=== PATIENT | male | born 1960 | race Caucasian/White ===

== ENCOUNTER → 2016-12-25 11:39 | Outpatient (CLI) | payer MEDICARE, BC ==
[2014-01-11 14:01] VITALS: BMI 23.6
[~2016-12-25 11:39] MED LIST: COUMADIN10 MG PO; COUMADIN2.5 MG PO; COUMADIN5 MG PO; DETROL2 MG PO; FERROUS SULFAT325 MG PO; FEXMID7.5 MG PO; FLOMAX0.4 MG PO; FUROSEMIDE20 MG PO; K-TAB10 MEQ PO; LAMISIL250 MG PO; LOVENOX80 MG/0.8 SQ; NEURONTIN 400400 MG PO; NEURONTIN800 MG PO; NEXIUM40 MG PO; NORCO 10/325 TA1 TA1 PO; PAXIL30 MG PO; PRINIVIL20 MG PO; REGLAN5 MG PO; SENOKOT TO GO8.6 MG PO; SINGULAIR10 MG PO; TRAZODONE HCL50 MG PO; VESICARE10 MG PO; ZANAFLEX4 MG PO
[2017-03-07 09:24] VITALS: BMI 24.3
== END | disposition home or self-care (01) ==
LOC: D.RAD 11:39
DX: K59.00 Constipation, unspecified (principal)

== ENCOUNTER 2017-03-02 18:49 | Emergency (ER) | payer MEDICARE, BC ==
[2014-01-11 14:01] VITALS: BMI 23.6
[~2017-03-02 18:49] MED LIST changes: -FERROUS SULFAT325 MG PO; -FUROSEMIDE20 MG PO; -K-TAB10 MEQ PO; -LAMISIL250 MG PO; -TRAZODONE HCL50 MG PO
[2017-03-07 09:24] VITALS: BMI 24.3
== END 2017-03-02 19:00 | disposition left against medical advice (07) ==
LOC: D.ER 18:49
DX: Z02.9 Encounter for administrative examinations, unspecified (principal)

== ENCOUNTER 2017-03-03 12:24 | Emergency (ER) | payer MEDICARE, BC ==
[2014-01-11 14:01] VITALS: BMI 23.6
[2017-03-03 14:00] LABS: BASOPHILS 0.4 % (0-2); EOSINOPHILS 3.7 % (0-7); HEMATOCRIT 27.2 % (42.0-54.0); HEMOGLOBIN 8.6 g/dL (13.5-17.5); IMMATURE GRANULOCYTES 0.4 % (0-5); LYMPHOCYTES 8.3 % (15-50); MCH 28.7 pg (26.0-34.0); MCHC 31.6 g/dL (31.0-37.0); MCV 90.7 fL (80.0-100.0); MEAN PLATELET VOLUME 8.5 fL (7.4-10.4); MONOCYTES 10.4 % (2-11); NEUTROPHILS 76.8 % (40-80); RDW 18.6 % (11.5-14.5); WBC 7.9 10x3/uL (4.8-10.8)
[2017-03-03 14:01] LABS: PLATELET COUNT 405 10x3/uL (130-400)
[2017-03-03 14:14] LABS: ALBUMIN 2.1 g/dL (3.4-5.0); ALKALINE PHOSPHATASE 128 U/L (46-116); ALT (SGPT) 15 U/L (10-68); CALC OSMOLALITY 263 mosm/kg (275-300); CARBON DIOXIDE 27.5 mmol/L (21.0-32.0); CHLORIDE - SERUM 98 mmol/L (98-107); CREATININE - SERUM 0.7 mg/dL (0.6-1.3); GLUCOSE 95 mg/dL (74-106); POTASSIUM - SERUM 4.2 mmol/L (3.5-5.1); PROTEIN - SERUM 7.4 g/dL (6.4-8.2); SODIUM 133 mmol/L (136-145); UREA NITROGEN 8 mg/dL (7-18); eGFR NON AFRICAN AMERICAN > 90 mL/min (90-120)
[2017-03-03 14:23] LABS: BILIRUBIN - TOTAL 0.08 mg/dL (0.2-1.3)
[2017-03-07 09:24] VITALS: BMI 24.3
== END 2017-03-03 16:25 | disposition home or self-care (01) ==
LOC: D.ER 12:24
PROVIDERS: Emergency Medicine
DX: D64.9 Anemia, unspecified (principal); L89.323 Pressure ulcer of left buttock, stage 3; G82.20 Paraplegia, unspecified; I10 Essential (primary) hypertension; C61 Malignant neoplasm of prostate

== ENCOUNTER 2017-03-06 15:38 | Inpatient (IN) | payer MEDICARE, BC ==
[~2017-03-06] VITALS: Ht 177.8 cm; Wt 97.3 kg
--- NOTE | ~2017-03-06 | OP ---
PATIENT NAME: SRIKANTH JAMES MEDICAL RECORD: [id number] :58 LOCATION:D.M2 D.2107 ADMISSION DATE:03/06/17 SURGEON: NELLI AYALA MD DATE OF OPERATION: 03/10/2017 PREOPERATIVE DIAGNOSES: 1. Multiple decubitus ulcers, these will be better defined below. 2. Third-degree internal hemorrhoidal prolapse of the anus. 3. Intractably symptomatic internal and external hemorrhoids. POSTOPERATIVE DIAGNOSES: 1. Intractably symptomatic internal and external hemorrhoids, the internal hemorrhoids have been bleeding. 2. Fourth degree internal hemorrhoidal prolapse of the anus, not third degree. 3. Low rectal polyp, which was a pedunculated polyp, did not appear to be rectal mucosa, but instead it did appear to be a polypoid lesion. The polyp was a 1.5-cm polyp. 4. Multiple decubitus ulcers, which are described below. PROCEDURES: 1. Procedure for prolapse and hemorrhoids. 2. Transanal excision of low rectal polyp. 3. Excisional debridement of an infected right greater trochanteric bursa. This was a fourth degree decubitus ulcer. There was undermining circumferentially in this bursa. The longest dimension of undermining was 6 cm and was in a caudad direction. Purulence was identified. The debridement was carried out with a scalpel as well as with rongeurs. Cultures were obtained. The debridement included subcutaneous tissue, scar tissue, as well as granulation tissue and he states that the dimensions of debridement, including margins, measured 8.2 cm x 6.7 cm. 4. Excisional debridement of the lateral aspect of the right fifth toe. Debridement included skin and subcutaneous tissue as well as tendinous material. This was an infected ulcer. The debridement margins were 2.8 x 1.4 cm and included skin and subcutaneous tissue as well as eschar and tendinous material. 5. Excisional debridement of right medial decubitus ulcer #1. The dimensions of the debridement, including margins, measured 0.5 cm x 0.9 cm and included eschar as well as exudate. This did not appear to be infected. 6. Excisional debridement of a large right medial decubitus ulcer. Dimensions of debridement, including margins, measured 5.6 x 7.8 cm and included exudate as well some necrotic fascia. Debridement was carried out sharply. 7. Excisional debridement of trochanteric decubitus ulcer, left which was 7.0 x 5.0 cm ulcer included soft eschar as well as necrotic material. This was infected. Also included some necrotic subcutaneous adipose tissue. 8. Excisional debridement of left lateral fifth toe decubitus ulcer. Dimensions of debridement, including margins, measured 2.0 cm x 2.0 cm including skin and subcutaneous tissue as well as eschar. The debridements were carried out sharply with rongeurs as well as with scalpel and debrided back to healthy bleeding tissue. Meticulous hemostasis was achieved with electrocautery. I stuffed some silver rope in the tunneled right greater trochanteric infected bursa. Sterile dressings were applied. DESCRIPTION OF PROCEDURE: The patient in the full lateral decubitus to decubitus position with the left side down, a PPH dilator retractor was placed. The retractor was sewn in place to the surrounding anoderm with 2-0 silks. A OPERATIVE REPORT [id number] SRIKANTH JAMES pursestring suture of 2-0 Prolene was applied 1 cm cephalad to the clear retractor. The stapling device was advanced. The anvil was cephalad to the pursestring suture, which was then tightened and tied. The stapling device was engaged. It was held in place for 3 minutes and then fired. It was then removed. There was an entire donut of internal hemorrhoidal and rectal mucosal tissue within the stapling device. Bleeding along the anastomotic staple line was controlled with 3-0 Vicryl in [id number] fashion. Gelfoam was applied within the anus and lower rectum. A combination of Marcaine and steroid preparation were used to infiltrate the perianal tissues. I then inserted a U-shaped anal retractor. I noted the polypoid lesion that was about 3 cm from the dentate line up in the anus. I grasped this with forceps and then transected it with electrocautery. The resulting bleeding defect was closed with [id number] 3-0 Vicryl sutures. There was no further bleeding. The patient was then extubated and conveyed to post-anesthesia care unit where he was in stable condition. Due to the infected due to the right trochanteric bursa is going to be very important for us to obtain an orthopedic consultation. I have discussed this with Dr. Jain by phone. TRANSINT:[id number] Voice Confirmation ID: [id number] DOCUMENT ID: [id number] NELLI AYALA MD CC: SCOT JAIN MD [id number] DICTATION DATE: 03/10/171533 BELLING MACHINE OPERATOR: 03/11/17 0220 ADM IN [facility] [address] [id number]
--- NOTE | ~2017-03-06 | CN ---
PATIENT NAME:SRIKANTH JAMES MEDICAL RECORD: [id number] : 58 LOCATION:D. D.2107 ADMIT DATE: 03/06/17 ACCOUNT: [id number] CONSULTING PHYSICIAN: NELLI AYALA MD REFERRING PHYSICIAN: SCOT JAIN MD DATE OF CONSULTATION: 03/07/2017 Consultation Note Addendum CHIEF COMPLAINT: Decubitus ulcers. HISTORY OF PRESENT ILLNESS: The patient has several issues. He has had fever, chills as well as several decubitus ulcers, which will be better documented during the patient's operative procedure. He also has symptomatic hemorrhoids. They are high-grade III hemorrhoids. They caused bleeding. The patient has altered sensation in the perineum due to paraplegia. He had a history of multiple DVTs in the past. He has had some low-grade fever recently. He was recently evaluated by Dr. Martinez. Palpation aggravates. Nothing alleviates. Symptoms are mild. I am going to plan for prepped procedure for prolapse and hemorrhoids, possible single column or dual column hemorrhoidectomy. Also, excisional debridement of multiple decubitus ulcers. PAST MEDICAL AND SURGICAL HISTORY: He uses a wheelchair, paraplegia, wears glasses, has had an IVC filter in place, hypertension, history of prostate cancer, gastroesophageal reflux, rectal bleeding, depression and anxiety. Surgeries: Knee, back, hernia, aortic aneurysm repair, esophageal dilation. ALLERGIES: PENICILLIN V. HOME MEDICATIONS: Included warfarin. Please see the nursing list for the complete list of home medications. FAMILY HISTORY: A neurologic disorder as well as cardiovascular disease. SOCIAL HISTORY: Smokes everyday, I have advised him to quit smoking. Drinks alcohol. No recreational drug use. REVIEW OF SYSTEMS: Positive for fatigue. Negative for headache. Negative for chest pain. Positive for fever and chills. Positive for lower gastrointestinal bleeding, no shortness of breath. Positive for extremity contractures. PHYSICAL EXAMINATION: GENERAL: The patient appears acutely ill. Also appears chronically ill. VITAL SIGNS: Reviewed. HEAD: External ears appear normal. EYES: Extraocular movements are intact. NECK: Trachea is midline. CHEST: No intercostal retractions. PULMONARY: Nonlabored, no stridor. ABDOMEN: Nondistended. EXTREMITIES: Contractures are present. CONSULT REPORT [id number] SRIKANTH JAMES INTEGUMENT: Numerous areas of soft eschar with underlying purulence are present at the sites of decubitus ulcers. BACK: Stiff. I noted no definite thoracic kyphosis. LYMPHATICS: No lymphangitic streaking of the exposed extremities. IMPRESSION: 1. Multiple infected decubitus ulcers. 2. Symptomatic internal hemorrhoids with bleeding as well as anal prolapse. PLAN: As described above. TRANSINT:[id number] Voice Confirmation ID: [id number] DOCUMENT ID: [id number] NELLI AYALA MD CC: [id number] DICTATION DATE: 03/08/171719 POULTRY HUSBANDMAN: 03/08/171928 ADM IN [facility] [address] [place] [address]
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
[2017-03-06 16:51] VITALS: BP 173/96
--- NOTE | 2017-03-06 17:01 | NUR ---
IV ACCESS-22 GAUGE INSERTED IN LEFT HAND FOR ACCESS. OTONIEL ARZATE RN
[2017-03-06 17:53] VITALS: BP 173/96; BMI 24.4
[2017-03-06] MEDS ORDERED: NEURONTIN 400400 MG PO (18:33)
[2017-03-06] MEDS ORDERED: K-TAB10 MEQ PO (18:34)
[2017-03-06] MEDS ORDERED: FUROSEMIDE20 MG PO (18:35)
[2017-03-06] MEDS ORDERED: LAMISIL250 MG PO (18:36)
[2017-03-06] MEDS ORDERED: FERROUS SULFAT325 MG PO (18:37)
[2017-03-06] MEDS ORDERED: TRAZODONE HCL50 MG PO (18:38)
[2017-03-06 19:00] VITALS: BP 171/63
--- NOTE | 2017-03-06 19:56 | NUR ---
RECEIVED REPORT, COMPLAINS OF R. SHOULDER PAIN. CHRIS GARCIA
[2017-03-06 20:11] LABS: BASOPHILS 0.6 % (0-2); EOSINOPHILS 4.7 % (0-7); HEMATOCRIT 27.5 % (42.0-54.0); HEMOGLOBIN 8.6 g/dL (13.5-17.5); IMMATURE GRANULOCYTES 1.5 % (0-5); LYMPHOCYTES 12.2 % (15-50); MCH 28.4 pg (26.0-34.0); MCHC 31.3 g/dL (31.0-37.0); MCV 90.8 fL (80.0-100.0); MEAN PLATELET VOLUME 8.6 fL (7.4-10.4); RBC 3.03 10x6/uL (4.20-6.10); RDW 18.4 % (11.5-14.5); WBC 8.2 10x3/uL (4.8-10.8)
[2017-03-06 20:15] LABS: PLATELET COUNT 505 10x3/uL (130-400)
[2017-03-07 03:33] LABS: BASOPHILS 0.6 % (0-2); EOSINOPHILS 5.1 % (0-7); HEMATOCRIT 27.7 % (42.0-54.0); HEMOGLOBIN 8.6 g/dL (13.5-17.5); IMMATURE GRANULOCYTES 1.3 % (0-5); LYMPHOCYTES 9.9 % (15-50); MCH 28.3 pg (26.0-34.0); MCV 91.1 fL (80.0-100.0); MEAN PLATELET VOLUME 8.1 fL (7.4-10.4); MONOCYTES 8.8 % (2-11); NEUTROPHILS 74.3 % (40-80); PLATELET COUNT 464 10x3/uL (130-400); RBC 3.04 10x6/uL (4.20-6.10); RDW 18.4 % (11.5-14.5); WBC 6.8 10x3/uL (4.8-10.8)
[2017-03-07 03:43] LABS: INR 3.18 (0.85-1.17); PROTIME 32.9 SECONDS (11.6-15.0)
[2017-03-07 03:52] LABS: CALC OSMOLALITY 263 mosm/kg (275-300); CALCIUM 8.7 mg/dL (8.5-10.1); CARBON DIOXIDE 23.9 mmol/L (21.0-32.0); CHLORIDE - SERUM 100 mmol/L (98-107); CREATININE - SERUM 0.7 mg/dL (0.6-1.3); GLUCOSE 92 mg/dL (74-106); SODIUM 133 mmol/L (136-145); UREA NITROGEN 7 mg/dL (7-18); eGFR NON AFRICAN AMERICAN > 90 mL/min (90-120)
[2017-03-07 07:33] VITALS: BP 162/91
[2017-03-07 08:00] VITALS: BP 139/82
[2017-03-07 09:24] VITALS: Ht 177.8 cm; Wt 97.3 kg
--- NOTE | 2017-03-07 09:59 | NUR ---
Nutrition follow-up: Visited with pt re: Gavin nutritional supplement for aid with wound healing. Pt refuses to try it. RDN following.
[2017-03-07 20:00] VITALS: BP 119/85
--- NOTE | 2017-03-07 20:58 | NUR ---
PT AWAKE, ALERT, ORIENTED, SITTING UP IN BED. WHEN MEDS REVIEWED WITH PT, HE STATED THAT HE TAKES NEXIUM 40MG PO BID AT HOME AND IS WANTING PROTONIX STARTED BID WELL. PT DENIES ANY ACUTE NEEDS, IS NO ACUTE DISTRESS. CONTINUE TO MONITOR CLOSELY. BED LOW, CALL LIGHT IN REACH, SIDE RAILS X 2, HOB 30 DEGREES.
[2017-03-08] VITALS: BP 137/78
--- NOTE | 2017-03-08 02:03 | NUR ---
PT LYING ON HIS RIGHT SIDE REQUESTED, PILLOW IN BETWEEN HIS KNEES/LEGS AND BEHIND BACK. PTS EYES CLOSED, RESPIRATIONS EVEN AND UNLABORED. PT IS EASILY ROUSABLE TO VERBAL STIMULI. PT DENIES ANY ACUTE NEEDS. WILL CONTINUE TO MONITOR CLOSELY. BED LOW, CALL LIGHT IN REACH, SIDE RAILS X 2, HOB FLAT.
--- NOTE | 2017-03-08 02:05 | NUR ---
WILL HOLD OFF GETTING CONSENTS FOR UPCOMING SURGERY SIGNED R/T PT RECEIVING HIS 15:00 DOSE OF COUMADIN 03/07/17. WILL WAIT FOR A.M. LABS AND NOTIFY PHYSICIANS OF MOST RECENT PT/INR.
[2017-03-08 04:00] VITALS: BP 144/87
--- NOTE | 2017-03-08 04:30 | NUR ---
PT AWAKE, ALERT, ORIENTED, REQUESTING BEDPAN. PT IS NOW ON PRECAUTIONARY CONTACT ISO PER RECENT MICRO RESULT FROM WOUND CULTURES. PT DENIES ANY NEEDS. CONTINUE TO MONITOR CLOSELY. PT HAS BEEN AND REMAINS NPO AFTER MIDNIGHT 03/07/17.
[2017-03-08 05:00] LABS: BASOPHILS 0.4 % (0-2); EOSINOPHILS 3.9 % (0-7); HEMATOCRIT 28.8 % (42.0-54.0); IMMATURE GRANULOCYTES 1.1 % (0-5); LYMPHOCYTES 10.5 % (15-50); MCH 28.3 pg (26.0-34.0); MCHC 31.3 g/dL (31.0-37.0); MCV 90.6 fL (80.0-100.0); MEAN PLATELET VOLUME 8.3 fL (7.4-10.4); MONOCYTES 7.7 % (2-11); NEUTROPHILS 76.4 % (40-80); PLATELET COUNT 474 10x3/uL (130-400); RBC 3.18 10x6/uL (4.20-6.10); RDW 18.6 % (11.5-14.5)
[2017-03-08 05:02] LABS: WBC 9.2 10x3/uL (4.8-10.8)
--- NOTE | 2017-03-08 05:21 | NUR ---
CONSENTS SIGNED AND ON CHART PER ORDER
[2017-03-08 05:32] LABS: CALC OSMOLALITY 273 mosm/kg (275-300); CALCIUM 8.5 mg/dL (8.5-10.1); CARBON DIOXIDE 23.3 mmol/L (21.0-32.0); CHLORIDE - SERUM 103 mmol/L (98-107); CREATININE - SERUM 0.7 mg/dL (0.6-1.3); GLUCOSE 96 mg/dL (74-106); POTASSIUM - SERUM 4.5 mmol/L (3.5-5.1); SODIUM 138 mmol/L (136-145); UREA NITROGEN 8 mg/dL (7-18); eGFR NON AFRICAN AMERICAN > 90 mL/min (90-120)
[2017-03-08 05:49] LABS: INR 1.83 (0.85-1.17); PROTIME 21.1 SECONDS (11.6-15.0)
[2017-03-08 08:00] VITALS: BP 166/97
[2017-03-08 16:00] VITALS: BP 136/79
--- NOTE | 2017-03-08 19:10 | NUR ---
ALERT AND ORIENTED X4. RESTING IN BED. EKG COMPLETE PLACED ON CHART. DENIES ANY NEEDS. CONTINUE PLAN OF CARE AND SAFETY PRECAUTIONS. HAND OFF TO YOU LYON.
--- NOTE | 2017-03-08 19:58 | NUR ---
RECEIVED IN BEDROOM. LAYING WITH EYES OPEN. CONTACT ISOLATION FOR MRSA CONTINUES. ENCOURAGE TO EXPRESS NEEDS. FIRST STEP OVERLAY IN PLACE. MAGAÑA INTACT. CALL LIGHT IN REACH
[2017-03-08 22:35] VITALS: BP 113/62
--- NOTE | 2017-03-08 23:31 | NUR ---
RESTING IN BED WITH EYES CLOSED. NO SIGNS OF DISTRESS. CALL LIGHT IN REACH
[2017-03-09] VITALS: BP 137/79
--- NOTE | 2017-03-09 06:30 | NUR ---
PATIENT PULLED OUT IV. NEW IV STARTED IN LEFT FOREARM X1 ATTEMPT. PATEINT CALM AND IN GOOD SPIRITS.
--- NOTE | 2017-03-09 07:36 | NUR ---
0722-AM ROUNDING DONE WITH PATIENT IN CONTACT ISOLATION FOR MRSA IN WOUND (LEFT HIP). NPO FOR SURGERY TODAY. LEFT FA SEEN WITH NS INFUSING AT 75 CC/HR. MAGAÑA CATH SEEN WITH DATE 03/08. ON 1ST STEP OVERLAY MATTRESS. ON ROOM AIR.
[2017-03-09 08:45] VITALS: BP 169/104
[2017-03-09 12:47] VITALS: BP 168/100
--- NOTE | 2017-03-09 13:07 | NUR ---
PRE-OP MEDS GIVEN WITH SIP WATER. T 100.2, ENCOURAGED TO COUGH AND DEEP BREATH. SOLAR PANEL TECHNICIAN ROOM, HAS AIR VENTS COVERED. DOOR LEFT OPEN.
--- NOTE | 2017-03-09 14:38 | NUR ---
STILL WAITING ON SURGERY TO COME GET PATIENT.
--- NOTE | 2017-03-09 15:05 | NUR ---
PER DR AYALA'S NURSE TO EARLINE [place]RINGTON, DISHARGE FLOW CORDINATIOR, TO GIVE PATIENT CLEAR LIQUIDS AND SURGERY IS IN THE AM. NO REASON KNOWN.
[2017-03-09 17:26] VITALS: BP 129/94
--- NOTE | 2017-03-09 18:03 | NUR ---
PERMITS SIGNED FOR SURGERY PROCEDURE TOMORROW. PATIENT IS INSTRUCTED TO BE NPO AFTER MIDNIGHT, EVEN WITH THE DIP. STATES TO UNDERSTANDING.
--- NOTE | 2017-03-09 19:33 | NUR ---
RECEIVED REPORT, PT IS VISITING WITH FRIEND, DENIES ANY NEEDS AT THIS TIME, BED IS LOW, SRX2, WILL CONTINUE TO MONITOR
[2017-03-09 19:45] VITALS: BP 143/86
--- NOTE | 2017-03-09 23:08 | NUR ---
LION TRAINER AT BEDSIDE FOR VS. NEEDS ADDRESSED AT THIS TIME. CALL LIGHT IN REACH. WILL CONT TO MONITOR.
[2017-03-10 00:29] VITALS: BP 138/81
[2017-03-10 09:12] VITALS: BP 155/89
--- NOTE | 2017-03-10 11:00 | NUR ---
ALERT AND ORIENTED X4. RESTING IN BED. PRE-OP COMPLETE. TAKEN TO SURGERY VIA BED. CONTINUE PLAN OF CARE AND SAFETY PRECAUTIONS.
[2017-03-10 14:42] VITALS: BP 131/82
--- NOTE | 2017-03-10 14:50 | NUR ---
RETURN TO ROOM VIA BED FROM SURGERY. ALERT AND ORIENTED X4. REQUESTING PAIN MEDICATION. BP-132/83, P-82, R-16, T-97.9, O2-92% 2L NC. CONTINUE PLAN OF CARE AND SAFETY PRECAUTIONS.
[2017-03-10 15:18] VITALS: BP 131/82
--- NOTE | 2017-03-10 19:50 | NUR ---
PT RECEIVED LYING IN BED WATCHING TV. AAOX3. FAMILY MEMBER AT BEDSIDE. IV NOTED TO LEFT F/A INFUSING NS @ 75 CC/HR. PATENT. DRESSING CDI. HEART RRR. LUNG SOUNDS CLEAR BILATERALLY. BOWEL SOUNDS ACTIVE X4 QUADRENTS. PEDAL PULSES WEAK BILATERALLY. 1+ PITTING EDEMA NOTED TO BLE. PT DENIES NEEDS AT THIS TIME. BED LOW. PHONE AND CALL LIGHT IN REACH. SRX2.
[2017-03-10 20:18] VITALS: BP 143/83
--- NOTE | 2017-03-10 21:07 | NUR ---
PM MEDS GIVEN AT THIS TIME. PT DENIES NEEDS. BED LOW. PHONE AND CALL LIGHT IN REACH. SRX2.
--- NOTE | 2017-03-10 23:18 | NUR ---
ADMINISTERED NORCO PO PER ORDERS AT THIS TIME FOR PAIN PT RATES 4/10. PT DENIES OTHER NEEDS. BED LOW. PHONE AND CALL LIGHT IN REACH. SRX2.
[2017-03-10 23:57] VITALS: BP 129/79
--- NOTE | 2017-03-11 00:17 | NUR ---
PT RESTING QUIETLY AT THIS TIME WITH EYES CLOSED. RESPIRATIONS EVEN, NON-LABORED. NO ACUTE DISTRESS NOTED AT THIS TIME. BED LOW. PHONE AND CALL LIGHT IN REACH. SRX2.
[2017-03-11 03:52] VITALS: BP 116/69
[2017-03-11 05:27] LABS: BASOPHILS 0.2 % (0-2); EOSINOPHILS 0.7 % (0-7); HEMATOCRIT 28.5 % (42.0-54.0); HEMOGLOBIN 8.8 g/dL (13.5-17.5); IMMATURE GRANULOCYTES 0.6 % (0-5); LYMPHOCYTES 8.9 % (15-50); MCH 28.8 pg (26.0-34.0); MCHC 30.9 g/dL (31.0-37.0); MCV 93.1 fL (80.0-100.0); MEAN PLATELET VOLUME 8.1 fL (7.4-10.4); MONOCYTES 6.9 % (2-11); NEUTROPHILS 82.7 % (40-80); PLATELET COUNT 450 10x3/uL (130-400); RBC 3.06 10x6/uL (4.20-6.10); RDW 18.1 % (11.5-14.5); WBC 9.4 10x3/uL (4.8-10.8)
--- NOTE | 2017-03-11 05:35 | NUR ---
PT SITTING UP IN BED WATCHING TV AT THIS TIME. DENIES NEEDS. BED LOW. PHONE AND CALL LIGHT IN REACH. SRX2.
[2017-03-11 05:40] LABS: CALC OSMOLALITY 273 mosm/kg (275-300); CALCIUM 8.3 mg/dL (8.5-10.1); CARBON DIOXIDE 29.3 mmol/L (21.0-32.0); CHLORIDE - SERUM 105 mmol/L (98-107); CREATININE - SERUM 0.7 mg/dL (0.6-1.3); GLUCOSE 99 mg/dL (74-106); POTASSIUM - SERUM 4.4 mmol/L (3.5-5.1); SODIUM 138 mmol/L (136-145); UREA NITROGEN 6 mg/dL (7-18); eGFR NON AFRICAN AMERICAN > 90 mL/min (90-120)
[2017-03-11 05:42] LABS: INR 1.67 (0.85-1.17); PROTIME 19.6 SECONDS (11.6-15.0)
--- NOTE | 2017-03-11 06:29 | NUR ---
AM MEDS GIVEN AT THIS TIME. PT DENIES NEEDS. BED LOW. PHONE AND CALL LIGHT IN REACH. SRX2.
--- NOTE | 2017-03-11 06:31 | NUR ---
AM MEDS GIVEN AT THIS TIME. PT DENIES NEEDS. BED LOW. PHONE AND CALL LIGHT IN REACH. SRX2.
[2017-03-11 07:30] VITALS: BP 140/65
--- NOTE | 2017-03-11 07:32 | NUR ---
IN CONTACT ISOLATION FOR MRSA TO WOUNDS. PATIENT IS ON 1ST STEP OVERLAY MATTRESS, PARAPLEGIC WITH CONTRACTURES TO BILATERAL LEGS. MAGAÑA CATH PATENT WITH DATE 03/08, LEFT FA WITH NS INFUSING AT 75 CC/HR. ON ROOM AIR. BILATERAL HIP DRESSINGS AND BILATERAL FEET DRESSINGS ARE CDI. WILL MONITOR.
[2017-03-11 12:30] VITALS: BP 118/62
--- NOTE | 2017-03-11 16:05 | NUR ---
Patient Name: SRIKANTH JAMES Admission Status: Urgent Accout number: [id number] Admission Date: 03-06-2017 : 1960 Admission Diagnosis:PRESSURE ULCER OF LEFT HIP, UNSTAGEABLE Attending: TRINITY Current LOS: 5 Anticipated DC Date: 03-13-2017 Planned Disposition: Home WITH HOME HEALTH Primary Insurance: MEDICARE A & B PLANNED EXTERNAL PROVIDER: [facility] Discharge Planning Comments: * Is the patient Alert and Oriented? Yes 0 * How many steps to enter\exit or inside your home? RAMP 0 * PCP DR. JAIN 0 * Pharmacy [facility] 0 * Preadmission Environment Home Alone 0 * ADLs Independent 0 * Equipment Walker Wheelchair 0 * Other Equipment [facility] - MEDICAL EQUIPMENT PROVIDER 0 * List name and contact numbers for known caregivers / representatives who currently or will assist patient after discharge: MARYSOL MANSFIELD, FRIEND, 0 * Community resources currently utilized Home Health , PRIVATE PAY CAREGIVER 0 * Please name any agencies selected above. [facility], PRIVATE PAY CAREGIVERS, 7 DAYS PER WEEK, 3 HOURS PER DAY 0 * Additional services required to return to the preadmission environment? No 0 * Can the patient safely return to the preadmission environment? Yes 0 * Has this patient been hospitalized within the prior 30 days at any hospital? No 0 CM MET WITH PT IN ROOM TO DISCUSS DISCHARGE PLANNING AND NEEDS. PT REPORTS LIVING AT HOME INDEPENDENTLY AND ALONE. PT HAS WALKER THAT HE DOES NOT USE AND A MANUAL WHEELCHAIR, [facility] IS PT'S MEDICAL EQUIPMENT PROVIDER. PT HAS [facility] FOR WOUND CARE AND PRIVATE PAY CAREGIVERS 3 HOURS PER DAY, 7 DAYS PER WEEK. CM DISCUSSED AVAILABILITY OF HOME HEALTH, REHAB SERVICES AND MEDICAL EQUIPMENT. PT WOULD LIKE HOME HEALTH RESUMED, REPORTS HIS CAREGIVER WILL PICK HIM UP FOR DISCHARGE HOME. IMPORTANT MESSAGE FROM MEDICARE PROVIDED AND EXPLAINED. CM SPOKE TO MAIRA OF [facility], PT IS ON HOSPITAL HOLD FOR HOME HEALTH SERVICES. TO RESUME PT'S HOME HEALTH, NOTIFY [facility] AT [phone], FAX DISCHARGE INFORMATION TO [phone]. CM TO FOLLOW AND ASSIST NEEDED. Automatic Thread Winder: Guanaco Jessica
[2017-03-11 16:30] VITALS: BP 123/60
[2017-03-11 19:00] VITALS: BP 145/97
--- NOTE | 2017-03-11 19:58 | NUR ---
ASSESSMENT COMPLETE, A&O. RESPERATIONS EVEN ON ROOM AIR. IV TO LEFT FOREARM SL, SITE CLEAN AND DRY. MAGAÑA DRAINING TO GRAVITY, DENIES PAIN OR NEEDS, BED LOW, CL IN REACH.
[2017-03-12] VITALS: BP 119/69
--- NOTE | 2017-03-12 00:06 | NUR ---
MORPHINE 2 MG GIVEN AT PT REQUEST FOR C/O PAIN TO BACK AND HIPS. RATES PAIN AT A 6 ON PAIN SCALE.
--- NOTE | 2017-03-12 00:11 | NUR ---
FUEL ISLAND ATTENDANT AT BEDSIDE TO OBTAIN VITALS, CALL LIGHT IN REACH. WILL CONTINUE TO WITH PLAN OF CARE.
--- NOTE | 2017-03-12 01:17 | NUR ---
RESTING WITH EYES CLOSED, RESPERATIONS EVEN, NO S/S DISTRESS NOTED.
[2017-03-12 04:00] VITALS: BP 155/97
[2017-03-12 05:15] LABS: BASOPHILS 0.6 % (0-2); EOSINOPHILS 4.4 % (0-7); HEMATOCRIT 27.4 % (42.0-54.0); HEMOGLOBIN 8.3 g/dL (13.5-17.5); IMMATURE GRANULOCYTES 0.8 % (0-5); LYMPHOCYTES 15.3 % (15-50); MCH 28.4 pg (26.0-34.0); MCHC 30.3 g/dL (31.0-37.0); MCV 93.8 fL (80.0-100.0); MONOCYTES 10.5 % (2-11); NEUTROPHILS 68.4 % (40-80); PLATELET COUNT 404 10x3/uL (130-400); RBC 2.92 10x6/uL (4.20-6.10); RDW 18.1 % (11.5-14.5)
--- NOTE | 2017-03-12 05:23 | NUR ---
RN OBGYN AT BED SIDE, BAHT AND LINEN CHANGE COMPLETE, REPOSITINED IN BED FOR COMFORT.
[2017-03-12 05:25] LABS: WBC 6.7 10x3/uL (4.8-10.8)
[2017-03-12 05:34] LABS: CALC OSMOLALITY 275 mosm/kg (275-300); CALCIUM 8.5 mg/dL (8.5-10.1); CHLORIDE - SERUM 107 mmol/L (98-107); CREATININE - SERUM 0.7 mg/dL (0.6-1.3); GLUCOSE 84 mg/dL (74-106); SODIUM 140 mmol/L (136-145); UREA NITROGEN 7 mg/dL (7-18); eGFR NON AFRICAN AMERICAN > 90 mL/min (90-120)
--- NOTE | 2017-03-12 07:15 | NUR ---
PT CURRENTLY IN ROOM WITH SEQUENCING MACHINE OPERATOR BEING CLEANED UP FOR INC BM WILL CONT TO MONITOR
[2017-03-12 08:00] VITALS: BP 164/95
[2017-03-12 12:00] VITALS: BP 136/83
--- NOTE | 2017-03-12 12:45 | NUR ---
MARIAM, WOUND CARE NURSE AND I WENT IN TO ASSESS PT WOUNDS PER ORDER. PT LEFT HIP WITH PU UNSTAGEABLE WITH WHITE/YELLOW/RUSSELL ESCHAR STILL INTACT AND TUNNELING NOTED. MARIAM PACKED WITH IODOFORM AND TOPPED WITH 4X4S AND TAPE. SIGNED AND DATED. LEFT HIP WITH STG 3 WOUND BED IS RED/PINK, PACKED WITH IODOFORM AND TOPPED WITH 4X4S AND TAPE, SIGNED AND DATED. R KNEE WITH STG 2 PU AND REDNESS NOTED. MEPELEX DRESSING PLACED, SIGNED AND DATED. BILAT FEET DRESSINGS WERE DONE THIS AM BY ORTHO. BOTH ARE SIGNED AND DATED.
--- NOTE | 2017-03-12 13:36 | NUR ---
Nutrition follow-up: Diet: ADA consistent CHO PO intake 100% of meals labs reviewed +BM Wt: 170# PO intake good at this time RDN following.
[2017-03-12 15:23] LABS: INR 1.71 (0.85-1.17)
[2017-03-12 16:00] VITALS: BP 148/65
--- NOTE | 2017-03-12 17:18 | NUR ---
PT SITTING UP IN BED EATING DINNER DENIES NEEDS WILL CONT TO MONITOR
--- NOTE | 2017-03-12 19:45 | NUR ---
MORPHINE 2 MG GIVEN FOR C/O PAIN TO BUTTOCKS AND SHOULDER, RATES PAIN AT A 4 ON PAIN SCALE. WILL CONT TO MONITOR.
[2017-03-12 20:00] VITALS: BP 135/84
--- NOTE | 2017-03-12 21:53 | NUR ---
HS MEDS GIVEN, NORCO 1 TAB GIVEN FOR C/O PAIN. POSITIONED IN BED TO RIGHT SIDE AT PT REQUEST, PILLOWS PLACED BETWEEN KNEES AND BEHIND BACK FOR COMFORT. NO OTHER NEEDS AT THIS TIME, BED LOW, CL IN REACH.
[2017-03-13] VITALS: BP 126/76
--- NOTE | 2017-03-13 01:16 | NUR ---
RESTING WITH EYES CLOSED, RESPERATIONS EVEN, NO S/S DISTRESS NOTED.
[2017-03-13 04:00] VITALS: BP 167/99
[2017-03-13 04:43] LABS: BASOPHILS 0.6 % (0-2); EOSINOPHILS 4.3 % (0-7); HEMATOCRIT 25.9 % (42.0-54.0); IMMATURE GRANULOCYTES 0.5 % (0-5); LYMPHOCYTES 16.1 % (15-50); MCH 28.4 pg (26.0-34.0); MCHC 30.9 g/dL (31.0-37.0); MEAN PLATELET VOLUME 8.1 fL (7.4-10.4); NEUTROPHILS 70.5 % (40-80); PLATELET COUNT 378 10x3/uL (130-400); RBC 2.82 10x6/uL (4.20-6.10); RDW 18.1 % (11.5-14.5); WBC 6.2 10x3/uL (4.8-10.8)
[2017-03-13 04:46] LABS: MCV 91.8 fL (80.0-100.0)
[2017-03-13 04:49] LABS: INR 1.75 (0.85-1.17); PROTIME 20.4 SECONDS (11.6-15.0)
--- NOTE | 2017-03-13 04:57 | NUR ---
TELETYPE INSTALLER MEDS GIVEN ALONG WITH A NORCO 1 TAB FOR C/O PAIN OF PAIN TO BACK SIDE AND HIPS. RATES PAIN AT A 6 ON PAIN SCALE. PT INCONTINENT OF BOWEL, BATH AND LINEN CHANGE COMPLETE.
[2017-03-13 04:58] LABS: CALC OSMOLALITY 275 mosm/kg (275-300); CALCIUM 8.4 mg/dL (8.5-10.1); CARBON DIOXIDE 28.4 mmol/L (21.0-32.0); CHLORIDE - SERUM 106 mmol/L (98-107); CREATININE - SERUM 0.6 mg/dL (0.6-1.3); GLUCOSE 89 mg/dL (74-106); POTASSIUM - SERUM 3.7 mmol/L (3.5-5.1); SODIUM 140 mmol/L (136-145); UREA NITROGEN 6 mg/dL (7-18); eGFR NON AFRICAN AMERICAN > 90 mL/min (90-120)
--- NOTE | 2017-03-13 05:36 | NUR ---
WILL CONTINUE WITH PLAN OF CARE, CALL LIGHT IN REACH.
--- NOTE | 2017-03-13 07:47 | NUR ---
PT IS RESTIN GIN BED WITH EYES OPEN. ALERT AND ORIENTED X 3. DENIES ACUTE DISCOMFORT OR NEEDS AT THIS TIME. RESTING ON A 1ST STEP MATTRESS. MAGAÑA CATH IS PATENT AND DRAINING TO A GRAVITY BAG. CONTACT PRECAUTIONS ARE IN USE. DRESSINGS ARE ALL CDI. SR'S ARE UP X 3 IN BED. CALL LIGHT AND BEDSIDE TABLE ARE WITHIN EASY REACH.
[2017-03-13 08:00] VITALS: BP 161/93
--- NOTE | 2017-03-13 09:12 | NUR ---
RESTS ON 1ST STEP MATRESS. IV PATENT. NO NEEDS VOICED AT THIS TIME. CALL LIGHT IN REACH. WILL MONITOR.
--- NOTE | 2017-03-13 09:23 | NUR ---
PT RESTING IN BED WATCHING TV. NO NEEDS VOICED.
[2017-03-13 12:00] VITALS: BP 156/97
--- NOTE | 2017-03-13 12:01 | NUR ---
PT RESTING IN BED WITH EYES OPEN. NO ACUTE DISTRESS NOTED.
--- NOTE | 2017-03-13 14:59 | NUR ---
PT RESTING IN BED WATCHING TV. NO NEEDS VOICED.
[2017-03-13 16:01] VITALS: BP 154/88
--- NOTE | 2017-03-13 17:09 | NUR ---
PT IS RESTING IN BED VISITING WITH A FRIEND. IV ABX INFUSING. NO NEEDS VOICED.
--- NOTE | 2017-03-13 19:33 | NUR ---
ALERT/AWAKE ORIENTED X 4, WATCHING TV. RATES PAIN LEVEL AT 3 ON NUMBER SCALE. DENIES ANY NEEDS. IN CONTACT ISOLATION FOR PENDING CULTURES OF DECUB'S OF HIPS AND HEELS. MAGAÑA INTACT/PATENT. CALL LIGHT AND BEDSIDE TABLE WITH PERSONAL NEEDS IN REACH.
--- NOTE | 2017-03-13 20:58 | NUR ---
ADMIN SCHED MEDS. REC ORDER FROM DR JAIN TO RENEW MORPHINE. ADMIN 2MG MORPHINE IV PER REQUEST FOR C/O SHOULDER AND BUTTOCK PAIN LEVEL 6 ON NUMBER SCALE. REPOSITIONED TO RIGHT SIDE WITH PILLOW TO BACK.
[2017-03-13 21:42] VITALS: BP 136/90
[2017-03-14 00:56] VITALS: BP 132/80
--- NOTE | 2017-03-14 01:24 | NUR ---
RESTING WITH EYES CLOSED. RR 18 EVEN U/L. NO S/S OF PAIN OR DISCOMFORT. CALL LIGHT IN REACH.
[2017-03-14 04:00] VITALS: BP 190/106
[2017-03-14 05:51] LABS: INR 1.73 (0.85-1.17); PROTIME 20.2 SECONDS (11.6-15.0)
--- NOTE | 2017-03-14 07:32 | NUR ---
AWAKE. DENIES ANY NEEDS. STATED "NO" TO OFFERING TO PUT IN ANOTHER IV. SCD'S ARE ON. BED ALARM IS ON.
--- NOTE | 2017-03-14 08:14 | NUR ---
AM ROUNDS - PT IS AWAKE IN BED. PT IS A&O. 1ST STEP OVERLAY MATTRESS. MAGAÑA DATED FOR 03/08 IAS DRAINING CLEAR YELLOW. DRESSING TO BILATERAL HIPS, BLE. PT IS ON RA. LEFT FA, NS @ 75CC/HR. PT STATES HE HAS 4/10 PAIN AND WOULD LIKE SOME PAIN MEDICATION. PT IS A PARAPALIGIC. WILL CONTINUE TO MONITOR
[2017-03-14 09:30] VITALS: BP 147/100
[2017-03-14 16:11] VITALS: BP 175/103
[2017-03-14 17:43] VITALS: BP 172/105
--- NOTE | 2017-03-14 18:23 | NUR ---
PM NOT - DRESSING CHANGES TO BILAT HIPS AND BILAT FEET COMPLETED TODAY. PT IN BED EATING DINNER. NO NEEDS AT TH TIME
--- NOTE | 2017-03-14 19:43 | NUR ---
MORPHINE 2 MG GIVEN FOR C/O PAIN TO BOTTUM, RATES PAIN AT A 6 ON PAIN SCALE. WILL CONT TO MONITOR.
[2017-03-14 20:00] VITALS: BP 136/93
--- NOTE | 2017-03-14 21:24 | NUR ---
HS MEDS GIVEN WITH FRESH ICE WATER. NORCO 1 TAB GIVEN FOR C/O PAIN, RATES PAIN AT A 4 ON PAIN SCALE. PT INCONTINENT OF BOWEL, CABLE SPOOLER ALSO AT BED SIDE TO ASSIST IN CLEANING PT AND CHANGING PADDING. NO OTHER NEEDS AT THIS TIME, BED LOW, CL IN REACH.
[2017-03-15] VITALS: BP 140/98
--- NOTE | 2017-03-15 00:05 | NUR ---
REPORT GIVEN TO Vel ESTRADA LPN.
--- NOTE | 2017-03-15 00:18 | NUR ---
ORGANIZATION DEVELOPMENT CONSULTANT AT BED SIDE TO OBTAIN VITALS. WILL CONT PLAN OF CARE.
[2017-03-15 04:00] VITALS: BP 155/89
[2017-03-15 05:38] LABS: INR 1.63 (0.85-1.17); PROTIME 19.3 SECONDS (11.6-15.0)
[2017-03-15 08:15] VITALS: BP 151/90
--- NOTE | 2017-03-15 08:21 | NUR ---
AM ROUNDS - PT IN BED ON BACK. 1ST STEP OVERLAY METTRESS. ARCHANA DATED FOR 03/08 DRAINING CLEAR YELLOW. PT ON RA. LEFT FA WITH NS AT 75CC/HR. CONTACT ISOLATION. DRESSING TO BILATERAL HIPS AND FEET. WILL COTINUE TO MONITOR.
[2017-03-15 12:08] VITALS: BP 135/93
[2017-03-15 15:49] VITALS: BP 157/76
--- NOTE | 2017-03-15 16:48 | NUR ---
PM NOTE - PT SITTING UP IN THE BED EATING DINNER WITH NO NEEDS AT THIS TIME. WILL CONTINUE TO MONITOR.
--- NOTE | 2017-03-15 19:32 | NUR ---
RESUMED CARE OF PT, LYING IN BED RESPIRATIONS EVEN AND UNLABORED ON ROOM AIR. LEFT FOREARM INFUSING NS @ 75. MAGAÑA TO GRAVITY, AND 1ST STEP OVERLAY INFLATED. DRESSINGS TO BILATERAL HIPS AND FEET. NO NEEDS VOCIED AT THIS TIME. CALL LIGHT IN REACH. WILL CONTINUE TO MONITOR. SEE NURSE ASSESSMENT.
[2017-03-15 20:00] VITALS: BP 166/98
--- NOTE | 2017-03-15 22:53 | NUR ---
DRESSINGS CHANGED TO BILATERAL HIPS AND FEET. PACKED AND DRESSED PER ORDERS. REPOSITIONED FOR COMFORT. CALL LIGHT IN REACH. WILL CONTINUE TO MONITOR.
[2017-03-16] VITALS: BP 145/87
[2017-03-16 05:32] LABS: BASOPHILS 1.4 % (0-2); EOSINOPHILS 5.9 % (0-7); HEMATOCRIT 28.2 % (42.0-54.0); HEMOGLOBIN 8.8 g/dL (13.5-17.5); IMMATURE GRANULOCYTES 0.6 % (0-5); LYMPHOCYTES 14.9 % (15-50); MCH 28.2 pg (26.0-34.0); MCHC 31.2 g/dL (31.0-37.0); MCV 90.4 fL (80.0-100.0); MEAN PLATELET VOLUME 8.5 fL (7.4-10.4); MONOCYTES 10.3 % (2-11); NEUTROPHILS 66.9 % (40-80); PLATELET COUNT 402 10x3/uL (130-400); RBC 3.12 10x6/uL (4.20-6.10); RDW 17.9 % (11.5-14.5); WBC 6.3 10x3/uL (4.8-10.8)
[2017-03-16 05:39] LABS: INR 1.52 (0.85-1.17); PROTIME 18.3 SECONDS (11.6-15.0)
[2017-03-16 05:48] LABS: CALC OSMOLALITY 277 mosm/kg (275-300); CALCIUM 8.7 mg/dL (8.5-10.1); CARBON DIOXIDE 29.5 mmol/L (21.0-32.0); CHLORIDE - SERUM 105 mmol/L (98-107); CREATININE - SERUM 0.6 mg/dL (0.6-1.3); GLUCOSE 82 mg/dL (74-106); POTASSIUM - SERUM 3.6 mmol/L (3.5-5.1); SODIUM 141 mmol/L (136-145); UREA NITROGEN 6 mg/dL (7-18); eGFR NON AFRICAN AMERICAN > 90 mL/min (90-120)
--- NOTE | 2017-03-16 05:55 | NUR ---
AM MEDS PASSED, MORPHINE 2MG IVP GIVEN FOR PAIN TO WOUNDS. CALL LIGHT IN REACH. REPOSITIONED FOR COMFORT.
[2017-03-16] MEDS ORDERED: FLORAJEN3 CAPS460 MG PO (07:45)
[2017-03-16] MEDS ORDERED: AMOXICILLIN875 MG PO (07:46)
[2017-03-16] MEDS ORDERED: KEFLEX500 MG PO (07:47)
[2017-03-16 07:55] VITALS: BP 166/93
[2017-03-16 12:00] VITALS: BP 154/93
--- NOTE | 2017-03-16 12:14 | NUR ---
Patient Name: SRIKANTH JAMES Encounter No: [id number] : 1960 Primary Insurance: MEDICARE A & B Anticipated DC Date: 03-16-2017 Planned Disposition: Home WITH HOME HEALTH External Planned Provider: [facility] DCP follow-up note: CM RECEIVED DISCHARGE ORDER, MET WITH PT IN ROOM TO DISCUSS DISCHARGE PLANNING AND NEEDS. PT REPORTS NEEDING HOME HEALTH RESUMED, DENIES OTHER NEEDS; PT HAS SOMEONE TO PICK HIM UP TODAY FOR DISCHARGE HOME. IMPORTANT MESSAGE FROM MEDICARE PROVIDED AND EXPLAINED. CM CALLED AND NOTIFIED [facility] AT [phone] OF PT'S DISCHARGE, FAXED DISCHARGE INFORMATION TO [phone]. Application Spec: Guanaco Jessica
--- NOTE | 2017-03-16 13:39 | NUR ---
ALL DRSGS CHANGED. L.HIP HAS SCANT DRAINAGE, R.HIP NO DRAINAGE, L.FOOT ALMOST COMPLETELY HEALED, R.FOOT VERY SHALLOW WOUND BEDDING BEEFT RED NO DRAINAGE HEALING WELL ALSO. CLEANSED AND CHANGED PER WOUND CARE ORDERS. PT SITTING UP IN BED RESTING QUIETLY, DOESNT FEEL TOO WELL AND DIDNT WANT TO EAT. DENIES ANY FURTHER NEEDS AT THIS TIME. CL IN REACH, BED IN LOWEST, SIDE RAILS X2. WILL CPOC.
--- NOTE | 2017-03-16 15:24 | NUR ---
D/C PTS L.FA PIV WITH CATHETER TIP FULLY INTACT. D/C PTS MAGAÑA WITH CATH BULB INTACT. TRANSFERRED PT INTO HIS W/C AND AWAITING HIS RIDE. PT RESTING AND SIGNED D/C PAPERS DENIES ANY QUESTIONS OR CONCERNS. WILL CTM.
== END 2017-03-16 15:48 | disposition home health service (06) | DRG 571 ==
LOC: D.M2 15:38
PROVIDERS: Surgery; ADMIT Family Medicine
PROC: 0DBQ7ZZ Excision of Anus, Via Natural or Artificial Opening (ICD-10-PCS; 2017-03-10)
PROC: 0LBV0ZZ Excision of Right Foot Tendon, Open Approach (ICD-10-PCS; 2017-03-10)
PROC: 0JBN0ZZ Excision of Right Lower Leg Subcutaneous Tissue and Fascia, Open Approach (ICD-10-PCS; 2017-03-10)
PROC: 0JBR0ZZ Excision of Left Foot Subcutaneous Tissue and Fascia, Open Approach (ICD-10-PCS; 2017-03-10)
PROC: 0JBQ0ZZ Excision of Right Foot Subcutaneous Tissue and Fascia, Open Approach (ICD-10-PCS; 2017-03-10)
PROC: 06BY0ZC Excision of Hemorrhoidal Plexus, Open Approach (ICD-10-PCS; principal; 2017-03-10 12:00)
PROC: 0JBP0ZZ Excision of Left Lower Leg Subcutaneous Tissue and Fascia, Open Approach (ICD-10-PCS; 2017-03-10 12:00)
DX: L89.220 Pressure ulcer of left hip, unstageable (principal); L03.119 Cellulitis of unspecified part of limb; G82.20 Paraplegia, unspecified; L89.213 Pressure ulcer of right hip, stage 3; L89.529 Pressure ulcer of left ankle, unspecified stage; L89.519 Pressure ulcer of right ankle, unspecified stage; L89.899 Pressure ulcer of other site, unspecified stage; B95.61 Methicillin susceptible Staphylococcus aureus infection as the cause of diseases classified elsewhere; B95.2 Enterococcus as the cause of diseases classified elsewhere; D50.0 Iron deficiency anemia secondary to blood loss (chronic); Z79.01 Long term (current) use of anticoagulants; K64.3 Fourth degree hemorrhoids; Z86.718 Personal history of other venous thrombosis and embolism; I10 Essential (primary) hypertension; K21.9 Gastro-esophageal reflux disease without esophagitis; F41.9 Anxiety disorder, unspecified; F32.9 Major depressive disorder, single episode, unspecified; K62.2 Anal prolapse; K62.0 Anal polyp; Z72.0 Tobacco use

== ENCOUNTER → 2017-03-20 16:18 | Outpatient (CLI) | payer MEDICARE, BC ==
[2017-03-07 09:24] VITALS: BMI 24.3
[~2017-03-20 16:18] MED LIST changes: +AMOXICILLIN875 MG PO; +FERROUS SULFAT325 MG PO; +FLORAJEN3 CAPS460 MG PO; +FUROSEMIDE20 MG PO; +K-TAB10 MEQ PO; +KEFLEX500 MG PO; +LAMISIL250 MG PO; +TRAZODONE HCL50 MG PO
[2017-03-20 17:55] LABS: INR 5.63 (0.85-1.17); PROTIME 51.9 SECONDS (11.6-15.0)
== END | disposition home or self-care (01) ==
LOC: D.LABREF 16:18
PROVIDERS: Family Medicine
DX: Z51.81 Encounter for therapeutic drug level monitoring (principal); Z79.01 Long term (current) use of anticoagulants

== ENCOUNTER → 2017-03-23 14:05 | Outpatient (CLI) | payer MEDICARE, BC ==
[2017-03-07 09:24] VITALS: BMI 24.3
[2017-03-23 14:26] LABS: INR 3.83 (0.85-1.17); PROTIME 38.2 SECONDS (11.6-15.0)
== END | disposition home or self-care (01) ==
LOC: D.LABREF 14:05
PROVIDERS: Family Medicine
DX: Z51.81 Encounter for therapeutic drug level monitoring (principal); Z79.01 Long term (current) use of anticoagulants

== ENCOUNTER → 2017-03-26 15:13 | Outpatient (CLI) | payer MEDICARE, BC ==
[2017-03-07 09:24] VITALS: BMI 24.3
[2017-03-26 15:50] LABS: INR 1.18 (0.85-1.17); PROTIME 14.9 SECONDS (11.6-15.0)
== END | disposition home or self-care (01) ==
LOC: D.LABREF 15:13
PROVIDERS: Family Medicine
DX: Z51.81 Encounter for therapeutic drug level monitoring (principal); Z79.899 Other long term (current) drug therapy

== ENCOUNTER → 2017-03-26 15:53 | Outpatient (CLI) | payer MEDICARE, BC ==
[2017-03-07 09:24] VITALS: BMI 24.3
== END | disposition home or self-care (01) ==
LOC: D.LABREF 15:53
DX: Z51.81 Encounter for therapeutic drug level monitoring (principal); Z79.01 Long term (current) use of anticoagulants

== ENCOUNTER → 2017-04-02 14:19 | Outpatient (CLI) | payer MEDICARE, BC ==
[2017-03-07 09:24] VITALS: BMI 24.3
[2017-04-02 14:53] LABS: INR 1.48 (0.85-1.17); PROTIME 17.9 SECONDS (11.6-15.0)
== END | disposition home or self-care (01) ==
LOC: D.LABREF 14:19
PROVIDERS: Family Medicine
DX: Z51.81 Encounter for therapeutic drug level monitoring (principal); Z79.01 Long term (current) use of anticoagulants

== ENCOUNTER → 2017-04-17 15:08 | Outpatient (CLI) | payer MEDICARE, BC ==
[2017-03-07 09:24] VITALS: BMI 24.3
[2017-04-17 17:03] LABS: INR 2.21 (0.85-1.17); PROTIME 24.6 SECONDS (11.6-15.0)
== END | disposition home or self-care (01) ==
LOC: D.LABREF 15:08
PROVIDERS: Family Medicine
DX: Z51.81 Encounter for therapeutic drug level monitoring (principal); Z79.01 Long term (current) use of anticoagulants

== ENCOUNTER 2017-04-28 08:17 | Outpatient (CLI) | payer MEDICARE, BC ==
[~2017-04-28] VITALS: Ht 177.8 cm; Wt 77.3 kg
[~2017-04-28 08:17] MED LIST changes: +CYCLOBENZAPRINE10 MG PO; -FEXMID7.5 MG PO
[2017-04-28] MEDS ORDERED: COUMADIN2.5 MG PO (08:58)
[2017-04-28] MEDS ORDERED: COUMADIN5 MG PO (08:59)
[2017-04-28] MEDS ORDERED: LEVAQUIN500 MG PO (09:07)
[2017-04-28 09:16] VITALS: Ht 177.8 cm; Wt 77.3 kg
--- NOTE | 2017-04-28 16:15 | NUR ---
RIGHT WRIST PIV DC'D WITH TIP INTACT. PATIENT DENIES COMPLAINTS. DISCHARGED HOME VIA WHEELCHAIR WITH CAREGIVER
== END 2017-04-28 16:15 | disposition home or self-care (01) ==
LOC: D.OPS 08:17
DX: D64.9 Anemia, unspecified (principal)

== ENCOUNTER 2017-12-15 08:33 | Outpatient (CLI) | payer MEDICARE, BC ==
[~2017-12-15] VITALS: Ht 177.8 cm; Wt 74.8 kg
[~2017-12-15 08:33] MED LIST changes: +LEVAQUIN500 MG PO
[2017-12-15] MEDS ORDERED: PEPCID20 MG PO (09:22)
[2017-12-15 09:37] VITALS: BP 139/83; Ht 177.8 cm; Wt 74.8 kg
[2017-12-15 09:46] LABS: BASOPHILS 0.2 % (0-2); EOSINOPHILS 0.9 % (0-7); HEMATOCRIT 35.5 % (42.0-54.0); HEMOGLOBIN 11.1 g/dL (13.5-17.5); IMMATURE GRANULOCYTES 0.1 % (0-5); LYMPHOCYTES 10.4 % (15-50); MCH 29.7 pg (26.0-34.0); MCHC 31.3 g/dL (31.0-37.0); MCV 94.9 fL (80.0-100.0); MEAN PLATELET VOLUME 8.8 fL (7.4-10.4); MONOCYTES 7.4 % (2-11); PLATELET COUNT 279 10x3/uL (130-400); RBC 3.74 10x6/uL (4.20-6.10); RDW 15.1 % (11.5-14.5); WBC 9.5 10x3/uL (4.8-10.8)
[2017-12-15 10:01] LABS: APTT 23.8 SECONDS (22.8-39.4); INR 1.05 (0.85-1.17); PROTIME 13.3 SECONDS (11.6-15.0)
[2017-12-15 10:02] LABS: CALC OSMOLALITY 282 mosm/kg (275-300); CALCIUM 9.3 mg/dL (8.5-10.1); CARBON DIOXIDE 30.2 mmol/L (21.0-32.0); CHLORIDE - SERUM 105 mmol/L (98-107); CREATININE - SERUM 0.6 mg/dL (0.6-1.3); GLUCOSE 87 mg/dL (74-106); POTASSIUM - SERUM 4.4 mmol/L (3.5-5.1); SODIUM 142 mmol/L (136-145); UREA NITROGEN 16 mg/dL (7-18); eGFR NON AFRICAN AMERICAN > 90 mL/min (90-120)
== END 2017-12-15 15:09 | disposition home or self-care (01) ==
LOC: D.OPS 08:33 → EDSTATUS 14:00 → D.PAN 14:00 → D.OPS 14:00
PROVIDERS: Anesthesiology
DX: S82.144D Nondisplaced bicondylar fracture of right tibia, subsequent encounter for closed fracture with routine healing (principal); M19.019 Primary osteoarthritis, unspecified shoulder; M19.111 Post-traumatic osteoarthritis, right shoulder; Z01.810 Encounter for preprocedural cardiovascular examination; Z01.811 Encounter for preprocedural respiratory examination; Z01.812 Encounter for preprocedural laboratory examination; Z53.9 Procedure and treatment not carried out, unspecified reason

== ENCOUNTER 2017-12-29 05:11 | Day surgery (SDC) | payer MEDICARE, BC ==
[~2017-12-29] VITALS: Ht 177.8 cm; Wt 74.8 kg
--- NOTE | ~2017-12-29 | OP ---
PATIENT NAME: SRIKANTH LU MEDICAL RECORD: [id number] :[birth year] LOCATION:[facility] ADMISSION DATE: SURGEON: SRIKANTH EAGLE DO DATE OF OPERATION: 12/29/2017 PROCEDURE PERFORMED: Removal of hardware, right tibia. PREOPERATIVE DIAGNOSIS: Right tibia exposed and painful hardware. POSTOPERATIVE DIAGNOSIS: Right tibia exposed and painful hardware. INDICATIONS: Mr. Lu is a 57-year-old male who had ORIF of his right tibia approximately 5 years ago. Over the last 4-5 months, when the screws from the plate poked through the skin on the medial side of the tibia, he had been keeping it clean and wrapping it out with some type of dressing with bacterial barrier. He was scheduled to have surgery in September to have this removed; however, it got canceled due to some medical problems and then returned to have it removed today. He was informed of the risks and benefits including fracture, need for further placement of plate, and infection. He was told I would do cultures in the operating room and no way he would make sure it is not infected. He is okay with this plan and he knew the infection was a big risk with this and he consented to the procedure. DESCRIPTION OF PROCEDURE: The patient was given a block in preoperative area by anesthesia. He was taken to the operative suite, laid in supine position, antibiotics were held until cultures were taken. The right lower extremity was prepped and draped in sterile fashion with tourniquet above the knee under the drapes. Once timeout was performed, the right lower extremity was exsanguinated and then tourniquet was inflated. Tourniquet was up for 21 minutes total during the procedure. Incision then commenced on the lateral tibia in an L-shape down the side of the plate. Careful dissection was made down to the plate itself. Screws were removed and the plate was removed. Ten screws total in the plate. The screw that was sticking through the medial side. The hole for that screw was curetted out as were the other ones, but curetted out from the medial side. The skin that had been opened on that side was ellipsed and all the tissue around it was taken out, so it would not have a draining sinus. Then the wound was irrigated and the fascia was closed on the lateral side with 2-0 Vicryl in mheggp-be-xnoic fashion and the skin was closed with 2-0 inverted interrupted sutures and the medial side as well where small ellipse was and then the skin was closed with ZipLine. Adaptic, 4 x 4s, ABD, Kerlix and Estuardo wrap were then wrapped from the foot up to the knee to cover the wound. The patient is awakened and taken to recovery in stable condition. Blood loss is approximately 20 mL. The patient was given antibiotics after the cultures were taken and were taken once the hardware was exposed and removed. TRANSINT:[id number] Voice Confirmation ID: [id number] DOCUMENT ID: [id number] OPERATIVE REPORT [id number] SRIKANTH LU,SRIKANTH Daily DO at 1121 CC: [id number] DICTATION DATE: 12/29/17 0848 ENVIRONMENTAL FIELD SERVICES TECHNICIAN: 12/29/17 0950 [facility] 12/29/[address] [address]
[~2017-12-29 05:11] MED LIST changes: +PEPCID20 MG PO
[2017-12-29 06:23] VITALS: BP 108/76; Ht 177.8 cm; Wt 74.8 kg
[2017-12-29 06:56] LABS: HEMATOCRIT 33.6 % (42.0-54.0); LYMPHOCYTES 19.6 % (15-50); MCH 30.4 pg (26.0-34.0); MCHC 32.7 g/dL (31.0-37.0); MCV 92.8 fL (80.0-100.0); MEAN PLATELET VOLUME 8.6 fL (7.4-10.4); NEUTROPHILS 72.2 % (40-80); PLATELET COUNT 274 10x3/uL (130-400); RBC 3.62 10x6/uL (4.20-6.10); RDW 14.4 % (11.5-14.5)
[2017-12-29] MEDS ORDERED: PERCOCET 7.5/321 TAB PO (08:43)
[2017-12-29] MEDS ORDERED: DOXYCYCLINE HY100 M2 PO (08:43)
== END 2017-12-29 10:55 | disposition home or self-care (01) ==
LOC: D.OPS 05:11 → D.PAN 07:30 → D.OPS 07:30
PROVIDERS: Anesthesiology
DX: T85.848A Pain due to other internal prosthetic devices, implants and grafts, initial encounter (principal); I10 Essential (primary) hypertension; K21.9 Gastro-esophageal reflux disease without esophagitis; Z01.812 Encounter for preprocedural laboratory examination

== ENCOUNTER → 2018-01-04 09:48 | Outpatient (CLI) | payer MEDICARE, BC ==
[2017-12-29 06:23] VITALS: BMI 23.7
[~2018-01-04 09:48] MED LIST changes: +DOXYCYCLINE HY100 M2 PO; +PERCOCET 7.5/321 TAB PO
== END | disposition home or self-care (01) ==
LOC: D.RAD 09:48
DX: T82.868A Thrombosis due to vascular prosthetic devices, implants and grafts, initial encounter (principal)

== ENCOUNTER 2018-01-14 07:55 | Outpatient (CLI) | payer MEDICARE, BC ==
[~2018-01-14] VITALS: Ht 177.8 cm; Wt 75.0 kg
--- NOTE | ~2018-01-14 | HEMODYNAMI ---
PATIENT:MARCUS JAMES MEDICAL RECORD: [id number] : 58 LOCATION:[facility] ADMISSION DATE: 01/14/18 Generatedon:01/14/201811:25 Patient name: MARCUS JAMES Patient #: [id number] SSN: DO B: 1960 Date of study: 01/14/2018 Page: Of Hemodynamic Procedure Report Patient Data Patient Demographics Procedure consent was obtained First Name: MARCUS Gender: Male Last Name: ERIKA : 1960 Middle Initial: FRANCISCO J Age: 57 year(s) Patient #: [id number] Race: Unknown Additional ID: [id number] Contact details Address: [address] [place] [address] [facility] State: [place] City: [place] Zip code: [address] Past Medical History Allergies: No known allergies Admission Admission Data Admission Date: 01/14/2018 Admission Time: 7:55 Procedure Procedure Types Cath Procedure Peripheral Cath Diagnostic Procedure Venography IVC/SVC Procedure Description Procedure Date Procedure Date: 01/14/2018 Procedure Start Time: 10:24 Procedure Staff Name Function Marcus Tolbert MD Performing Physician Jad Burgess RT Monitor Melonie Hurd RN Nurse Sid Romero Nurse Afua Burns RT Scrub Procedure Data Cath Procedure Fluoroscopy Diagnostic fluoroscopy Total fluoroscopy Time: time: 13.1 min 13.1 min Diagnostic fluoroscopy Total fluoroscopy dose: 369 dose: 369 mGy mGy Contrast Material Contrast Material Type Amount (ml) Isovue 300 60 Entry Location Entry Primary Successful Side Size Upsize Upsize Entry Closure Succes sful Closure Location (Fr) 1 (Fr) 2 (Fr) Remarks Device Remarks Jugular Right 5 Fr vein Diagnostic catheters Device Type Used For End Catheter Placement Merit ULTRA BOLUS FLUSH 5Fr 90CM catheter ([id number]) Procedure Medications Medication Administration Route Dosage Versed I.V. 1 mg Fentanyl I.V. 50 mcg Versed I.V. 1 mg Fentanyl I.V. 50 mcg Versed I.V. 1 mg Fentanyl I.V. 50 mcg Versed I.V. 1 mg Fentanyl I.V. 50 mcg Hemodynamics Rest Heart Rate: 73 (bpm) Snapshots Pre Cath Intra NCS Post Cath Vital Signs Time Heart Resp SPO2 etCO2 NIBP (mmHg) Rhythm Pain Status Sedation Rate (ipm) (%) (mmHg) Level (bpm) 10:06:00 96 12 100 31.7 153/92(125) NSR 3 (11) , 10(A) Tolerable 10:10:43 64 30 100 29.5 152/83(131) NSR 3 (11) , 10(A) Tolerable 10:14:59 66 54 100 27.9 142/84(115) NSR 4 (11) , 10(A) Distressing 10:19:11 66 11 100 30.2 140/80(111) NSR 3 (11) , 10(A) Tolerable 10:23:21 84 13 97 26.4 133/87(112) NSR 3 (11) , 10(A) Tolerable 10:27:31 68 20 100 27.9 140/82(118) NSR 1 (11) , 8(A) Very mild 10:31:43 72 25 100 24 137/81(109) NSR 0 (11) , No 8(A) pain 10:35:54 87 9 99 23.7 133/81(105) NSR 0 (11) , No 8(A) pain 10:40:02 91 11 98 29.5 134/83(113) NSR 0 (11) , No 8(A) pain 10:44:10 94 18 98 22.6 137/88(108) NSR 0 (11) , No 8(A) pain 10:48:20 92 13 98 23.7 134/85(106) NSR 1 (11) , 8(A) Very mild 10:52:28 92 13 98 22.2 132/88(107) NSR 0 (11) , No 8(A) pain 10:56:36 90 13 98 21.1 132/83(109) NSR 0 (11) , No 8(A) pain 11:00:44 93 12 98 3.7 126/83(104) NSR 0 (11) , No 8(A) pain 11:04:49 94 12 98 6.8 128/85(106) NSR 0 (11) , No 8(A) pain 11:08:53 97 15 97 12.1 125/89(109) NSR 0 (11) , No 8(A) pain 11:12:59 92 20 97 16.6 129/85(109) NSR 0 (11) , No 10(A) pain 11:17:07 98 23 97 5.2 131/81(111) NSR 0 (11) , No 10(A) pain 11:21:17 88 20 97 24.2 128/81(114) NSR 0 (11) , No 10(A) pain Medications Time Medication Route Dose Verified Delivered Reason Notes Effectivene ss by by 10:24:54 Versed I.V. 1 mg Marcus Melonie for Tolbert Vickey RN sedation 10:25:06 Fentanyl I.V. 50 Marcus Melonie for mcg Tolbert Vickey RN sedation 10:27:31 Versed I.V. 1 mg Marcus Melonie for Tolbert Vickey RN sedation 10:27:39 Fentanyl I.V. 50 Marcus Melonie for mcg Tolbert Vickey RN sedation 10:33:31 Versed I.V. 1 mg Marcus Melonie for Tolbert Vickey RN sedation 10:33:44 Fentanyl I.V. 50 Marcus Melonie for mcg Tolbert Vickey RN sedation 10:49:43 Versed I.V. 1 mg Marcus Melonie for Tolbert Vickey RN sedation MD 10:49:53 Fentanyl I.V. 50 Marcus Melonie for mcg Tolbert Vickey RN sedation Procedure Log Time Note 9:50:22 Jad Burgess RT (R) (CV) sent for patient. Start room use. 9:50:35 Time tracking: Regular hours 9:50:45 Plan of Care:Hemodynamics will remain stable., Cardiac rhythm will remain stable., Comfort level will be maintained., Respiratory function will remain adequate., Patient/ family verbilizes understanding of procedure., Procedure tolerated without complication., Recovers from procedure without complications.. 9:50:52 Patient received from Outpatients to IR Alert and oriented. Tansferred to table in Supine position. 9:50:54 Correct patient and procedure confirmed by team. 9:50:55 Signed procedure consent form obtained from patient. 9:50:56 ECG and BP/O2 sat monitors applied to patient. 9:50:58 Full Disclosure recording started 9:50:59 - 9:51:02 H&P Date Dictated: 01/14/2018 H&P Addendum completed by physician on day of procedure. (MUST COMPLETE FOR ALL OUTPATIENTS). 9:51:03 Pre-procedure instructions explained to patient. 9:51:03 Pre-op teaching completed and patient verbalized understanding. 9:51:04 Family in waiting room. 9:51:06 Patient NPO since Midnight. 9:51:17 Patient allergic to No known allergies 9:51:22 Is the patient allergic to Iodine/contrast media? No. 9:51:23 Is patient on blood thinner?No 9:51:32 Patient diabetic? No. 9:51:34 - 9:51:35 ----Pre-sedation anethsthesia assessment.---- 9:51:39 Previous problem with sedation/anesthesia? No ? 9:51:40 Snore? Yes 9:51:42 Sleep apnea? No 9:51:43 Deviated septum? No 9:51:45 Opens mouth fully? Yes 9:52:58 Sticks out tongue? Yes 9:53:01 Airway obstruction? Yes ? 9:53:37 Dentures? No ? 9:53:46 Patient pain scale 0/10 no pain. 9:53:51 Use device set IR Diagnostic 9:53:53 Bag Decanter () opened to sterile field. 9:53:54 Sterile Angiographic Pack opened to sterile field. 10:02:13 IV patent on arrival in right forearm with 0.9% NaCl at [facility]. 10:02:15 Sharps counted by scrub and verified by RMartin 10::16 Alarms reviewed by RBobby N. 10::29 Right neck area was prepped with chlora-prep and draped in sterile fashion 10::36 Vital chart was started 10::37 Baseline sample Acquired. 10::57 Physician arrived 10::58 --------ALL STOP TIME OUT------ 10::59 Final Timeout: patient, procedure, and site verified with staff and physician. All members of the team are in agreement. 10:: Right neck site verified by team. 10::06 Sedation plan: IV Moderate Sedation Medication:Versed, Fentanyl 10:24:45 Procedure started. 10::54 Versed 1 mg I.V. was administered by Melonie Hurd RN; for sedation; 10::56 Local anesthetic to right IJ vein with Lidocaine 1% by Marcus Tolbert MD.INITIAL ACCESS ONLY 10:25:00 A MET Tech ULTRA BOLUS FLUSH 5Fr 90CM catheter ([id number]) was advanced over the wire and used for . 10:25:01 DOC .035 wire (J84986) opened to sterile field. 10:25:02 SHEATH 5FR [place] (FDU144) opened to sterile field. 10:25:06 Fentanyl 50 mcg I.V. was administered by Melonie Hurd RN; for sedation ; 10:27:31 Versed 1 mg I.V. was administered by Melonie Hurd RN; for sedation; 10:27:39 Fentanyl 50 mcg I.V. was administered by Melonie Hurd RN; for sedation ; 10:28:22 A 5 Fr sheath was inserted into the Right Jugular vein 10:33:31 Versed 1 mg I.V. was administered by Melonie Hurd RN; for sedation; 10:33:44 Fentanyl 50 mcg I.V. was administered by Melonie Hurd RN; for sedation ; 10:40:43 GLIDE CATHETER 4FR Straight 65cm (CG412) opened to sterile field. 10:41:59 ROADRUNNER .035 145 glide wire (A80241) opened to sterile field. 10:49:43 Versed 1 mg I.V. was administered by Melonie Hurd RN; for sedation; 10:49:53 Fentanyl 50 mcg I.V. was administered by Melonie Hurd RN; for sedation ; 11:01:05 ACIST Syringe (69397) opened to sterile field. 11:01:05 ACIST Hand Control (85757) opened to sterile field. 11:01:06 ACIST Manifold (46935) opened to sterile field. 11:01:06 TUBING Contrast Injection High Pressure (DLV282D) opened to sterile field. 11:01:07 TUBING Contrast Injection High Pressure (BUG943T) opened to sterile field. 11:09:37 Procedure ended.(Physican Out) 11:10:22 Fluoroscopy time 13.10 minutes. 11:10:28 Fluoroscopy dose: 369 mGy 11:10:28 Flurop Dose total: 369 11:11:42 Contrast amount:Isovue 300 60ml. 11:11:43 Sharps counted by scrub and verified by R.N. 11:11:46 Insertion/operative site no bleeding no hematoma. 11:11:51 Post right IJ vein:stable 11:12:04 Post-op/insertion site Right Jugular vein dressed using a 4 x 4 and Tegaderm. 11:12:06 Procedure and supply charges have been captured, reviewed, submitted an d are correct. 11:12:08 Post procedure instruction explained to patient.Patient verbalizes understanding. 11:24:39 Report given to Outpatients. 11:24:44 Patient transfered to Outpatients with Bed. 11:25:10 Vital chart was stopped Device Usage Item Name Manufacture Quantity Catalog Number Hospital Part [facility] Lot# / Charge Number Stock Stock Serial# Code Bag Decanter Microtek 1 [id number] 17431 335169 5 () Medical Inc. Sterile Cardinal 1 [id number] 784843 941166 5 Angiographic Health Pack Merit ULTRA Merit 1 [id number] 349498 763203 5 BOLUS FLUSH Medical 5Fr 90CM catheter ([id number]) DOC .035 wire Cook Medical 1 [id number] 483757 586995 5 7864873 (V03418) SHEATH 5FR Terumo 1 GKA370 061254 355183 380841 40 [place] (YCP042) GLIDE CATHETER Terumo 1 CG412 071042 449959 5 4FR Straight 65cm (CG412) ROADRUNNER Cook Medical 1 M12447 269805 736150 228454 5 8447519 .035 145 glide wire (P20053) ACIST Syringe Acist 1 37846 221765 829287 898772 20 (59205) Medical Systems Inc ACIST Hand Acist 1 75005 613522 651070 684919 5 Control Medical (58237) Systems Inc ACIST Manifold Acist 1 54105 292529 792123 002244 5 (73446) Medical Systems Inc TUBING Merit 2 JUR083N 477689 515046 693985 5 Contrast Medical Injection High Pressure (SKG383J) Signature Audit [place] Stage Time Signature Unsigned Intra-Procedure 01/14/2018 Jad 11:25:05 AM Jenifer RT (R) (CV) Signatures Monitor : Jad Signature : Jenifer RT Date : Time : [address] [address]
[2018-01-14 08:43] LABS: BASOPHILS 0.7 % (0-2); EOSINOPHILS 1.7 % (0-7); HEMATOCRIT 32.2 % (42.0-54.0); IMMATURE GRANULOCYTES 0.2 % (0-5); LYMPHOCYTES 17.1 % (15-50); MCH 29.4 pg (26.0-34.0); MCHC 31.1 g/dL (31.0-37.0); MCV 94.7 fL (80.0-100.0); MEAN PLATELET VOLUME 8.2 fL (7.4-10.4); MONOCYTES 6.4 % (2-11); NEUTROPHILS 73.9 % (40-80); PLATELET COUNT 267 10x3/uL (130-400); RDW 14.6 % (11.5-14.5)
[2018-01-14 08:51] LABS: CALC OSMOLALITY 281 mosm/kg (275-300); CALCIUM 9.3 mg/dL (8.5-10.1); CARBON DIOXIDE 28.5 mmol/L (21.0-32.0); CHLORIDE - SERUM 105 mmol/L (98-107); CREATININE - SERUM 0.5 mg/dL (0.6-1.3); GLUCOSE 82 mg/dL (74-106); SODIUM 142 mmol/L (136-145); UREA NITROGEN 12 mg/dL (7-18); eGFR NON AFRICAN AMERICAN > 90 mL/min (90-120)
[2018-01-14 08:58] LABS: APTT 25.2 SECONDS (22.8-39.4); INR 1.07 (0.85-1.17); PROTIME 13.5 SECONDS (11.6-15.0)
[2018-01-14 08:59] VITALS: Ht 177.8 cm; Wt 75.0 kg
== END 2018-01-14 18:00 | disposition home or self-care (01) ==
LOC: D.OPS 07:55 → D.SP 10:00 → D.OPS 18:00
PROVIDERS: Specialist
DX: I82.220 Acute embolism and thrombosis of inferior vena cava (principal); I10 Essential (primary) hypertension; Z01.812 Encounter for preprocedural laboratory examination

== ENCOUNTER 2018-11-10 09:44 | Inpatient (IN) | payer MEDICARE, BC ==
[~2018-11-10] VITALS: Ht 177.8 cm; Wt 70.3 kg
[2018-11-10] MEDS ORDERED: NORCO 10-325 TA1 TAB PO (09:58)
[2018-11-10] MEDS ORDERED: ELIQUIS5 MG PO (10:45)
[2018-11-10 11:00] LABS: BASOPHILS 0.4 % (0-2); EOSINOPHILS 1.1 % (0-7); HEMATOCRIT 28.8 % (42.0-54.0); HEMOGLOBIN 9.5 g/dL (13.5-17.5); IMMATURE GRANULOCYTES 0.1 % (0-5); LYMPHOCYTES 11.3 % (15-50); MCH 33.5 pg (26.0-34.0); MCV 101.4 fL (80.0-100.0); MEAN PLATELET VOLUME 8.5 fL (7.4-10.4); MONOCYTES 8.7 % (2-11); NEUTROPHILS 78.4 % (40-80); RBC 2.84 10x6/uL (4.20-6.10); RDW 12.8 % (11.5-14.5); WBC 8.6 10x3/uL (4.8-10.8)
[2018-11-10 11:07] LABS: PLATELET COUNT 322 10x3/uL (130-400)
[2018-11-10 11:10] LABS: INR 1.48 (0.85-1.17); PROTIME 17.4 SECONDS (11.6-15.0)
[2018-11-10 11:16] LABS: ALKALINE PHOSPHATASE 122 U/L (46-116); ALT (SGPT) 15 U/L (10-68); BILIRUBIN - TOTAL 0.51 mg/dL (0.2-1.3); CALC OSMOLALITY 266 mosm/kg (275-300); CALCIUM 8.5 mg/dL (8.5-10.1); CARBON DIOXIDE 22.5 mmol/L (21.0-32.0); CHLORIDE - SERUM 99 mmol/L (98-107); CREATININE - SERUM 0.7 mg/dL (0.6-1.3); GLUCOSE 95 mg/dL (74-106); POTASSIUM - SERUM 3.9 mmol/L (3.5-5.1); PROTEIN - SERUM 6.9 g/dL (6.4-8.2); SODIUM 133 mmol/L (136-145); UREA NITROGEN 14 mg/dL (7-18); eGFR NON AFRICAN AMERICAN > 90 mL/min (90-120)
[2018-11-10 11:42] LABS: C-REACTIVE PROTEIN 6.6 mg/dL (0.0-0.9); CKMB 1.3 U/L (0.0-3.6); CREATINE KINASE 97 UL (21-232); PRO BNP 302 pg/mL (0-125)
[2018-11-10 18:18] LABS: HEMATOCRIT 30.7 % (42.0-54.0); HEMOGLOBIN 10.1 g/dL (13.5-17.5)
[2018-11-10 18:55] VITALS: BP 99/63
[2018-11-10 21:55] VITALS: BP 81/61
[2018-11-11] VITALS (7 sets, daily range): BP systolic 103–120; BP diastolic 60–74; Ht 177.8 cm; Wt 70.3 kg
[2018-11-11 07:09] LABS: CALC OSMOLALITY 265 mosm/kg (275-300); CALCIUM 7.4 mg/dL (8.5-10.1); CHLORIDE - SERUM 104 mmol/L (98-107); CREATININE - SERUM 0.6 mg/dL (0.6-1.3); GLUCOSE 113 mg/dL (74-106); SODIUM 132 mmol/L (136-145); UREA NITROGEN 12 mg/dL (7-18); eGFR NON AFRICAN AMERICAN > 90 mL/min (90-120)
[2018-11-11 08:01] LABS: BASOPHILS 0.2 % (0-2); EOSINOPHILS 0.9 % (0-7); HEMATOCRIT 25.2 % (42.0-54.0); HEMOGLOBIN 8.4 g/dL (13.5-17.5); IMMATURE GRANULOCYTES 0.6 % (0-5); LYMPHOCYTES 11.7 % (15-50); MCH 32.3 pg (26.0-34.0); MCHC 33.3 g/dL (31.0-37.0); MEAN PLATELET VOLUME 8.6 fL (7.4-10.4); MONOCYTES 12.2 % (2-11); NEUTROPHILS 74.4 % (40-80); RDW 17.6 % (11.5-14.5); WBC 8.5 10x3/uL (4.8-10.8)
[2018-11-11 08:22] LABS: MCV 96.9 fL (80.0-100.0); PLATELET COUNT 226 10x3/uL (130-400)
--- NOTE | 2018-11-11 15:45 | MORECARE ---
CASE MANAGEMENT DISCHARGE SUMMARY PATIENT: SRIKANTH JAMES UNIT: [id number] ADM DATE: 11/10/18 AGE: 58 : 58 SEX: M ROOM/BED: D.2236 AUTHOR: NHAN,DOC PHYSICIAN: REFERRING PHYSICIAN: SCOT JAIN MD DATE OF SERVICE: 11/11/18 Discharge Plan Patient Name: SRIKANTH JAMES Facility: [facility]:[place] : 1960 Planned Disposition: Longterm Facility Anticipated Discharge Date: Discharge Date: Expected LOS: Initial Reviewer: [email or web address] Initial Review Date: 11/11/2018 Generated: 11/11/18 4:45 pm Comments DCP- Discharge Planning Updated by [email or web address]: Joelle Gabriel on 11/11/18 2:[address] Patient Name: SRIKANTH JAMES Admission Status: ER Accout number: [id number] Admission Date: 11-10-2018 : 1960 Admission Diagnosis: Attending: SCOT JAIN Current LOS: 1 Anticipated DC Date: Planned Disposition: Longterm Facility Primary Insurance: MEDICARE A & B Discharge Planning Comments: CM met with patient to discuss discharge planning, he is alone in the room. States he lives alone in a one story home. States he has [facility] come 3 times a week for nursing care. States [place] [place] home care comes in and takes him to his appointments. States he is able to transfer himself using a slide board. I discussed SNF with him until he is healed from fracture and he agrees. States he is unsure which SNF to go to but thinks it is [facility] and will check with his friend when he comes tonight. He asks me to check back with him in the morning before signing a MICHAELA form. CM will continue to follow and assist with discharge planning/needs. Security Escort: Joelle Gabriel DCPIA - Discharge Planning Initial Assessment Updated by [email or web address]: Joelle Gabriel on 11/11/18 3:39 pm * Is the patient Alert and Oriented? Yes * How many steps to enter\exit or inside your home? Ramp/0 * PCP Dr. Jain * Pharmacy [facility] on [address] * Preadmission Environment Home Alone * ADLs Partial Dependent * Partial ADLs (Assistance needed) Ambulation Bathing * Equipment Other Wheelchair * Other Equipment Slide Board Motorized wheelchair * List name and contact numbers for known caregivers / representatives who currently or will assist patient after discharge: Steven Espinoza [phone] * Verbal permission to speak to the caregivers and representatives has been obtained from the patient. Yes * Community resources currently utilized Home Health Private Duty Care * Please name any agencies selected above. [facility] for personal care * Additional services required to return to the preadmission environment? Yes * Can the patient safely return to the preadmission environment? No * Has this patient been hospitalized within the prior 30 days at any hospital? No Patient Name: SRIKANTH JAMES Page [id number] at 1545 All edits/amendments must be made on the electronic document DICTATION DATE: 11/11/18 1544 [place] AUDITOR: JARRED 11/11/18 1544 RPT#: [id number] ND DATE: STATUS: ADM IN [facility] [address] [place] [address] END OF REPORT
[2018-11-12] VITALS (10 sets, daily range): BP systolic 101–138; BP diastolic 58–79
[2018-11-12 07:54] LABS: CALC OSMOLALITY 278 mosm/kg (275-300); CALCIUM 7.8 mg/dL (8.5-10.1); CARBON DIOXIDE 25.3 mmol/L (21.0-32.0); CHLORIDE - SERUM 107 mmol/L (98-107); CREATININE - SERUM 0.6 mg/dL (0.6-1.3); GLUCOSE 94 mg/dL (74-106); SODIUM 141 mmol/L (136-145); eGFR NON AFRICAN AMERICAN > 90 mL/min (90-120)
[2018-11-12 07:56] LABS: UREA NITROGEN 8 mg/dL (7-18)
[2018-11-12 08:48] LABS: BASOPHILS 0.3 % (0-2); EOSINOPHILS 2.7 % (0-7); HEMATOCRIT 21.9 % (42.0-54.0); IMMATURE GRANULOCYTES 0.4 % (0-5); LYMPHOCYTES 9.8 % (15-50); MCH 32.1 pg (26.0-34.0); MCHC 32.4 g/dL (31.0-37.0); MEAN PLATELET VOLUME 8.7 fL (7.4-10.4); MONOCYTES 13.4 % (2-11); NEUTROPHILS 73.4 % (40-80); PLATELET COUNT 208 10x3/uL (130-400); RBC 2.21 10x6/uL (4.20-6.10); RDW 16.5 % (11.5-14.5); WBC 6.9 10x3/uL (4.8-10.8)
[2018-11-12 08:49] LABS: MCV 99.1 fL (80.0-100.0)
[2018-11-12 08:51] LABS: HEMOGLOBIN 7.1 g/dL (13.5-17.5)
--- NOTE | 2018-11-12 10:17 | MORECARE ---
CASE MANAGEMENT DISCHARGE SUMMARY PATIENT: SRIKANTH JAMES UNIT: [id number] ADM DATE: 11/10/18 AGE: 58 : 58 SEX: M ROOM/BED: D.2236 AUTHOR: NHAN,DOC PHYSICIAN: REFERRING PHYSICIAN: SCOT JAIN MD DATE OF SERVICE: 11/12/18 Discharge Plan Patient Name: SRIKANTH JAMES Facility: [facility]:[place] : 1960 Planned Disposition: Nursing Home Facility Anticipated Discharge Date: Discharge Date: Expected LOS: Initial Reviewer: [email or web address] Initial Review Date: 11/11/2018 Generated: 11/12/18 11:17 am Comments DCP- Discharge Planning Updated by [email or web address]: Joelle Gabriel on 11/12/18 9:[address] Met with patient, he is unsure if he wants to go home with home health or to a skilled facility. He states he will discuss with friend coming here in an hour and let me know. CM will continue to follow and assist with discharge planning/needs. DCP- Discharge Planning Updated by [email or web address]: Joelle Gabriel on 11/11/18 2:[address] Patient Name: SRIKANTH JAMES Admission Status: ER Accout number: [id number] Admission Date: 11-10-2018 : 1960 Admission Diagnosis: Attending: SCOT JAIN Current LOS: 1 Anticipated DC Date: Planned Disposition: Nursing Home Facility Primary Insurance: MEDICARE A & B Discharge Planning Comments: CM met with patient to discuss discharge planning, he is alone in the room. States he lives alone in a one story home. States he has [facility] come 3 times a week for nursing care. States [place] home care comes in and takes him to his appointments. States he is able to transfer himself using a slide board. I discussed SNF with him until he is healed from fracture and he agrees. States he is unsure which SNF to go to but thinks it is [facility] and will check with his friend when he comes tonight. He asks me to check back with him in the morning before signing a MICHAELA form. CM will continue to follow and assist with discharge planning/needs. Etymology Teacher: Joelle Gabriel DCPIA - Discharge Planning Initial Assessment Updated by [email or web address]: Joelle Calledanie on 11/11/18 3:39 pm * Is the patient Alert and Oriented? Yes * How many steps to enter\exit or inside your home? Ramp/0 * PCP Dr. Jain * Pharmacy [facility] on [address] * Preadmission Environment Home Alone * ADLs Partial Dependent * Partial ADLs (Assistance needed) Ambulation Bathing * Equipment Other Wheelchair * Other Equipment Slide Board Motorized wheelchair * List name and contact numbers for known caregivers / representatives who currently or will assist patient after discharge: Steven Espinoza [phone] * Verbal permission to speak to the caregivers and representatives has been obtained from the patient. Yes * Community resources currently utilized Home Health Private Duty Care * Please name any agencies selected above. [facility] care for personal care * Additional services required to return to the preadmission environment? Yes * Can the patient safely return to the preadmission environment? No * Has this patient been hospitalized within the prior 30 days at any hospital? No Last DP export: 11/11/18 2:45 pm Patient Name: SRIKANTH JAMES Page [id number] at 1017 All edits/amendments must be made on the electronic document DICTATION DATE: 11/12/18 1017 ROBOTICS SYSTEMS ENGINEER: JARRED 11/12/18 1017 RPT#: [id number] DC DATE: STATUS: ADM IN [facility] [address] [place] [address] END OF REPORT
--- NOTE | 2018-11-12 11:29 | MORECARE ---
CASE MANAGEMENT DISCHARGE SUMMARY PATIENT: SRIKANTH JAMES UNIT: [id number] ADM DATE: 11/10/18 AGE: 58 : 58 SEX: M ROOM/BED: D.2236 AUTHOR: NHAN,DOC PHYSICIAN: REFERRING PHYSICIAN: SCOT JAIN MD DATE OF SERVICE: 11/12/18 Discharge Plan Patient Name: SRIKANTH JAMES Facility: [facility]:[place] : 1960 Planned Disposition: Jail Facility Anticipated Discharge Date: Discharge Date: Expected LOS: Initial Reviewer: [email or web address] Initial Review Date: 11/11/2018 Generated: 11/12/18 12:29 pm Comments DCP- Discharge Planning Updated by [email or web address]: Joelle Gabriel on 11/12/18 9:[address] Met with patient, he is unsure if he wants to go home with home health or to a skilled facility. He states he will discuss with friend coming here in an hour and let me know. CM will continue to follow and assist with discharge planning/needs. DCP- Discharge Planning Updated by [email or web address]: Joelle Gabriel on 11/11/18 2:[address] Patient Name: SRIKANTH JAMES Admission Status: ER Accout number: [id number] Admission Date: 11-10-2018 : 1960 Admission Diagnosis: Attending: SCOT JAIN Current LOS: 1 Anticipated DC Date: Planned Disposition: Jail Facility Primary Insurance: MEDICARE A & B Discharge Planning Comments: CM met with patient to discuss discharge planning, he is alone in the room. States he lives alone in a one story home. States he has [facility] come 3 times a week for nursing care. States [facility] comes in and takes him to his appointments. States he is able to transfer himself using a slide board. I discussed SNF with him until he is healed from fracture and he agrees. States he is unsure which SNF to go to but thinks it is [facility] and will check with his friend when he comes tonight. He asks me to check back with him in the morning before signing a MICHAELA form. CM will continue to follow and assist with discharge planning/needs. Behavioral Health Therapist: Joelle Gabriel DCPIA - Discharge Planning Initial Assessment Updated by [email or web address]: Joelle Nery on 11/11/18 3:39 pm * Is the patient Alert and Oriented? Yes * How many steps to enter\exit or inside your home? Ramp/0 * PCP Dr. Jain * Pharmacy [facility] on [address] * Preadmission Environment Home Alone * ADLs Partial Dependent * Partial ADLs (Assistance needed) Ambulation Bathing * Equipment Other Wheelchair * Other Equipment Slide Board Motorized wheelchair * List name and contact numbers for known caregivers / representatives who currently or will assist patient after discharge: Steven Espinoza [phone] * Verbal permission to speak to the caregivers and representatives has been obtained from the patient. Yes * Community resources currently utilized Home Health Private Duty Care * Please name any agencies selected above. [facility] care for personal care * Additional services required to return to the preadmission environment? Yes * Can the patient safely return to the preadmission environment? No * Has this patient been hospitalized within the prior 30 days at any hospital? No Last DP export: 11/12/18 9:17 am Patient Name: SRIKANTH JAMES Page 28153 at 1129 All edits/amendments must be made on the electronic document DICTATION DATE: 11/12/181128 ASSISTANT HEALTH EDUCATOR: JARRED 11/12/181128 RPT#: [id number] DC DATE: STATUS: ADM IN [facility] [address] [place] [address] END OF REPORT
--- NOTE | 2018-11-12 11:37 | MORECARE ---
CASE MANAGEMENT DISCHARGE SUMMARY PATIENT: SRIKANTH JAMES UNIT: [id number] ADM DATE: 11/10/18 AGE: 58 : 58 SEX: M ROOM/BED: D.2236 AUTHOR: BRENDEN JUSTIN PHYSICIAN: REFERRING PHYSICIAN: SCOT JAIN MD DATE OF SERVICE: 11/12/18 Discharge Plan Patient Name: SRIKANTH JAMES Facility: [facility]:[place] : 1960 Planned Disposition: Longterm Facility Anticipated Discharge Date: Discharge Date: Expected LOS: Initial Reviewer: [email or web address] Initial Review Date: 11/11/2018 Generated: 11/12/18 12:36 pm Comments DCP- Discharge Planning Updated by [id number]: Joelle Gabriel on 11/12/18 10:[address] Spoke with patient and his medical POA (Steven Gutierrez) about discharge plan. He wants to go home and continue HHS with [facility]. He states that usually [facility] will take him home. I called [facility] ([phone]) and spoke to Jessica states to call their number tomorrow and they will have answering service take care of it. She states she will call patient and explain and also will start working on his transportation needs today. I called [facility] and spoke with Jessica to resume HHS on discharge tomorrow, clinical faxed. Will need to fax discharge orders. CM will continue to follow and assist with discharge planning/needs. DCP- Discharge Planning Updated by [email or web address]: Joelle Gabriel on 11/12/18 9:[address] Met with patient, he is unsure if he wants to go home with home health or to a skilled facility. He states he will discuss with friend coming here in an hour and let me know. CM will continue to follow and assist with discharge planning/needs. DCP- Discharge Planning Updated by [email or web address]: Joelle Gabriel on 11/11/18 2:[address] Patient Name: SRIKANTH JAMES Admission Status: ER Accout number: [id number] Admission Date: 11-10-2018 : 1960 Admission Diagnosis: Attending: SCOT JAIN Current LOS: 1 Anticipated DC Date: Planned Disposition: Longterm Facility Primary Insurance: MEDICARE A & B Discharge Planning Comments: CM met with patient to discuss discharge planning, he is alone in the room. States he lives alone in a one story home. [facility] he has [facility] come 3 times a week for nursing care. [facility] home care comes in and takes him to his appointments. States he is able to transfer himself using a slide board. I discussed SNF with him until he is healed from fracture and he agrees. States he is unsure which SNF to go to but thinks it is [facility] and will check with his friend when he comes tonight. He asks me to check back with him in the morning before signing a MICHAELA form. CM will continue to follow and assist with discharge planning/needs. Retirement Assistant: Joelle Gabriel DCPIA - Discharge Planning Initial Assessment Updated by [email or web address]: Joelle Gabriel on 11/11/18 3:39 pm * Is the patient Alert and Oriented? Yes * How many steps to enter\exit or inside your home? Ramp/0 * PCP Dr. Jain * Pharmacy [facility] on [facility] * Preadmission Environment Home Alone * ADLs Partial Dependent * Partial ADLs (Assistance needed) Ambulation Bathing * Equipment Other Wheelchair * Other Equipment Slide Board Motorized wheelchair * List name and contact numbers for known caregivers / representatives who currently or will assist patient after discharge: Steven Espinoza - [phone] * Verbal permission to speak to the caregivers and representatives has been obtained from the patient. Yes * Community resources currently utilized Home Health Private Duty Care * Please name any agencies selected above. [facility] for personal care * Additional services required to return to the preadmission environment? Yes * Can the patient safely return to the preadmission environment? No * Has this patient been hospitalized within the prior 30 days at any hospital? No Last DP export: 11/12/18 10:29 am Patient Name: SRIKANTH JAMES Page [id number] at 1137 All edits/amendments must be made on the electronic document DICTATION DATE: 11/12/18 1136 MOLD FILLING OPERATOR: JARRED 11/12/18 1136 RPT#: [id number] DC DATE: STATUS: ADM IN [facility] [address] [place] [address] END OF REPORT
--- NOTE | 2018-11-12 11:44 | MORECARE ---
CASE MANAGEMENT DISCHARGE SUMMARY PATIENT: SRIKANTH JAMES UNIT: [id number] ADM DATE: 11/10/18 AGE: 58 : 58 SEX: M ROOM/BED: D.2236 AUTHOR: BRENDEN JUSTIN PHYSICIAN: REFERRING PHYSICIAN: SCOT JAIN MD DATE OF SERVICE: 11/12/18 Discharge Plan Patient Name: SRIKANTH JAMES Facility: [facility]:[place] : 1960 Planned Disposition: Group Home Facility Anticipated Discharge Date: Discharge Date: Expected LOS: Initial Reviewer: [id number] Initial Review Date: 11/11/2018 Generated: 11/12/18 12:44 pm Comments DCP- Discharge Planning Updated by [id number]: Joelle Gabriel on 11/12/18 10:[address] Spoke with patient and his medical POA (Steven Gutierrez) about discharge plan. He wants to go home and continue HHS with [facility]. He states that usually [facility] will take him home. I called [facility] ([phone]) and spoke to Jessica states to call their number tomorrow and they will have answering service take care of it. She states she will call patient and explain and also will start working on his transportation needs today. I called [facility] and spoke with Jessica to resume HHS on discharge tomorrow, clinical faxed. Will need to fax discharge orders. CM will continue to follow and assist with discharge planning/needs. DCP- Discharge Planning Updated by [email or web address]: Joelle Gabriel on 11/12/18 9:[address] Met with patient, he is unsure if he wants to go home with home health or to a skilled facility. He states he will discuss with friend coming here in an hour and let me know. CM will continue to follow and assist with discharge planning/needs. DCP- Discharge Planning Updated by [email or web address]: Joelle Gabriel on 11/11/18 2:[address] Patient Name: SRIKANTH JAMES Admission Status: ER Accout number: [id number] Admission Date: 11-10-2018 : 1960 Admission Diagnosis: Attending: SCOT JAIN Current LOS: 1 Anticipated DC Date: Planned Disposition: Group Home Facility Primary Insurance: MEDICARE A & B Discharge Planning Comments: CM met with patient to discuss discharge planning, he is alone in the room. States he lives alone in a one story home. [facility] he has [facility] come 3 times a week for nursing care. [facility] care comes in and takes him to his appointments. States he is able to transfer himself using a slide board. I discussed SNF with him until he is healed from fracture and he agrees. States he is unsure which SNF to go to but thinks it is [facility] and will check with his friend when he comes tonight. He asks me to check back with him in the morning before signing a MICHAELA form. CM will continue to follow and assist with discharge planning/needs. Breaking Machine Operator: Joelle Gabriel DCPIA - Discharge Planning Initial Assessment Updated by [email or web address]: Joelle Gabriel on 11/11/18 3:39 pm * Is the patient Alert and Oriented? Yes * How many steps to enter\exit or inside your home? Ramp/0 * PCP Dr. Jain * Pharmacy [facility] on [facility] * Preadmission Environment Home Alone * ADLs Partial Dependent * Partial ADLs (Assistance needed) Ambulation Bathing * Equipment Other Wheelchair * Other Equipment Slide Board Motorized wheelchair * List name and contact numbers for known caregivers / representatives who currently or will assist patient after discharge: Steven Espinoza - [phone] * Verbal permission to speak to the caregivers and representatives has been obtained from the patient. Yes * Community resources currently utilized Home Health Private Duty Care * Please name any agencies selected above. [facility] for personal care * Additional services required to return to the preadmission environment? Yes * Can the patient safely return to the preadmission environment? No * Has this patient been hospitalized within the prior 30 days at any hospital? No External Providers External Provider: [facility] Next Contact Date: Service Request Date: Service Type: Resolution: Reviewer: Comments: Last DP export: 11/12/18 10:36 am Patient Name: SRIKANTH JAMES Page [id number] at 1144 All edits/amendments must be made on the electronic document DICTATION DATE: 11/12/18 1144 ADVERTISING ANALYST: JARRED 11/12/18 1144 RPT#: [id number] DC DATE: STATUS: ADM IN [facility] [address] [place] [address] END OF REPORT
[2018-11-13 00:30] VITALS: BP 119/67
[2018-11-13 04:58] VITALS: BP 124/61
[2018-11-13 07:31] LABS: BASOPHILS 0.3 % (0-2); EOSINOPHILS 4.8 % (0-7); IMMATURE GRANULOCYTES 1.1 % (0-5); LYMPHOCYTES 9.2 % (15-50); MCH 31.4 pg (26.0-34.0); MCHC 33.3 g/dL (31.0-37.0); MEAN PLATELET VOLUME 8.6 fL (7.4-10.4); MONOCYTES 13.5 % (2-11); NEUTROPHILS 71.1 % (40-80); PLATELET COUNT 226 10x3/uL (130-400); RDW 17.6 % (11.5-14.5); WBC 7.3 10x3/uL (4.8-10.8)
[2018-11-13 07:33] LABS: HEMATOCRIT 28.8 % (42.0-54.0); HEMOGLOBIN 9.6 g/dL (13.5-17.5); MCV 94.1 fL (80.0-100.0); RBC 3.06 10x6/uL (4.20-6.10)
[2018-11-13 07:44] LABS: CALC OSMOLALITY 273 mosm/kg (275-300); CARBON DIOXIDE 25.1 mmol/L (21.0-32.0); CHLORIDE - SERUM 104 mmol/L (98-107); CREATININE - SERUM 0.6 mg/dL (0.6-1.3); GLUCOSE 93 mg/dL (74-106); SODIUM 138 mmol/L (136-145); UREA NITROGEN 6 mg/dL (7-18); eGFR NON AFRICAN AMERICAN > 90 mL/min (90-120)
[2018-11-13 08:34] VITALS: BP 131/83
[2018-11-13 15:28] VITALS: BP 126/82
[2018-11-13 21:45] VITALS: BP 128/76
[2018-11-14 06:41] LABS: BASOPHILS 0.5 % (0-2); EOSINOPHILS 6.3 % (0-7); HEMATOCRIT 27.5 % (42.0-54.0); HEMOGLOBIN 9.1 g/dL (13.5-17.5); IMMATURE GRANULOCYTES 0.5 % (0-5); LYMPHOCYTES 14.2 % (15-50); MCH 31.6 pg (26.0-34.0); MCHC 33.1 g/dL (31.0-37.0); MCV 95.5 fL (80.0-100.0); MEAN PLATELET VOLUME 8.4 fL (7.4-10.4); MONOCYTES 15.5 % (2-11); PLATELET COUNT 243 10x3/uL (130-400); RBC 2.88 10x6/uL (4.20-6.10); RDW 16.3 % (11.5-14.5); WBC 6.1 10x3/uL (4.8-10.8)
[2018-11-14 07:02] LABS: CALC OSMOLALITY 273 mosm/kg (275-300); CALCIUM 7.8 mg/dL (8.5-10.1); CARBON DIOXIDE 25.1 mmol/L (21.0-32.0); CHLORIDE - SERUM 105 mmol/L (98-107); CREATININE - SERUM 0.5 mg/dL (0.6-1.3); GLUCOSE 99 mg/dL (74-106); POTASSIUM - SERUM 3.7 mmol/L (3.5-5.1); SODIUM 138 mmol/L (136-145); UREA NITROGEN 6 mg/dL (7-18); eGFR NON AFRICAN AMERICAN > 90 mL/min (90-120)
[2018-11-14 09:08] VITALS: BP 122/85
[2018-11-14 16:00] VITALS: BP 118/85
--- NOTE | 2018-11-14 17:43 | MORECARE ---
CASE MANAGEMENT DISCHARGE SUMMARY PATIENT: SRIKANTH JAMES UNIT: [id number] ADM DATE: 11/10/18 AGE: 58 : 58 SEX: M ROOM/BED: D.2236 AUTHOR: NHAN,DOC PHYSICIAN: REFERRING PHYSICIAN: SCOT JAIN MD DATE OF SERVICE: 11/14/18 Discharge Plan Patient Name: SRIKANTH JAMES Facility: [facility]:[place] : 1960 Planned Disposition: Snf Facility Anticipated Discharge Date: Discharge Date: Expected LOS: Initial Reviewer: [email or web address] Initial Review Date: 11/11/2018 Generated: 11/14/18 6:42 pm Comments DCP- Discharge Planning Updated by [email or web address]: Nancy Montemayor on 11/14/18 4:[address] LATE ENTRY CM SPOKE WITH THE PATIENT AT HIS REQUEST THIS EARLY PM. HE ASK THAT I CALL MR STEVEN MAYBERRY, HIS POA. THE PATIENT W[facility] [address] [facility]. CM CALLED MR MAYBERRY. HE STATED HE UNDERSTOOD THE DOCTOR FELT THAT WAS A BETTER PLAN. WILL FORWARD REFERRAL TO [place] FOR REVIEW IN THE AM. [facility] WOULD BE HIS NEXT CHOICE IF [facility] CANNOT ACCEPT. PATIENT LIVES CLOSE TO [facility]. DCP- Discharge Planning Updated by [id number]: Joelle Gabriel on 11/12/18 10:[address] Spoke with patient and his medical POA (Steven Mayberry) about discharge plan. He wants to go home and continue HHS with [facility]. He states that usually [facility] will take him home. I called [facility] ([phone]) and spoke to Jessica states to call their number tomorrow and they will have answering service take care of it. She states she will call patient and explain and also will start working on his transportation needs today. I called [facility] and spoke with Jessica to resume HHS on discharge tomorrow, clinical faxed. Will need to fax discharge orders. CM will continue to follow and assist with discharge planning/needs. DCP- Discharge Planning Updated by [email or web address]: Joelle Gabriel on 11/12/18 9:[address] Met with patient, he is unsure if he wants to go home with home health or to a skilled facility. He states he will discuss with friend coming here in an hour and let me know. CM will continue to follow and assist with discharge planning/needs. DCP- Discharge Planning Updated by [email or web address]: Joelle Calledanie on 11/11/18 2:[address] Patient Name: SRIKANTH JAMES Admission Status: ER Accout number: [id number] Admission Date: 11-10-2018 : 1960 Admission Diagnosis: Attending: SCOT JAIN Current LOS: 1 Anticipated DC Date: Planned Disposition: Snf Facility Primary Insurance: MEDICARE A & B Discharge Planning Comments: CM met with patient to discuss discharge planning, he is alone in the room. States he lives alone in a one story home. States he has [facility] come 3 times a week for nursing care. [facility] home care comes in and takes him to his appointments. States he is able to transfer himself using a slide board. I discussed SNF with him until he is healed from fracture and he agrees. States he is unsure which SNF to go to but thinks it is [facility] and will check with his friend when he comes tonight. He asks me to check back with him in the morning before signing a MICHAELA form. CM will continue to follow and assist with discharge planning/needs. Iuss Analyst: Joelle Calledanie DCPIA - Discharge Planning Initial Assessment Updated by [email or web address]: Joelle Gabriel on 11/11/18 3:39 pm * Is the patient Alert and Oriented? Yes * How many steps to enter\exit or inside your home? Ramp/0 * PCP Dr. Jain * Pharmacy [facility] on [facility] * Preadmission Environment Home Alone * ADLs Partial Dependent * Partial ADLs (Assistance needed) Ambulation Bathing * Equipment Other Wheelchair * Other Equipment Slide Board Motorized wheelchair * List name and contact numbers for known caregivers / representatives who currently or will assist patient after discharge: Steven Espinoza - [phone] * Verbal permission to speak to the caregivers and representatives has been obtained from the patient. Yes * Community resources currently utilized Home Health Private Duty Care * Please name any agencies selected above. [facility] care for personal care * Additional services required to return to the preadmission environment? Yes * Can the patient safely return to the preadmission environment? No * Has this patient been hospitalized within the prior 30 days at any hospital? No Last DP export: 11/12/18 10:44 am Patient Name: SRIKANTH JAMES Page [id number] at 1743 All edits/amendments must be made on the electronic document DICTATION DATE: 11/14/181741 RUBBER TESTER: JARRED 11/14/181741 RPT#: [id number] DC DATE: STATUS: ADM IN [facility] [address] [place] [address] END OF REPORT
--- NOTE | 2018-11-14 18:21 | MORECARE ---
CASE MANAGEMENT DISCHARGE SUMMARY PATIENT: SRIKANTH JAMES UNIT: [id number] ADM DATE: 11/10/18 AGE: 58 : 58 SEX: M ROOM/BED: D.2236 AUTHOR: NHAN,DOC PHYSICIAN: REFERRING PHYSICIAN: SCOT JAIN MD DATE OF SERVICE: 11/14/18 Discharge Plan Patient Name: SRIKANTH JAMES Facility: [facility]:[place] : 1960 Planned Disposition: Correction Facility Anticipated Discharge Date: Discharge Date: Expected LOS: Initial Reviewer: [email or web address] Initial Review Date: 11/11/2018 Generated: 11/14/18 7:21 pm Comments DCP- Discharge Planning Updated by [email or web address]: Nancy Montemayor on 11/14/18 5:[address] Patient choice form signed for referral to [facility]. Telephone call to facility x3. No answer. Faxed referral. Will call in am. DCP- Discharge Planning Updated by [email or web address]: Nancy Montemayor on 11/14/18 4:[address] LATE ENTRY CM SPOKE WITH THE PATIENT AT HIS REQUEST THIS EARLY PM. HE ASK THAT I CALL MR STEVEN MAYBERRY, HIS POA. THE PATIENT WOULD LIKE TO GO TO [facility] AN REHAB ON [facility]. CM CALLED MR MAYBERRY. HE STATED HE UNDERSTOOD THE DOCTOR FELT THAT WAS A BETTER PLAN. WILL FORWARD REFERRAL TO [place] FOR REVIEW IN THE AM. [facility] WOULD BE HIS NEXT CHOICE IF [facility] CANNOT ACCEPT. PATIENT LIVES CLOSE TO [facility]. DCP- Discharge Planning Updated by [id number]: Joelle Gabriel on 11/12/18 10:[address] Spoke with patient and his medical POA (Steven Mayberry) about discharge plan. He wants to go home and continue HHS with [facility]. He states that usually [facility] will take him home. I called [facility] ([phone]) and spoke to Gefer. Swainelder states to call their number tomorrow and they will have answering service take care of it. She states she will call patient and explain and also will start working on his transportation needs today. I called [facility] and spoke with Jessica to resume HHS on discharge tomorrow, clinical faxed. Will need to fax discharge orders. CM will continue to follow and assist with discharge planning/needs. DCP- Discharge Planning Updated by [email or web address]: Joelle Gabriel on 11/12/18 9:[address] Met with patient, he is unsure if he wants to go home with home health or to a skilled facility. He states he will discuss with friend coming here in an hour and let me know. CM will continue to follow and assist with discharge planning/needs. DCP- Discharge Planning Updated by [email or web address]: Joelle Gabriel on 11/11/18 2:[address] Patient Name: SRIKANTH JMAES Admission Status: ER Accout number: [id number] Admission Date: 11-10-2018 : 1960 Admission Diagnosis: Attending: SCOT JAIN Current LOS: 1 Anticipated DC Date: Planned Disposition: Correction Facility Primary Insurance: MEDICARE A & B Discharge Planning Comments: CM met with patient to discuss discharge planning, he is alone in the room. States he lives alone in a one story home. States he has [facility] come 3 times a week for nursing care. [facility] home care comes in and takes him to his appointments. States he is able to transfer himself using a slide board. I discussed SNF with him until he is healed from fracture and he agrees. States he is unsure which SNF to go to but thinks it is [facility] and will check with his friend when he comes tonight. He asks me to check back with him in the morning before signing a MICHAELA form. CM will continue to follow and assist with discharge planning/needs. Towel Hemmer: Joelle Gabriel DCPIA - Discharge Planning Initial Assessment Updated by [email or web address]: Joelle Gabriel on 11/11/18 3:39 pm * Is the patient Alert and Oriented? Yes * How many steps to enter\exit or inside your home? Ramp/0 * PCP Dr. Jain * Pharmacy [facility] on [address] * Preadmission Environment Home Alone * ADLs Partial Dependent * Partial ADLs (Assistance needed) Ambulation Bathing * Equipment Other Wheelchair * Other Equipment Slide Board Motorized wheelchair * List name and contact numbers for known caregivers / representatives who currently or will assist patient after discharge: Steven Williamson-[phone] * Verbal permission to speak to the caregivers and representatives has been obtained from the patient. Yes * Community resources currently utilized Home Health Private Duty Care * Please name any agencies selected above. [facility] for personal care * Additional services required to return to the preadmission environment? Yes * Can the patient safely return to the preadmission environment? No * Has this patient been hospitalized within the prior 30 days at any hospital? No Last DP export: 11/14/18 4:43 pm Patient Name: SRIKANTH JAMES Page 95231 at 1821 All edits/amendments must be made on the electronic document DICTATION DATE: 11/14/181819 PRIVATE BRANCH EXCHANGE REPAIRER: JARRED 11/14/181819 RPT#: [id number] DC DATE: STATUS: ADM IN [facility] [address] [place] [address] END OF REPORT
[2018-11-14 20:00] VITALS: BP 131/77
[2018-11-15] VITALS: BP 140/70
[2018-11-15 04:00] VITALS: BP 133/78
[2018-11-15 06:55] LABS: BASOPHILS 0.3 % (0-2); EOSINOPHILS 3.2 % (0-7); HEMATOCRIT 27.9 % (42.0-54.0); HEMOGLOBIN 9.1 g/dL (13.5-17.5); IMMATURE GRANULOCYTES 0.6 % (0-5); LYMPHOCYTES 10.5 % (15-50); MCHC 32.6 g/dL (31.0-37.0); MCV 94.9 fL (80.0-100.0); MEAN PLATELET VOLUME 8.4 fL (7.4-10.4); MONOCYTES 16.5 % (2-11); NEUTROPHILS 68.9 % (40-80); PLATELET COUNT 274 10x3/uL (130-400); RBC 2.94 10x6/uL (4.20-6.10); RDW 15.4 % (11.5-14.5)
[2018-11-15 07:02] LABS: CALC OSMOLALITY 269 mosm/kg (275-300); CALCIUM 8.2 mg/dL (8.5-10.1); CARBON DIOXIDE 24.8 mmol/L (21.0-32.0); CHLORIDE - SERUM 103 mmol/L (98-107); CREATININE - SERUM 0.5 mg/dL (0.6-1.3); GLUCOSE 101 mg/dL (74-106); POTASSIUM - SERUM 3.5 mmol/L (3.5-5.1); SODIUM 136 mmol/L (136-145); UREA NITROGEN 6 mg/dL (7-18); eGFR NON AFRICAN AMERICAN > 90 mL/min (90-120)
[2018-11-15 07:04] LABS: WBC 7.7 10x3/uL (4.8-10.8)
[2018-11-15] MEDS ORDERED: XARELTO20 MG PO (07:29)
[2018-11-15] MEDS ORDERED: NORCO 10-325 TA1 TAB PO (07:30)
[2018-11-15] MEDS ORDERED: PROTONIX40 MG PO (07:30)
[2018-11-15 08:24] VITALS: BP 125/91
--- NOTE | 2018-11-15 09:26 | MORECARE ---
CASE MANAGEMENT DISCHARGE SUMMARY PATIENT: SRIKANTH JAMES UNIT: [id number] ADM DATE: 11/10/18 AGE: 58 : 58 SEX: M ROOM/BED: D.2236 AUTHOR: NHAN,DOC PHYSICIAN: REFERRING PHYSICIAN: SCOT JAIN MD DATE OF SERVICE: 11/15/18 Discharge Plan Patient Name: SRIKANTH JAMES Facility: [facility]:[place] : 1960 Planned Disposition: Prison Facility Anticipated Discharge Date: Discharge Date: Expected LOS: Initial Reviewer: [email or web address] Initial Review Date: 11/11/2018 Generated: 11/15/18 10:26 am Comments DCP- Discharge Planning Updated by [email or web address]: Nancy Montemayor on 11/14/18 5:[address] Patient choice form signed for referral to [facility]. Telephone call to facility x3. No answer. Faxed referral. Will call in am. DCP- Discharge Planning Updated by [email or web address]: Nancy Montmeayor on 11/14/18 4:[address] LATE ENTRY CM SPOKE WITH THE PATIENT AT HIS REQUEST THIS EARLY PM. HE ASK THAT I CALL MR STEVEN MAYBERRY, HIS POA. THE PATIENT WOULD LIKE TO GO TO [facility] AN REHAB ON [facility] [facility]. CM CALLED MR MAYBERRY. HE STATED HE UNDERSTOOD THE DOCTOR FELT THAT WAS A BETTER PLAN. WILL FORWARD REFERRAL TO [place] FOR REVIEW IN THE AM. [facility] WOULD BE HIS NEXT CHOICE IF [facility] CANNOT ACCEPT. PATIENT LIVES CLOSE TO [facility]. DCP- Discharge Planning Updated by [email or web address]: Joelle Gabriel on 11/12/18 10:[address] Spoke with patient and his medical POA (Steven Mayberry) about discharge plan. He wants to go home and continue HHS with [facility]. He states that usually [facility] will take him home. I called [facility] ([phone]) and spoke to Jessica states to call their number tomorrow and they will have answering service take care of it. She states she will call patient and explain and also will start working on his transportation needs today. I called [facility] and spoke with Jessica to resume HHS on discharge tomorrow, clinical faxed. Will need to fax discharge orders. CM will continue to follow and assist with discharge planning/needs. DCP- Discharge Planning Updated by [email or web address]: Joelle Gabriel on 11/12/18 9:[address] Met with patient, he is unsure if he wants to go home with home health or to a skilled facility. He states he will discuss with friend coming here in an hour and let me know. CM will continue to follow and assist with discharge planning/needs. DCP- Discharge Planning Updated by [email or web address]: Joelle Gabriel on 11/11/18 2:[address] Patient Name: SRIKANTH JAMES Admission Status: ER Accout number: [id number] Admission Date: 11-10-2018 : 1960 Admission Diagnosis: Attending: SCOT JAIN Current LOS: 1 Anticipated DC Date: Planned Disposition: Prison Facility Primary Insurance: MEDICARE A & B Discharge Planning Comments: CM met with patient to discuss discharge planning, he is alone in the room. States he lives alone in a one story home. States he has [facility] come 3 times a week for nursing care. [facility] home care comes in and takes him to his appointments. States he is able to transfer himself using a slide board. I discussed SNF with him until he is healed from fracture and he agrees. States he is unsure which SNF to go to but thinks it is [facility] and will check with his friend when he comes tonight. He asks me to check back with him in the morning before signing a MICHAELA form. CM will continue to follow and assist with discharge planning/needs. Trimmer Climber: Joelle Gabriel DCPIA - Discharge Planning Initial Assessment Updated by [email or web address]: Joelle Gabriel on 11/11/18 3:39 pm * Is the patient Alert and Oriented? Yes * How many steps to enter\exit or inside your home? Ramp/0 * PCP Dr. Jain * Pharmacy [facility] on [address] * Preadmission Environment Home Alone * ADLs Partial Dependent * Partial ADLs (Assistance needed) Ambulation Bathing * Equipment Other Wheelchair * Other Equipment Slide Board Motorized wheelchair * List name and contact numbers for known caregivers / representatives who currently or will assist patient after discharge: Steven Williamson-[phone] * Verbal permission to speak to the caregivers and representatives has been obtained from the patient. Yes * Community resources currently utilized Home Health Private Duty Care * Please name any agencies selected above. [facility] for personal care * Additional services required to return to the preadmission environment? Yes * Can the patient safely return to the preadmission environment? No * Has this patient been hospitalized within the prior 30 days at any hospital? No External Providers External Provider: [facility] Next Contact Date: Service Request Date: Service Type: Resolution: Reviewer: Comments: Last DP export: 11/14/18 5:21 pm Patient Name: SRIKANTH JMAES Page [id number] at 0926 All edits/amendments must be made on the electronic document DICTATION DATE: 11/15/18925 STRUCTURAL STEEL IRONWORKER: JARRED 11/15/18925 RPT#: [id number] DC DATE: STATUS: ADM IN [facility] [address] [place] [address] END OF REPORT
--- NOTE | 2018-11-15 09:36 | MORECARE ---
CASE MANAGEMENT DISCHARGE SUMMARY PATIENT: SRIKANTH JAMES UNIT: [id number] ADM DATE: 11/10/18 AGE: 58 : 58 SEX: M ROOM/BED: D.2236 AUTHOR: NHAN,DOC PHYSICIAN: REFERRING PHYSICIAN: SCOT JAIN MD DATE OF SERVICE: 11/15/18 Discharge Plan Patient Name: SRIKANTH JAMES Facility: [facility]:[place] : 1960 Planned Disposition: Intermediate Facility Anticipated Discharge Date: Discharge Date: Expected LOS: Initial Reviewer: [email or web address] Initial Review Date: 11/11/2018 Generated: 11/15/18 10:36 am Comments DCP- Discharge Planning Updated by [email or web address]: Joelle Gabriel on 11/15/18 8:[address] Spoke with Monica with [facility]. She states she has not reviewed his clinical yet and will call me back when accepted. Discharge clinical faxed. CM will continue to follow and assist with discharge planning/needs. DCP- Discharge Planning Updated by [email or web address]: Nancy Montemayor on 11/14/18 5:[address] Patient choice form signed for referral to [facility]. Telephone call to facility x3. No answer. Faxed referral. Will call in am. DCP- Discharge Planning Updated by [email or web address]: Nancy Montemayor on 11/14/18 4:[address] LATE ENTRY CM SPOKE WITH THE PATIENT AT HIS REQUEST THIS EARLY PM. HE ASK THAT I CALL MR STEVEN MAYBERRY, HIS POA. THE PATIENT WOULD LIKE TO GO TO [facility] AN REHAB ON [facility] [address] [facility]. CM CALLED MR MAYBERRY. HE STATED HE UNDERSTOOD THE DOCTOR FELT THAT WAS A BETTER PLAN. WILL FORWARD REFERRAL TO [place] FOR REVIEW IN THE AM. [facility] WOULD BE HIS NEXT CHOICE IF [facility] CANNOT ACCEPT. PATIENT LIVES CLOSE TO [facility]. DCP- Discharge Planning Updated by [email or web address]: Joelle Gabriel on 11/12/18 10:[address] Spoke with patient and his medical POA (Steven Mayberry) about discharge plan. He wants to go home and continue HHS with [facility]. He states that usually [facility] will take him home. I called [facility] ([phone]) and spoke to Gefer. Lopez states to call their number tomorrow and they will have answering service take care of it. She states she will call patient and explain and also will start working on his transportation needs today. I called [facility] and spoke with Jessica to resume [facility] on discharge tomorrow, clinical faxed. Will need to fax discharge orders. CM will continue to follow and assist with discharge planning/needs. DCP- Discharge Planning Updated by [email or web address]: Joelle Gabriel on 11/12/18 9:[address] Met with patient, he is unsure if he wants to go home with home health or to a skilled facility. He states he will discuss with friend coming here in an hour and let me know. CM will continue to follow and assist with discharge planning/needs. DCP- Discharge Planning Updated by [email or web address]: Joelle Gabriel on 11/11/18 2:[address] Patient Name: SRIKANTH JAMES Admission Status: ER Accout number: [id number] Admission Date: 11-10-2018 : 1960 Admission Diagnosis: Attending: SCOT JAIN Current LOS: 1 Anticipated DC Date: Planned Disposition: Intermediate Facility Primary Insurance: MEDICARE A & B Discharge Planning Comments: CM met with patient to discuss discharge planning, he is alone in the room. States he lives alone in a one story home. States he has [facility] come 3 times a week for nursing care. States [facility] care comes in and takes him to his appointments. States he is able to transfer himself using a slide board. I discussed SNF with him until he is healed from fracture and he agrees. States he is unsure which SNF to go to but thinks it is [facility] and will check with his friend when he comes tonight. He asks me to check back with him in the morning before signing a MICHAELA form. CM will continue to follow and assist with discharge planning/needs. Salesperson [employer]: Joelle Gabriel DCPIA - Discharge Planning Initial Assessment Updated by [email or web address]: Joelle Gabriel on 11/11/18 3:39 pm * Is the patient Alert and Oriented? Yes * How many steps to enter\exit or inside your home? Ramp/0 * PCP Dr. Jain * Pharmacy [facility] on [address] * Preadmission Environment Home Alone * ADLs Partial Dependent * Partial ADLs (Assistance needed) Ambulation Bathing * Equipment Other Wheelchair * Other Equipment Slide Board Motorized wheelchair * List name and contact numbers for known caregivers / representatives who currently or will assist patient after discharge: Steven Espinoza - [phone] * Verbal permission to speak to the caregivers and representatives has been obtained from the patient. Yes * Community resources currently utilized Home Health Private Duty Care * Please name any agencies selected above. [facility] for personal care * Additional services required to return to the preadmission environment? Yes * Can the patient safely return to the preadmission environment? No * Has this patient been hospitalized within the prior 30 days at any hospital? No Last DP export: 11/15/18 8:26 am Patient Name: SRIKANTH JAMES Page [id number] at 0936 All edits/amendments must be made on the electronic document DICTATION DATE: 11/15/18934 JAIL GUARD: JARRED 11/15/18934 RPT#: [id number] DC DATE: STATUS: ADM IN [facility] [address] [place] [address] END OF REPORT
[2018-11-15 12:00] VITALS: BP 137/88
--- NOTE | 2018-11-15 13:35 | MORECARE ---
CASE MANAGEMENT DISCHARGE SUMMARY PATIENT: SRIKANTH JAMES UNIT: [id number] ADM DATE: 11/10/18 AGE: 58 : 58 SEX: M ROOM/BED: D.2236 AUTHOR: NHAN,DOC PHYSICIAN: REFERRING PHYSICIAN: SCOT JAIN MD DATE OF SERVICE: 11/15/18 Discharge Plan Patient Name: SRIKANTH JAMES [facility] [facility] 1960 Planned Disposition: Usp Facility Anticipated Discharge Date: Discharge Date: Expected LOS: Initial Reviewer: [email or web address] Initial Review Date: 11/11/2018 Generated: 11/15/18 2:35 pm Comments DCP- Discharge Planning Updated by [email or web address]: Joelle Gabriel on 11/15/18 12:[address] Received a call from Monica that they have not accepted patient for SNF because of open workman's comp case and also too high acuity. I spoke with him regarding open case with workman's comp. He states "I go through this all the time." He gave me his major case detective "Robbie at [employer]" number to try and work it out. Robbie's number is [phone]. I spoke with him and he sent me a letter. I called his second choice, [facility], spoke with Joycelyn and all clinical faxed including Robbie's letter. CM will continue to follow and assist with discharge planning/needs. DCP- Discharge Planning Updated by [email or web address]: Joelle Gabriel on 11/15/18 8:[address] Spoke with Monica with [facility]. She states she has not reviewed his clinical yet and will call me back when accepted. Discharge clinical faxed. CM will continue to follow and assist with discharge planning/needs. DCP- Discharge Planning Updated by [id number]: Nancy Montemayor on 11/14/18 5:[address] Patient choice form signed for referral to [facility]. Telephone call to facility x3. No answer. Faxed referral. Will call in am. DCP- Discharge Planning Updated by [email or web address]: Nancy Montemayor on 11/14/18 4:[address] LATE ENTRY CM SPOKE WITH THE PATIENT AT HIS REQUEST THIS EARLY PM. HE ASK THAT I CALL MR LAMBERT MAYBERRY, HIS POA. THE PATIENT [facility]. CM CALLED MR MAYBERRY. HE STATED HE UNDERSTOOD THE DOCTOR FELT THAT WAS A BETTER PLAN. WILL FORWARD REFERRAL TO [place] FOR REVIEW IN THE AM. [facility] WOULD BE HIS NEXT CHOICE IF [facility] CANNOT ACCEPT. PATIENT LIVES CLOSE TO [facility]. DCP- Discharge Planning Updated by [email or web address]: Joelle Nery on 11/12/18 10:[address] Spoke with patient and his medical POA (Lambert Mayberry) about discharge plan. He wants to go home and continue HHS with [facility]. He states that usually [facility] will take him home. I called [facility] ([phone]) and spoke to Jessica states to call their number tomorrow and they will have answering service take care of it. She states she will call patient and explain and also will start working on his transportation needs today. I called [facility] and spoke with Jessica to resume HHS on discharge tomorrow, clinical faxed. Will need to fax discharge orders. CM will continue to follow and assist with discharge planning/needs. DCP- Discharge Planning Updated by [email or web address]: Joelle Gabriel on 11/12/18 9:[address] Met with patient, he is unsure if he wants to go home with home health or to a skilled facility. He states he will discuss with friend coming here in an hour and let me know. CM will continue to follow and assist with discharge planning/needs. DCP- Discharge Planning Updated by [email or web address]: Joelle Gabriel on 11/11/18 2:[address] Patient Name: SRIKANTH JAMES Admission Status: ER Accout number: [id number] Admission Date: 11-10-2018 : 1960 Admission Diagnosis: Attending: SCOT JAIN Current LOS: 1 Anticipated DC Date: Planned Disposition: Usp Facility Primary Insurance: MEDICARE A & B Discharge Planning Comments: CM met with patient to discuss discharge planning, he is alone in the room. States he lives alone in a one story home. States he has [facility] come 3 times a week for nursing care. States [facility] comes in and takes him to his appointments. States he is able to transfer himself using a slide board. I discussed SNF with him until he is healed from fracture and he agrees. States he is unsure which SNF to go to but thinks it is [facility] and will check with his friend when he comes tonight. He asks me to check back with him in the morning before signing a MICHAELA form. CM will continue to follow and assist with discharge planning/needs. Closet Builder: Joelle Gabriel DCPIA - Discharge Planning Initial Assessment Updated by [email or web address]: Joelle Gabriel on 11/11/18 3:39 pm * Is the patient Alert and Oriented? Yes * How many steps to enter\\exit or inside your home? Ramp/0 * PCP Dr. Jain * Pharmacy [facility] on [address] * Preadmission Environment Home Alone * ADLs Partial Dependent * Partial ADLs (Assistance needed) Ambulation Bathing * Equipment Other Wheelchair * Other Equipment Slide Board Motorized wheelchair * List name and contact numbers for known caregivers / representatives who currently or will assist patient after discharge: Lambert Espinoza - [phone] * Verbal permission to speak to the caregivers and representatives has been obtained from the patient. Yes * Community resources currently utilized Home Health Private Duty Care * Please name any agencies selected above. [facility] for personal care * Additional services required to return to the preadmission environment? Yes * Can the patient safely return to the preadmission environment? No * Has this patient been hospitalized within the prior 30 days at any hospital? No External Providers External Provider: [facility] Next Contact Date: Service Request Date: Service Type: Resolution: Reviewer: Comments: Coverage Notice Reviewer: [email or web address] - Joelle Gabriel Notice Issued Date-Time: 11/15/2018 9:38 Notice Type: IM Discharge Notice Notice Delivered To: Patient Relationship to Patient: Self Check Processor Name: Delivery Method: HAND - Hand Delivered Mine Days: Prior Verbal Notification: Recipient Understood Notice: Yes Recipient Signature: Yes Med Rec Note Co-signed by Attending: Coverage Notice Comment: IMM explained, signed, copy given, original placed in MR Last DP export: 11/15/18 8:36 am Patient Name: SRIKANTH JAMES Page 23821 at 1335 All edits/amendments must be made on the electronic document DICTATION DATE: 11/15/181334 NUCLEAR SUPERVISING OPERATOR: JARRED 11/15/18 133 RPT#: [id number] DC DATE: STATUS: ADM IN [facility] [address] [place] [address] END OF REPORT
--- NOTE | 2018-11-15 15:46 | MORECARE ---
CASE MANAGEMENT DISCHARGE SUMMARY PATIENT: SRIKANTH JAMES UNIT: [id number] ADM DATE: 11/10/18 AGE: 58 : 58 SEX: M ROOM/BED: D.2236 AUTHOR: NHAN,DOC PHYSICIAN: REFERRING PHYSICIAN: SCOT JAIN MD DATE OF SERVICE: 11/15/18 Discharge Plan Patient Name: SRIKANTH JAMES Facility: [facility]:[place] : 1960 Planned Disposition: Assisted Facility Anticipated Discharge Date: Discharge Date: Expected LOS: Initial Reviewer: [id number] Initial Review Date: 11/11/2018 Generated: 11/15/18 4:46 pm Comments DCP- Discharge Planning Updated by [email or web address]: Joelle Gabriel on 11/15/18 2:[address] Spoke with Joycelyn to follow up on admission to [place]. Joycelyn states she will have to present this to her storage administrator, but he will not be accepted today. I called and informed Dr. Jain. CM will continue to follow and assist with discharge planning/needs. DCP- Discharge Planning Updated by [id number]: Joelle Gbariel on 11/15/18 12:[address] Received a call from Monica that they have not accepted patient for SNF because of open workman's comp case and also too high acuity. I spoke with him regarding open case with workman's comp. He states "I go through this all the time." He gave me his supportive employment case manager "Robbie at [facility]" number to try and work it out. Robbie's number is [phone]. I spoke with him and he sent me a letter. I called his second choice, [facility], spoke with Joycelyn and all clinical faxed including Robbie's letter. CM will continue to follow and assist with discharge planning/needs. DCP- Discharge Planning Updated by [id number]: Joelle Gabriel on 11/15/18 8:[address] Spoke with Monica with [facility]. She states she has not reviewed his clinical yet and will call me back when accepted. Discharge clinical faxed. CM will continue to follow and assist with discharge planning/needs. DCP- Discharge Planning Updated by [id number]: Nancy Montemayor on 11/14/18 5:[address] Patient choice form signed for referral to [facility]. Telephone call to facility x3. No answer. Faxed referral. Will call in am. DCP- Discharge Planning Updated by [email or web address]: Nancymarisel Montemayor on 11/14/18 4:[address] LATE ENTRY CM SPOKE WITH THE PATIENT AT HIS REQUEST THIS EARLY PM. HE ASK THAT I CALL MR LAMBERT MAYBERRY, HIS POA. THE PATIENT WOULD LIKE TO GO TO [facility] AN REHAB ON [facility]. CM CALLED MR MAYBERRY. HE STATED HE UNDERSTOOD THE DOCTOR FELT THAT WAS A BETTER PLAN. WILL FORWARD REFERRAL TO [place] FOR REVIEW IN THE AM. [facility] WOULD BE HIS NEXT CHOICE IF [facility] CANNOT ACCEPT. PATIENT LIVES CLOSE TO [facility]. DCP- Discharge Planning Updated by [id number]: Joelle Gabriel on 11/12/18 10:[address] Spoke with patient and his medical POA (Lambert Mayberry) about discharge plan. He wants to go home and continue HHS with [facility]. He states that usually [facility] will take him home. I called [facility] ([phone]) and spoke to Jessica states to call their number tomorrow and they will have answering service take care of it. She states she will call patient and explain and also will start working on his transportation needs today. I called [facility] and spoke with Jessica to resume HHS on discharge tomorrow, clinical faxed. Will need to fax discharge orders. CM will continue to follow and assist with discharge planning/needs. DCP- Discharge Planning Updated by [id number]: Joelle Gabriel on 11/12/18 9:[address] Met with patient, he is unsure if he wants to go home with home health or to a skilled facility. He states he will discuss with friend coming here in an hour and let me know. CM will continue to follow and assist with discharge planning/needs. DCP- Discharge Planning Updated by [email or web address]: Joelle Gabriel on 11/11/18 2:[address] Patient Name: SRIKANTH JAMES Admission Status: ER Accout number: [id number] Admission Date: 11-10-2018 : 1960 Admission Diagnosis: Attending: SCOT JAIN Current LOS: 1 Anticipated DC Date: Planned Disposition: Assisted Facility Primary Insurance: MEDICARE A & B Discharge Planning Comments: CM met with patient to discuss discharge planning, he is alone in the room. States he lives alone in a one story home. States he has [facility] come 3 times a week for nursing care. [facility] home care comes in and takes him to his appointments. States he is able to transfer himself using a slide board. I discussed SNF with him until he is healed from fracture and he agrees. States he is unsure which SNF to go to but thinks it is [facility] and will check with his friend when he comes tonight. He asks me to check back with him in the morning before signing a MICHAELA form. CM will continue to follow and assist with discharge planning/needs. Dump Attendant: Joelle Gabriel DCPIA - Discharge Planning Initial Assessment Updated by [email or web address]: Joelle Gabriel on 11/11/18 3:39 pm * Is the patient Alert and Oriented? Yes * How many steps to enter\\exit or inside your home? Ramp/0 * PCP Dr. Jain * Pharmacy [facility] on [facility] * Preadmission Environment Home Alone * ADLs Partial Dependent * Partial ADLs (Assistance needed) Ambulation Bathing * Equipment Other Wheelchair * Other Equipment Slide Board Motorized wheelchair * List name and contact numbers for known caregivers / representatives who currently or will assist patient after discharge: Lambert Espinoza - [phone] * Verbal permission to speak to the caregivers and representatives has been obtained from the patient. Yes * Community resources currently utilized Home Health Private Duty Care * Please name any agencies selected above. [facility] home care for personal care * Additional services required to return to the preadmission environment? Yes * Can the patient safely return to the preadmission environment? No * Has this patient been hospitalized within the prior 30 days at any hospital? No Coverage Notice Reviewer: [id number] - Joelle Gabriel Notice Issued Date-Time: 11/15/2018 9:38 Notice Type: IM Discharge Notice Notice Delivered To: Patient Relationship to Patient: Self Payroll Bookkeeper Name: Delivery Method: HAND - Hand Delivered Mine Days: Prior Verbal Notification: Recipient Understood Notice: Yes Recipient Signature: Yes Med Rec Note Co-signed by Attending: Coverage Notice Comment: IMM explained, signed, copy given, original placed in MR Last DP export: 11/15/18 12:35 pm Patient Name: SRIKANTH JAMES Page [id number] at 1546 All edits/amendments must be made on the electronic document DICTATION DATE: 11/15/181545 POWDER AND PRIMER CANNING LEADER: JARRED 11/15/181545 RPT#: [id number] DC DATE: STATUS: ADM IN [facility] [address] [place] [address] END OF REPORT
[2018-11-15 16:13] VITALS: BP 147/94
[2018-11-16] VITALS: BP 147/90
[2018-11-16 08:15] VITALS: BP 158/97
--- NOTE | 2018-11-16 11:16 | MORECARE ---
CASE MANAGEMENT DISCHARGE SUMMARY PATIENT: SRIKANTH JAMES UNIT: [id number] ADM DATE: 11/10/18 AGE: 58 : 58 SEX: M ROOM/BED: D.2236 AUTHOR: NHAN,DOC PHYSICIAN: REFERRING PHYSICIAN: SCOT JAIN MD DATE OF SERVICE: 11/16/18 Discharge Plan Patient Name: SRIKANTH JAMES Facility: [facility]:[place] : 1960 Planned Disposition: Penitentiary Facility Anticipated Discharge Date: Discharge Date: Expected LOS: Initial Reviewer: [id number] Initial Review Date: 11/11/2018 Generated: 11/16/18 12:15 pm Comments DCP- Discharge Planning Updated by [id number]: Joelle Gabriel on 11/16/18 10:[address] Joycelyn from [facility] called and states they are unable to accept patient due to open workmans comp case. I informed patient and he wants to go home. I called Dr. Jain's office and spoke to Dr. Childress. Dr. Childress states he will be by the hospital at lunch and check on him to see if he is ready for discharge to home. DCP- Discharge Planning Updated by [email or web address]: Joelle Gabriel on 11/15/18 2:[address] Spoke with Joycelyn to follow up on admission to [facility]. Joycelyn states she will have to present this to her home administrator, but he will not be accepted today. I called and informed Dr. Jain. CM will continue to follow and assist with discharge planning/needs. DCP- Discharge Planning Updated by [id number]: Joelle Gabriel on 11/15/18 12:[address] Received a call from Monica that they have not accepted patient for SNF because of open workman's comp case and also too high acuity. I spoke with him regarding open case with workman's comp. He states "I go through this all the time." He gave me his caser in "Robbie at [employer]" number to try and work it out. Robbie's number is [phone]. I spoke with him and he sent me a letter. I called his second choice, [facility], spoke with Joycelyn and all clinical faxed including Robbie's letter. CM will continue to follow and assist with discharge planning/needs. DCP- Discharge Planning Updated by [id number]: Joelle Gabriel on 11/15/18 8:[address] Spoke with Monica with [facility]. She states she has not reviewed his clinical yet and will call me back when accepted. Discharge clinical faxed. CM will continue to follow and assist with discharge planning/needs. DCP- Discharge Planning Updated by [id number]: Nancy Montemayor on 11/14/18 5:[address] Patient choice form signed for referral to [facility]. Telephone call to facility x3. No answer. Faxed referral. Will call in am. DCP- Discharge Planning Updated by [id number]: Nancy Montemayor on 11/14/18 4:[address] LATE ENTRY CM SPOKE WITH THE PATIENT AT HIS REQUEST THIS EARLY PM. HE ASK THAT I CALL MR LAMBERT MAYBERRY, HIS POA. THE PATIENT WOULD LIKE TO GO TO [facility] AN REHAB ON [facility]. CM CALLED MR MAYBERRY. HE STATED HE UNDERSTOOD THE DOCTOR FELT THAT WAS A BETTER PLAN. WILL FORWARD REFERRAL TO [place] FOR REVIEW IN THE AM. [facility] WOULD BE HIS NEXT CHOICE IF [facility] CANNOT ACCEPT. PATIENT LIVES CLOSE TO [facility]. DCP- Discharge Planning Updated by [id number]: Joelle Nery on 11/12/18 10:[address] Spoke with patient and his medical POA (Lambert Mayberry) about discharge plan. He wants to go home and continue HHS with [facility]. He states that usually [facility] will take him home. I called [facility] ([phone]) and spoke to Jessica states to call their number tomorrow and they will have answering service take care of it. She states she will call patient and explain and also will start working on his transportation needs today. I called [facility] and spoke with Jessica to resume HHS on discharge tomorrow, clinical faxed. Will need to fax discharge orders. CM will continue to follow and assist with discharge planning/needs. DCP- Discharge Planning Updated by [id number]: Joelle Gabriel on 11/12/18 9:[address] Met with patient, he is unsure if he wants to go home with home health or to a skilled facility. He states he will discuss with friend coming here in an hour and let me know. CM will continue to follow and assist with discharge planning/needs. DCP- Discharge Planning Updated by [id number]: Joelle Calledanie on 11/11/18 2:[address] Patient Name: SRIKANTH JAMES Admission Status: ER Accout number: [id number] Admission Date: 11-10-2018 : 1960 Admission Diagnosis: Attending: SCOT JAIN Current LOS: 1 Anticipated DC Date: Planned Disposition: Penitentiary Facility Primary Insurance: MEDICARE A & B Discharge Planning Comments: CM met with patient to discuss discharge planning, he is alone in the room. States he lives alone in a one story home. States he has [facility] come 3 times a week for nursing care. [facility] home care comes in and takes him to his appointments. States he is able to transfer himself using a slide board. I discussed SNF with him until he is healed from fracture and he agrees. States he is unsure which SNF to go to but thinks it is [facility] and will check with his friend when he comes tonight. He asks me to check back with him in the morning before signing a MICHAELA form. CM will continue to follow and assist with discharge planning/needs. Head Operator Sulfide: Joelle Calledanie DCPIA - Discharge Planning Initial Assessment Updated by [id number]: Joelle Calledanie on 11/11/18 3:39 pm * Is the patient Alert and Oriented? Yes * How many steps to enter\\exit or inside your home? Ramp/0 * PCP Dr. Jain * Pharmacy [facility] on [facility] * Preadmission Environment Home Alone * ADLs Partial Dependent * Partial ADLs (Assistance needed) Ambulation Bathing * Equipment Other Wheelchair * Other Equipment Slide Board Motorized wheelchair * List name and contact numbers for known caregivers / representatives who currently or will assist patient after discharge: Lambert Delgadoalbertoedel - [phone] * Verbal permission to speak to the caregivers and representatives has been obtained from the patient. Yes * Community resources currently utilized Home Health Private Duty Care * Please name any agencies selected above. [facility] care for personal care * Additional services required to return to the preadmission environment? Yes * Can the patient safely return to the preadmission environment? No * Has this patient been hospitalized within the prior 30 days at any hospital? No Coverage Notice Reviewer: [id number] Miley Gabriel Notice Issued Date-Time: 11/15/2018 9:38 Notice Type: IM Discharge Notice Notice Delivered To: Patient Relationship to Patient: Self Operator Bearer Systems Name: Delivery Method: HAND - Hand Delivered Mine Days: Prior Verbal Notification: Recipient Understood Notice: Yes Recipient Signature: Yes Med Rec Note Co-signed by Attending: Coverage Notice Comment: IMM explained, signed, copy given, original placed in MR Last DP export: 11/15/18 2:46 pm Patient Name: SRIKANTH JAMES Page [id number] at 1116 All edits/amendments must be made on the electronic document DICTATION DATE: 11/16/18 111 MEDICAL SECRETARY: JARRED 11/16/18 1115 RPT#: [id number] DC DATE: STATUS: ADM IN [facility] [address] [place] [address] END OF REPORT
--- NOTE | 2018-11-16 11:39 | MORECARE ---
CASE MANAGEMENT DISCHARGE SUMMARY PATIENT: SRIKANTH JAMES UNIT: [id number] ADM DATE: 11/10/18 AGE: 58 : 58 SEX: M ROOM/BED: D.2236 AUTHOR: NHAN,DOC PHYSICIAN: REFERRING PHYSICIAN: SCOT JAIN MD DATE OF SERVICE: 11/16/18 Discharge Plan Patient Name: SRIKANTH JAMES Facility: [facility]:[place] : 1960 Planned Disposition: Half-Way Facility Anticipated Discharge Date: Discharge Date: Expected LOS: Initial Reviewer: [id number] Initial Review Date: 11/11/2018 Generated: 11/16/18 12:39 pm Comments DCP- Discharge Planning Updated by [id number]: Joelle Gabriel on 11/16/18 10:[address] Jain called the unit. He states patient may go home with home health. I called Leanne with [facility] and informed of discharge and clinical and orders faxed. I called [facility] and informed patient is going home. Patient states Rex (his friend) will pick him up and take him home. He denies further needs. CM will continue to follow and assist with discharge planning/needs. DCP- Discharge Planning Updated by [id number]: Joelle Gabriel on 11/16/18 10:[address] Joycelyn from [facility] called and states they are unable to accept patient due to open workmans comp case. I informed patient and he wants to go home. I called Dr. Jain's office and spoke to Dr. Childress. Dr. Childress states he will be by the hospital at lunch and check on him to see if he is ready for discharge to home. DCP- Discharge Planning Updated by [id number]: Joelle Gabriel on 11/15/18 2:[address] Spoke with Joycelyn to follow up on admission to [facility]. Joycelyn states she will have to present this to her junior systems administrator, but he will not be accepted today. I called and informed Dr. Jain. CM will continue to follow and assist with discharge planning/needs. DCP- Discharge Planning Updated by [id number]: Joelle Gabriel on 11/15/18 12:[address] Received a call from Monica that they have not accepted patient for SNF because of open workman's comp case and also too high acuity. I spoke with him regarding open case with workman's comp. He states "I go through this all the time." He gave me his case coordinator "Robbie at [facility]" number to try and work it out. Robbie's number is [phone]. I spoke with him and he sent me a letter. I called his second choice, [facility], spoke with Joycelyn and all clinical faxed including Robbie's letter. CM will continue to follow and assist with discharge planning/needs. DCP- Discharge Planning Updated by [id number]: Joelle Gabriel on 11/15/18 8:[address] Spoke with Monica with [facility]. She states she has not reviewed his clinical yet and will call me back when accepted. Discharge clinical faxed. CM will continue to follow and assist with discharge planning/needs. DCP- Discharge Planning Updated by [id number]: Nancy Montemayor on 11/14/18 5:[address] Patient choice form signed for referral to [facility]. Telephone call to facility x3. No answer. Faxed referral. Will call in am. DCP- Discharge Planning Updated by [id number]: Nancy Montemayor on 11/14/18 4:[address] LATE ENTRY CM SPOKE WITH THE PATIENT AT HIS REQUEST THIS EARLY PM. HE ASK THAT I CALL MR LAMBERT MAYBERRY, HIS POA. THE PATIENT WOULD LIKE TO GO TO [facility] AN REHAB ON [facility]. CM CALLED MR MAYBERRY. HE STATED HE UNDERSTOOD THE DOCTOR FELT THAT WAS A BETTER PLAN. WILL FORWARD REFERRAL TO [place] FOR REVIEW IN THE AM. [facility] WOULD BE HIS NEXT CHOICE IF [facility] CANNOT ACCEPT. PATIENT LIVES CLOSE TO [facility]. DCP- Discharge Planning Updated by [id number]: Joelle Nery on 11/12/18 10:[address] Spoke with patient and his medical POA (Lambert Mayberry) about discharge plan. He wants to go home and continue HHS with [facility]. He states that usually [facility] will take him home. I called [facility] care ([phone]) and spoke to Gefer. Lopez states to call their number tomorrow and they will have answering service take care of it. She states she will call patient and explain and also will start working on his transportation needs today. I called [facility] and spoke with Jessica to resume [facility] on discharge tomorrow, clinical faxed. Will need to fax discharge orders. CM will continue to follow and assist with discharge planning/needs. DCP- Discharge Planning Updated by [id number]: Joelle Gabriel on 11/12/18 9:[address] Met with patient, he is unsure if he wants to go home with home health or to a skilled facility. He states he will discuss with friend coming here in an hour and let me know. CM will continue to follow and assist with discharge planning/needs. DCP- Discharge Planning Updated by [id number]: Joelle Gabriel on 11/11/18 2:[address] Patient Name: SRIKANTH JAMES Admission Status: ER Accout number: [id number] Admission Date: 11-10-2018 : 1960 Admission Diagnosis: Attending: SCOT JAIN Current LOS: 1 Anticipated DC Date: Planned Disposition: Half-Way Facility Primary Insurance: MEDICARE A & B Discharge Planning Comments: CM met with patient to discuss discharge planning, he is alone in the room. States he lives alone in a one story home. States he has [facility] come 3 times a week for nursing care. States [facility] comes in and takes him to his appointments. States he is able to transfer himself using a slide board. I discussed SNF with him until he is healed from fracture and he agrees. States he is unsure which SNF to go to but thinks it is [facility] and will check with his friend when he comes tonight. He asks me to check back with him in the morning before signing a MICHAELA form. CM will continue to follow and assist with discharge planning/needs. Tank Hoop Bender: Joelle Gabriel DCPIA - Discharge Planning Initial Assessment Updated by [id number]: Joelle Gabriel on 11/11/18 3:39 pm * Is the patient Alert and Oriented? Yes * How many steps to enter\\exit or inside your home? Ramp/0 * PCP Dr. Jain * Pharmacy [facility] on [address] * Preadmission Environment Home Alone * ADLs Partial Dependent * Partial ADLs (Assistance needed) Ambulation Bathing * Equipment Other Wheelchair * Other Equipment Slide Board Motorized wheelchair * List name and contact numbers for known caregivers / representatives who currently or will assist patient after discharge: Lambert Espinoza [phone] * Verbal permission to speak to the caregivers and representatives has been obtained from the patient. Yes * Community resources currently utilized Home Health Private Duty Care * Please name any agencies selected above. [facility] for personal care * Additional services required to return to the preadmission environment? Yes * Can the patient safely return to the preadmission environment? No * Has this patient been hospitalized within the prior 30 days at any hospital? No Coverage Notice Reviewer: [id number] Miley Gabriel Notice Issued Date-Time: 11/15/2018 9:38 Notice Type: IM Discharge Notice Notice Delivered To: Patient Relationship to Patient: Self Retail Planning Manager Name: Delivery Method: HAND - Hand Delivered Mine Days: Prior Verbal Notification: Recipient Understood Notice: Yes Recipient Signature: Yes Med Rec Note Co-signed by Attending: Coverage Notice Comment: IMM explained, signed, copy given, original placed in MR Last DP export: 11/16/18 10:16 am Patient Name: SRIKANTH JAMES Page 48867 at 1139 All edits/amendments must be made on the electronic document DICTATION DATE: 11/16/18 1139 PHYSICAL THERAPIST ASSISTANT: JARRED 11/16/18 1139 RPT#: [id number] DC DATE: STATUS: ADM IN [facility] [address] [place] [address] END OF REPORT
[2018-11-16 12:07] VITALS: BP 157/97
--- NOTE | 2018-11-17 16:35 | MORECARE ---
CASE MANAGEMENT DISCHARGE SUMMARY PATIENT: SRIKANTH JAMES UNIT: [id number] ADM DATE: 11/10/18 AGE: 58 : 58 SEX: M ROOM/BED: D.2236 AUTHOR: NHAN,DOC PHYSICIAN: REFERRING PHYSICIAN: SCOT JAIN MD DATE OF SERVICE: 11/17/18 Discharge Plan Patient Name: SRIKANTH JAMES Facility: [facility]:[place] : 1960 Planned Disposition: [facility] Facility Anticipated Discharge Date: Discharge Date: 11/16/2018 Expected LOS: 0 Initial Reviewer: [email or web address] Initial Review Date: 11/11/2018 Generated: 11/17/18 5:35 pm Comments DCP- Discharge Planning Updated by [id number]: Joelle Gabriel on 11/16/18 10:[address] Jain called the unit. He states patient may go home with home health. I called Leanne with [facility] and informed of discharge and clinical and orders faxed. I called Jocelin and informed patient is going home. Patient states Rex (his friend) will pick him up and take him home. He denies further needs. CM will continue to follow and assist with discharge planning/needs. DCP- Discharge Planning Updated by [email or web address]: Joelle Gabriel on 11/16/18 10:[address] Joycelyn from [facility] called and states they are unable to accept patient due to open workmans comp case. I informed patient and he wants to go home. I called Dr. Jain's office and spoke to Dr. Childress. Dr. Childress states he will be by the hospital at lunch and check on him to see if he is ready for discharge to home. DCP- Discharge Planning Updated by [id number]: Joelle Gabriel on 11/15/18 2:[address] Spoke with Joycelyn to follow up on admission to [facility]. Joycelyn states she will have to present this to her traffic safety administrator, but he will not be accepted today. I called and informed Dr. Jain. CM will continue to follow and assist with discharge planning/needs. DCP- Discharge Planning Updated by [id number]: Joelle Gabriel on 11/15/18 12:[address] Received a call from Monica that they have not accepted patient for SNF because of open workman's comp case and also too high acuity. I spoke with him regarding open case with workman's comp. He states "I go through this all the time." He gave me his case hardener "Robbie at [email or web address]" number to try and work it out. Robbie's number is [phone]. I spoke with him and he sent me a letter. I called his second choice, [facility], spoke with Joycelyn and all clinical faxed including Robbie's letter. CM will continue to follow and assist with discharge planning/needs. DCP- Discharge Planning Updated by [id number]: Joelle Gabriel on 11/15/18 8:[address] Spoke with Monica with [facility]. She states she has not reviewed his clinical yet and will call me back when accepted. Discharge clinical faxed. CM will continue to follow and assist with discharge planning/needs. DCP- Discharge Planning Updated by [email or web address]: Nancy Montemayor on 11/14/18 5:[address] Patient choice form signed for referral to [facility]. Telephone call to facility x3. No answer. Faxed referral. Will call in am. DCP- Discharge Planning Updated by [email or web address]: Nancy Montemayor on 11/14/18 4:[address] LATE ENTRY CM SPOKE WITH THE PATIENT AT HIS REQUEST THIS EARLY PM. HE ASK THAT I CALL MR LAMBERT MAYBERRY, HIS POA. THE PATIENT WOULD LIKE TO GO TO [facility]. CM CALLED MR MAYBERRY. HE STATED HE UNDERSTOOD THE DOCTOR FELT THAT WAS A BETTER PLAN. WILL FORWARD REFERRAL TO [facility] FOR REVIEW IN THE AM. [facility] WOULD BE HIS NEXT CHOICE IF [facility] CANNOT ACCEPT. PATIENT LIVES CLOSE TO [facility]. DCP- Discharge Planning Updated by [id number]: Joelle Gabriel on 11/12/18 10:[address] Spoke with patient and his medical POA (Lambert Mayberry) about discharge plan. He wants to go home and continue HHS with [facility]. He states that usually [facility] will take him home. I called [facility] ([phone]) and spoke to Gefer. Lopez states to call their number tomorrow and they will have answering service take care of it. She states she will call patient and explain and also will start working on his transportation needs today. I called [facility] and spoke with Jessica to resume [facility] on discharge tomorrow, clinical faxed. Will need to fax discharge orders. CM will continue to follow and assist with discharge planning/needs. DCP- Discharge Planning Updated by [id number]: Joelle Gabriel on 11/12/18 9:[address] Met with patient, he is unsure if he wants to go home with home health or to a skilled facility. He states he will discuss with friend coming here in an hour and let me know. CM will continue to follow and assist with discharge planning/needs. DCP- Discharge Planning Updated by [email or web address]: Joelle Gabriel on 11/11/18 2:[address] Patient Name: SRIKANTH JAMES Admission Status: ER Accout number: [id number] Admission Date: 11-10-2018 : 1960 Admission Diagnosis: Attending: SCOT JAIN Current LOS: 1 Anticipated DC Date: Planned Disposition: [facility] Facility Primary Insurance: MEDICARE A & B Discharge Planning Comments: CM met with patient to discuss discharge planning, he is alone in the room. States he lives alone in a one story home. States he has [facility] come 3 times a week for nursing care. States [facility] in and takes him to his appointments. States he is able to transfer himself using a slide board. I discussed SNF with him until he is healed from fracture and he agrees. States he is unsure which SNF to go to but thinks it is [facility] and will check with his friend when he comes tonight. He asks me to check back with him in the morning before signing a MICHAELA form. CM will continue to follow and assist with discharge planning/needs. Webmaster: Joelle Gabriel DCPIA - Discharge Planning Initial Assessment Updated by [email or web address]: Joelle Gabriel on 11/11/18 3:39 pm * Is the patient Alert and Oriented? Yes * How many steps to enter\\exit or inside your home? Ramp/0 * PCP Dr. Jain * Pharmacy [facility] * Preadmission Environment Home Alone * ADLs Partial Dependent * Partial ADLs (Assistance needed) Ambulation Bathing * Equipment Other Wheelchair * Other Equipment Slide Board Motorized wheelchair * List name and contact numbers for known caregivers / representatives who currently or will assist patient after discharge: Lambert Espinoza [phone] * Verbal permission to speak to the caregivers and representatives has been obtained from the patient. Yes * Community resources currently utilized Home Health Private Duty Care * Please name any agencies selected above. [facility] for personal care * Additional services required to return to the preadmission environment? Yes * Can the patient safely return to the preadmission environment? No * Has this patient been hospitalized within the prior 30 days at any hospital? No Coverage Notice Reviewer: [id number] Miley Gabriel Notice Issued Date-Time: 11/15/2018 9:38 Notice Type: IM Discharge Notice Notice Delivered To: Patient Relationship to Patient: Self Land Reclamation Specialist Name: Delivery Method: HAND - Hand Delivered Mine Days: Prior Verbal Notification: Recipient Understood Notice: Yes Recipient Signature: Yes Med Rec Note Co-signed by Attending: Coverage Notice Comment: IMM explained, signed, copy given, original placed in MR Last DP export: 11/16/18 10:39 am Patient Name: SRIKANTH JAMES Page [id number] at 1635 All edits/amendments must be made on the electronic document DICTATION DATE: 11/17/18 1634 FOOT SETTER: JARRED 11/17/18 1634 RPT#: [id number] DC DATE:11/16/18 STATUS: DIS IN [facility] [address] [place] [address] END OF REPORT
== END 2018-11-16 14:54 | disposition home health service (06) | DRG 481 ==
LOC: D.ER 09:44 → D.MS 12:24
PROVIDERS: Family Medicine; Internal Medicine Nephrology; Orthopaedic Surgery; ADMIT Family Medicine
PROC: 0KN Muscles, Release (ICD-10-PCS; 2018-11-10)
PROC: 0QSC04Z Reposition Left Lower Femur with Internal Fixation Device, Open Approach (ICD-10-PCS; principal; 2018-11-10 13:30)
DX: S72.452A Displaced supracondylar fracture without intracondylar extension of lower end of left femur, initial encounter for closed fracture (principal); L03.90 Cellulitis, unspecified; G82.20 Paraplegia, unspecified; X58.XXXA Exposure to other specified factors, initial encounter; L89.90 Pressure ulcer of unspecified site, unspecified stage; I10 Essential (primary) hypertension; D50.0 Iron deficiency anemia secondary to blood loss (chronic); F41.8 Other specified anxiety disorders; Z72.0 Tobacco use

== ENCOUNTER 2019-01-03 09:31 | Emergency (ER) | payer MEDICARE, BC ==
[~2019-01-03] VITALS: Ht 177.8 cm; Wt 77.3 kg
[~2019-01-03 09:31] MED LIST changes: +ELIQUIS5 MG PO; +NORCO 10-325 TA1 TAB PO; +PROTONIX40 MG PO; +XARELTO20 MG PO
[2019-01-03 09:40] VITALS: Ht 177.8 cm; Wt 77.3 kg
[2019-01-03 10:27] LABS: BASOPHILS 0.6 % (0-2); EOSINOPHILS 1.8 % (0-7); HEMATOCRIT 26.5 % (42.0-54.0); HEMOGLOBIN 8.3 g/dL (13.5-17.5); IMMATURE GRANULOCYTES 0.2 % (0-5); LYMPHOCYTES 10.5 % (15-50); MCH 31.2 pg (26.0-34.0); MCHC 31.3 g/dL (31.0-37.0); MCV 99.6 fL (80.0-100.0); MEAN PLATELET VOLUME 8.6 fL (7.4-10.4); MONOCYTES 8.2 % (2-11); NEUTROPHILS 78.7 % (40-80); RBC 2.66 10x6/uL (4.20-6.10); RDW 17.1 % (11.5-14.5); WBC 8.4 10x3/uL (4.8-10.8)
[2019-01-03 10:34] LABS: PLATELET COUNT 359 10x3/uL (130-400)
[2019-01-03 10:38] LABS: ALBUMIN 2.7 g/dL (3.4-5.0); ALKALINE PHOSPHATASE 131 U/L (46-116); ALT (SGPT) 13 U/L (10-68); BILIRUBIN - TOTAL 0.21 mg/dL (0.2-1.3); CALC OSMOLALITY 271 mosm/kg (275-300); CALCIUM 8.5 mg/dL (8.5-10.1); CARBON DIOXIDE 25.7 mmol/L (21.0-32.0); CHLORIDE - SERUM 98 mmol/L (98-107); GLUCOSE 118 mg/dL (74-106); POTASSIUM - SERUM 4.7 mmol/L (3.5-5.1); PROTEIN - SERUM 6.9 g/dL (6.4-8.2); SODIUM 134 mmol/L (136-145); UREA NITROGEN 21 mg/dL (7-18); eGFR NON AFRICAN AMERICAN 81 mL/min (90-120)
[2019-01-03 10:38] LABS: APPEARANCE CLOUDY (CLEAR); BACTERIA FEW /hpf (NONE SEEN); BILIRUBIN NEGATIVE (NEGATIVE); COLOR RED (YELLOW); EPITHELIAL CELLS RARE /hpf (0-5); GLUCOSE 50 mg/dL (NEGATIVE); KETONE NEGATIVE (NEGATIVE); NITRITE NEGATIVE (NEGATIVE); PROTEIN 3+ mg/dL (NEGATIVE); RED CELLS - URINE >50 /hpf (0-5); SPECIFIC GRAVITY 1.005 (1.005-1.020); UROBILINOGEN NORMAL (NORMAL)
[2019-01-03 10:54] LABS: INR 1.5 (0.85-1.17); PROTIME 17.5 SECONDS (11.6-15.0)
[2019-01-03 15:05] VITALS: BP 132/84
== END 2019-01-03 15:40 | disposition home or self-care (01) ==
LOC: D.ER 09:31
PROVIDERS: Emergency Medicine
DX: T83.098A Other mechanical complication of other urinary catheter, initial encounter (principal); R31.9 Hematuria, unspecified

== ENCOUNTER → 2019-07-28 11:01 | Outpatient (CLI) | payer MEDICARE, BC ==
[2019-01-03 09:40] VITALS: BMI 24.4
== END | disposition home or self-care (01) ==
LOC: D.MRI 07-26 11:30
PROVIDERS: ATTEND Family Medicine
DX: M54.12 Radiculopathy, cervical region (principal)

== ENCOUNTER 2019-09-16 13:07 | Emergency (ER) | payer MEDICARE, BC ==
[~2019-09-16] VITALS: Ht 177.8 cm; Wt 72.7 kg
[2019-09-16 13:09] VITALS: Ht 177.8 cm; Wt 72.7 kg
[2019-09-16 13:42] LABS: CALC OSMOLALITY 255 mosm/kg (275-300); CALCIUM 8.4 mg/dL (8.5-10.1); CARBON DIOXIDE 24.6 mmol/L (21.0-32.0); CHLORIDE - SERUM 92 mmol/L (98-107); CREATININE - SERUM 0.7 mg/dL (0.6-1.3); GLUCOSE 81 mg/dL (74-106); POTASSIUM - SERUM 3.6 mmol/L (3.5-5.1); SODIUM 129 mmol/L (136-145); UREA NITROGEN 7 mg/dL (7-18); eGFR NON AFRICAN AMERICAN > 90 mL/min (90-120)
[2019-09-16 13:48] LABS: ALBUMIN 2.3 g/dL (3.4-5.0); ALKALINE PHOSPHATASE 175 U/L (46-116); ALT (SGPT) 20 U/L (10-68); BILIRUBIN - TOTAL 0.47 mg/dL (0.2-1.3); PROTEIN - SERUM 6.4 g/dL (6.4-8.2)
[2019-09-16 14:31] LABS: BASOPHILS 0.6 % (0-2); EOSINOPHILS 0.6 % (0-7); HEMATOCRIT 28.6 % (42.0-54.0); HEMOGLOBIN 9.6 g/dL (13.5-17.5); IMMATURE GRANULOCYTES 0.2 % (0-5); LYMPHOCYTES 6.3 % (15-50); MCH 34.4 pg (26.0-34.0); MCHC 33.6 g/dL (31.0-37.0); MCV 102.5 fL (80.0-100.0); MEAN PLATELET VOLUME 8.4 fL (7.4-10.4); NEUTROPHILS 82.3 % (40-80); PLATELET COUNT 369 10x3/uL (130-400); RBC 2.79 10x6/uL (4.20-6.10); RDW 13.2 % (11.5-14.5); WBC 6.4 10x3/uL (4.8-10.8)
[2019-09-16 15:29] VITALS: BP 149/97
== END 2019-09-16 15:29 | disposition home or self-care (01) ==
LOC: D.ER 13:07
PROVIDERS: Family Medicine
DX: M50.30 Other cervical disc degeneration, unspecified cervical region (principal); D64.9 Anemia, unspecified; E87.1 Hypo-osmolality and hyponatremia; G82.20 Paraplegia, unspecified; I10 Essential (primary) hypertension

== ENCOUNTER 2020-01-05 09:58 | Inpatient (IN) | payer MEDICARE, BC ==
[~2020-01-05] VITALS: Ht 177.8 cm; Wt 86.2 kg
[2020-01-13 11:56] LABS: HEMATOCRIT 28.8 % (42.0-54.0); HEMOGLOBIN 9.8 g/dL (13.5-17.5); MCH 33.4 pg (26.0-34.0); MCV 98.3 fL (80.0-100.0); RBC 2.93 10x6/uL (4.20-6.10); RDW 14.1 % (11.5-14.5); WBC 16.1 10x3/uL (4.8-10.8)
[2020-01-13 12:07] LABS: CALC OSMOLALITY 256 mosm/kg (275-300); CALCIUM 8.2 mg/dL (8.5-10.1); CARBON DIOXIDE 25.2 mmol/L (21.0-32.0); CHLORIDE - SERUM 93 mmol/L (98-107); CREATININE - SERUM 0.6 mg/dL (0.6-1.3); POTASSIUM - SERUM 4.3 mmol/L (3.5-5.1); SODIUM 130 mmol/L (136-145); UREA NITROGEN 7 mg/dL (7-18); eGFR NON AFRICAN AMERICAN > 90 mL/min (90-120)
[2020-01-13 12:08] LABS: GLUCOSE 58 mg/dL (74-106)
[2020-01-13 12:11] LABS: INR 1.62 (0.85-1.17)
[2020-01-13 12:12] LABS: APTT 41.7 SECONDS (22.8-39.4)
[2020-01-13 14:33] VITALS: BP 121/80; Ht 177.8 cm; Wt 86.2 kg
--- NOTE | 2020-01-13 15:00 | NUR ---
1440 DR EAGLE AT BEDSIDE. COMMUNICATED TO HIM ABOUT THE SKIN BREAKDOWN ON PT'S BUTTOCKS AND A DEEP PRESSURE ULCER APPROXIMATELY THE SIZE OF A QUARTER THAT IS DRAINING AND BLEEDING WHICH IS LOCATED ON [employer]. RECEIVED ORDERS TO CONSULT WOUND NURSE. PT WANTS AN AIR MATTRESS. DR EAGLE STATED HE WILL ORDER ONE FOR PT TO HAVE ON HIS BED. 1500 RECEIVED COMPUTER MESSAGE THAT PT IS POSITIVE FOR MRSA IN URINE. PT HAS BEEN PLACED ON CONTACT ISOLATION. SURGERY HAS BEEN NOTIFIED OF MRSA STATUS. BEHAVIORAL HEALTH CONSULT WAS SUBMITTED TO [facility] [employer]OL ADMISSIONS REPRESENTATIVE AT 1430.
--- NOTE | 2020-01-13 15:43 | NUR ---
1545 RECAP OF EVENTS. PT PRESENTED WITH LOW BLOOD SUGAR. IV OF LR STARTED AND 300CC OF FLUIDS INFUSED. RECHECKED BS IS 59. DR CLEMENTE NOTIFIED AND ORDERS RECEIVED FOR D50W. UPON ENTERING ROOM TO CHECK BS PT REMOVED A CUP FROM HIS MOUTH AND UPON QUESTIONING STATED HE WAS DIPPING TOBACCO. PT REMOVED TOBACCO AND RINSED MOUTH. DR CLEMENTE NOTIFIED. DR EAGLE CAME TO PT ROOM AT 1535 AND TOLD PT THAT SURGERY WOULD HAVE TO BE CANCELLED DUE TO HIS TOBACCO USE TO AVOID COMPLICATIONS OF POTENTIAL ASPIRATION. IV DC'D. AT 1540. CATHETER TIP INTACT. NO BLEEDING OR SWELLING AT SITE. BANDAID APPLIED. PT GIVEN APPLE JUICE TO DRINK SINCE SURGERY HAS BEEN CANCELLED.
--- NOTE | 2020-01-13 17:38 | NUR ---
9340 PT SURGERY CANCELLED DUE TO DIPPING TOBACCO. PT'S RIDE IS HERE AND HE DOES NOT WANT TO WAIT FOR BH. LEFT WITH FRIEND IN PERSONAL WHEELCHAIR.
== END 2020-01-13 16:39 | disposition home or self-care (01) | DRG 565 ==
LOC: D.SDCHOLD 01-13 11:25
PROVIDERS: Anesthesiology; ADMIT Orthopaedic Surgery; ATTEND Orthopaedic Surgery
DX: T87.81 Dehiscence of amputation stump (principal); I96 Gangrene, not elsewhere classified; Z53.8 Procedure and treatment not carried out for other reasons

== ENCOUNTER 2020-01-15 13:13 | Inpatient (IN) | payer MEDICARE, BC ==
[2020-01-15] VITALS (8 sets, daily range): BP systolic 89–119; BP diastolic 53–79; BMI 24.4
[~2020-01-15] VITALS: Ht 180.3 cm; Wt 90.2 kg
--- NOTE | 2020-01-15 13:16 | NUR ---
MAGAÑA CATH INDWELLING UPON ARRIVAL TO ER.
[2020-01-15 13:51] LABS: BASOPHILS 0.2 % (0-2); EOSINOPHILS 1.2 % (0-7); HEMATOCRIT 22.9 % (42.0-54.0); HEMOGLOBIN 7.7 g/dL (13.5-17.5); LYMPHOCYTES 7.9 % (15-50); MCH 32.9 pg (26.0-34.0); MCHC 33.6 g/dL (31.0-37.0); MCV 97.9 fL (80.0-100.0); MEAN PLATELET VOLUME 7.8 fL (7.4-10.4); MONOCYTES 8.3 % (2-11); NEUTROPHILS 81.4 % (40-80); PLATELET COUNT 363 10x3/uL (130-400); RBC 2.34 10x6/uL (4.20-6.10); RDW 14.2 % (11.5-14.5); WBC 9.9 10x3/uL (4.8-10.8)
[2020-01-15 14:01] LABS: CALC OSMOLALITY 240 mosm/kg (275-300); CALCIUM 7.6 mg/dL (8.5-10.1); CARBON DIOXIDE 24.4 mmol/L (21.0-32.0); CHLORIDE - SERUM 87 mmol/L (98-107); CREATININE - SERUM 0.7 mg/dL (0.6-1.3); GLUCOSE 93 mg/dL (74-106); POTASSIUM - SERUM 3.6 mmol/L (3.5-5.1); UREA NITROGEN 9 mg/dL (7-18); eGFR NON AFRICAN AMERICAN > 90 mL/min (90-120)
[2020-01-15 14:04] LABS: APTT 44.9 SECONDS (22.8-39.4); INR 2.32 (0.85-1.17); PROTIME 25.1 SECONDS (11.6-15.0)
[2020-01-15 14:06] LABS: SODIUM 120 mmol/L (136-145)
--- NOTE | 2020-01-15 14:06 | NUR ---
ERP INFORMED OF SODIUM LEVEL OF 120.
[2020-01-15 14:18] LABS: ALBUMIN 1.4 g/dL (3.4-5.0); ALKALINE PHOSPHATASE 227 U/L (30-120); ALT (SGPT) 11 U/L (10-68); BILIRUBIN - TOTAL 0.32 mg/dL (0.2-1.3); CKMB 0.8 U/L (0.0-3.6); CREATINE KINASE 43 UL (21-232); MAGNESIUM - SERUM 1.5 mg/dL (1.8-2.4); PROTEIN - SERUM 5.5 g/dL (6.4-8.2)
[2020-01-15 14:26] LABS: TROPONIN-I < 0.017 ng/mL (0.000-0.060)
--- NOTE | 2020-01-15 15:25 | NUR ---
2ND BOTTLE OF ALBUMIN: LOT #:[id number], EXP DATE:09/05/21.
--- NOTE | 2020-01-15 19:27 | NUR ---
BLOOD CONSENTS SIGNED
--- NOTE | 2020-01-15 19:40 | NUR ---
YOU ROWE CHARGE IN ROOM WITH THIS NURSE. TWO NURSE CHECK PERFORMED ON A NEGATIVE BLOOD PER TRANSFUSION ORDER. VITALS ASSESSED. RECORDED ON TRANSFUSION SHEET. YOU ROWE INITIATED BLOOD TRANSFUSION. 15 MINUTE MONITORING AT THIS TIME.
--- NOTE | 2020-01-15 22:28 | NUR ---
FIRST TRANSFUSION COMPLETED. VITAL SIGNS STABLE. SEE BLOD FLOW SHEET. PATIENT TOLERATED WITH NO SIGNS OR SYMPTOMS OF DISTRESS.
--- NOTE | 2020-01-15 22:39 | NUR ---
CALLED HS TO PULL HEPARIN.
--- NOTE | 2020-01-15 23:39 | NUR ---
INITITATED SECOND UNIT OF BLOOD. SECOND NURSEVIVIAN LPN AT BEDSIDE FOR SECOND NURSE CHECK OFF.
[2020-01-16] VITALS: BP 109/66
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
--- NOTE | 2020-01-16 01:50 | NUR ---
I have reviewed this patient and I concur with the Shift Assessment completed by the Licensed Practical Nurse today this shift.
--- NOTE | 2020-01-16 01:57 | NUR ---
BLOOD TRANSFUSION REMAINS AT THIS TIME. PATIENT RESTING WITH EYES CLOSED. UNLABORED RESPIRATIONS. CONTINUOUS MONITORING REMAINS IN PLACE, VITAL SIGNS STABLE. CPOC.
--- NOTE | 2020-01-16 02:25 | NUR ---
SECOND UNIT COMPLETED.
--- NOTE | 2020-01-16 02:45 | NUR ---
VERIFIED ORDERS OF 4 UNITS WITH CHARGE NURSE. ORDER STATES TO TRANSFUSE 4 UNITS. VERIFIED AND SET ROOM UP FOR THIRD TRANSFUSION.
--- NOTE | 2020-01-16 03:10 | NUR ---
YOU ALVAREZ INITIATED THIRD BLOOD TRANSFUSION. TWO NURSE CHECK OFF COMPLETED WITH THIS NURSE AND YOU ALVAREZ. PATIENT VITAL SIGNS STABLE. 15 MINUTE MONITORING AND CONTINUOUS VITAL SIGNS REMAIN IN PLACE. CPOC.
[2020-01-16 05:47] LABS: BASOPHILS 0.2 % (0-2); EOSINOPHILS 1.5 % (0-7); IMMATURE GRANULOCYTES 0.7 % (0-5); LYMPHOCYTES 5.9 % (15-50); MCH 31.3 pg (26.0-34.0); MCHC 33.8 g/dL (31.0-37.0); MEAN PLATELET VOLUME 8.3 fL (7.4-10.4); MONOCYTES 9.4 % (2-11); NEUTROPHILS 82.3 % (40-80); PLATELET COUNT 373 10x3/uL (130-400); RDW 15.5 % (11.5-14.5); WBC 10.2 10x3/uL (4.8-10.8)
[2020-01-16 06:39] LABS: HEMATOCRIT 33.7 % (42.0-54.0); HEMOGLOBIN 11.4 g/dL (13.5-17.5); MCV 92.6 fL (80.0-100.0); RBC 3.64 10x6/uL (4.20-6.10)
--- NOTE | 2020-01-16 07:00 | NUR ---
STARTED THE 4TH UNIT OF BLOOD. VS STABLE, HE IS ALERT, BEEN AWAKE MOST OF THE NIGHT.
[2020-01-16 07:10] LABS: CALC OSMOLALITY 257 mosm/kg (275-300); CALCIUM 7.9 mg/dL (8.5-10.1); CARBON DIOXIDE 23.2 mmol/L (21.0-32.0); CHLORIDE - SERUM 97 mmol/L (98-107); CREATININE - SERUM 0.6 mg/dL (0.6-1.3); GLUCOSE 84 mg/dL (74-106); MAGNESIUM - SERUM 1.6 mg/dL (1.8-2.4); SODIUM 130 mmol/L (136-145); UREA NITROGEN 8 mg/dL (7-18); eGFR NON AFRICAN AMERICAN > 90 mL/min (90-120)
[2020-01-16 08:56] VITALS: BP 128/71
--- NOTE | 2020-01-16 09:39 | NUR ---
ALERT, TALKING. THE 4TH UNIT OF BLOOD HAS INFUSED. HIS COCCXY IS RED, BUT BLANCHABLE. HAD A BM THIS MORNING.
[2020-01-16 12:55] VITALS: BMI 24.4
[2020-01-16 13:24] VITALS: BP 134/87
[2020-01-16 13:44] LABS: HEMATOCRIT 38.2 % (42.0-54.0); HEMOGLOBIN 13.3 g/dL (13.5-17.5)
[2020-01-16 17:28] VITALS: BP 145/92
--- NOTE | 2020-01-16 19:35 | NUR ---
SUPINE IN BED, 1ST STEP OVERLAY IN USE. A&O X 4. DENIES PAIN/DISCOMFORT. CONTINUE PLAN OF CARE.
[2020-01-16 20:00] VITALS: BP 140/93
[2020-01-16 22:02] LABS: HEMATOCRIT 36.1 % (42.0-54.0); HEMOGLOBIN 12.5 g/dL (13.5-17.5)
[2020-01-17] VITALS (7 sets, daily range): BP systolic 139–157; BP diastolic 90–102
--- NOTE | 2020-01-17 04:07 | NUR ---
MANUAL BP 157/96
--- NOTE | 2020-01-17 05:43 | NUR ---
I have reviewed this patient and I concur with the Shift Assessment completed by the Licensed Practical Nurse today this shift.
[2020-01-17 05:54] LABS: BASOPHILS 0.2 % (0-2); EOSINOPHILS 0.9 % (0-7); HEMATOCRIT 36.7 % (42.0-54.0); HEMOGLOBIN 12.5 g/dL (13.5-17.5); IMMATURE GRANULOCYTES 0.8 % (0-5); LYMPHOCYTES 5.9 % (15-50); MCH 31.1 pg (26.0-34.0); MCHC 34.1 g/dL (31.0-37.0); MCV 91.3 fL (80.0-100.0); MEAN PLATELET VOLUME 8.3 fL (7.4-10.4); MONOCYTES 9.7 % (2-11); NEUTROPHILS 82.5 % (40-80); PLATELET COUNT 349 10x3/uL (130-400); RBC 4.02 10x6/uL (4.20-6.10); RDW 16.2 % (11.5-14.5); WBC 9.6 10x3/uL (4.8-10.8)
[2020-01-17 07:04] LABS: CALC OSMOLALITY 262 mosm/kg (275-300); CARBON DIOXIDE 22.6 mmol/L (21.0-32.0); CHLORIDE - SERUM 100 mmol/L (98-107); CREATININE - SERUM 0.5 mg/dL (0.6-1.3); GLUCOSE 87 mg/dL (74-106); POTASSIUM - SERUM 3.7 mmol/L (3.5-5.1); SODIUM 133 mmol/L (136-145); UREA NITROGEN 7 mg/dL (7-18); eGFR NON AFRICAN AMERICAN > 90 mL/min (90-120)
--- NOTE | 2020-01-17 08:12 | NUR ---
PATIENT RESTING IN BED, AROUSES EASILY, ORIENTED. DRESSINGS INTACT TO BBKA. MAGAÑA PATENT TO BEDSIDE DRAINGAGE. CL IN REACH
--- NOTE | 2020-01-17 13:31 | MORECARE ---
CASE MANAGEMENT DISCHARGE SUMMARY PATIENT: SRIKANTH JAMSE UNIT: [id number] ADM DATE: 01/15/20 AGE: 59 : 58 SEX: M ROOM/BED: D.2209 AUTHOR: BRENDEN JUSTIN PHYSICIAN: REFERRING PHYSICIAN: SCOT JAIN MD DATE OF SERVICE: 01/17/20 Discharge Plan Patient Name: SRIKANTH JAMES [facility] [facility] 1960 Planned Disposition: Home with Home Health Anticipated Discharge Date: Discharge Date: Expected LOS: Initial Reviewer: [email or web address] Initial Review Date: 01/15/2020 Generated: 01/17/20 2:31 pm DCPIA - Discharge Planning Initial Assessment Updated by [email or web address]: Florencia Kohler on 01/17/20 1:29 pm * Is the patient Alert and Oriented? Yes * How many steps to enter\exit or inside your home? * PCP CRISTOBAL * Pharmacy [facility] * Preadmission Environment Home Alone * ADLs Partial Dependent * Partial ADLs (Assistance needed) Ambulation * Equipment Hospital Bed Other Power Chair or Electric Scooter Trapeze Wheelchair * Other Equipment PT MAT SLIDE BOARD * List name and contact numbers for known caregivers / representatives who currently or will assist patient after discharge: PAT LUO [phone] * Verbal permission to speak to the caregivers and representatives has been obtained from the patient. N/A * Community resources currently utilized Home Health * Please name any agencies selected above. [facility] * Additional services required to return to the preadmission environment? No * Can the patient safely return to the preadmission environment? Yes * Has this patient been hospitalized within the prior 30 days at any hospital? Yes Patient Name: SRIKANTH JAMES Page [phone] at 1331 All edits/amendments must be made on the electronic document DICTATION DATE: 01/17/20 1331 ENVELOPE PATTERNMAKER: JARRED 01/17/20 1331 RPT#: [id number] DC DATE: STATUS: ADM IN [facility] [address] [place] [address] END OF REPORT
--- NOTE | 2020-01-17 13:39 | MORECARE ---
CASE MANAGEMENT DISCHARGE SUMMARY PATIENT: SRIKANTH JAMES UNIT: [id number] ADM DATE: 01/15/20 AGE: 59 : 58 SEX: M ROOM/BED: D.2200 AUTHOR: BRENDEN JUSTIN PHYSICIAN: REFERRING PHYSICIAN: SCOT JAIN MD DATE OF SERVICE: 01/17/20 Discharge Plan Patient Name: SRIKANTH JAMES Facility: [facility]:[place] : 1960 Planned Disposition: Home with Home Health Anticipated Discharge Date: Discharge Date: Expected LOS: Initial Reviewer: [email or web address] Initial Review Date: 01/15/2020 Generated: 01/17/20 2:38 pm Comments DCP- Discharge Planning Updated by [email or web address]: Florencia Kohler on 01/17/20 12:[address] Patient Name: SRIKANTH JAMES Admission Status: ER Accout number: [id number] Admission Date: 01-15-2020 : 1960 Admission Diagnosis:ANEMIA, UNSPECIFIED Attending: SCOT JAIN Current LOS: 2 Anticipated DC Date: Planned Disposition: Home with Home Health Primary Insurance: MEDICARE A & B Discharge Planning Comments: CM met with patient to complete initial dc planning assessment. CM educated patient on the CM role and verbal consent given by patient to complete assessment. Patient lives at home by himself where he states he was independent at home. He stated that that he has support from family/friends at home. At discharge patient plans to return home and feels this is a safe discharge. CM discussed availability of home health, rehab services, and medical equipment. He does NOT was inpatient rehab. He is current with [facility] and will have them back when he is discharged. He has a PT mat, wheelchair, electric wheelchair, slide board, hospital bed, trapeze bar. Patient denied known discharge needs at this time. CM will continue to follow and will assist as needed with dc plans/needs. Garden Consultant: Florencia Kohler DCPIA - Discharge Planning Initial Assessment Updated by [email or web address]: Florencia Kohler on 01/17/20 1:29 pm * Is the patient Alert and Oriented? Yes * How many steps to enter\exit or inside your home? * PCP CRISTOBAL * Pharmacy [facility] * Preadmission Environment Home Alone * ADLs Partial Dependent * Partial ADLs (Assistance needed) Ambulation * Equipment Hospital Bed Other Power Chair or Electric Scooter Trapeze Wheelchair * Other Equipment PT MAT SLIDE BOARD * List name and contact numbers for known caregivers / representatives who currently or will assist patient after discharge: PAT LUO [phone] * Verbal permission to speak to the caregivers and representatives has been obtained from the patient. N/A * Community resources currently utilized Home Health * Please name any agencies selected above. [facility] * Additional services required to return to the preadmission environment? No * Can the patient safely return to the preadmission environment? Yes * Has this patient been hospitalized within the prior 30 days at any hospital? Yes Coverage Notice Reviewer: [id number] Miley Kohler Notice Issued Date-Time: 01/17/2020 12:30 Notice Type: Patient Choice Letter Notice Delivered To: Patient Relationship to Patient: Associate Embalmer/Funeral Director Name: Delivery Method: HAND - Hand Delivered Mine Days: Prior Verbal Notification: Recipient Understood Notice: Yes Recipient Signature: Yes Med Rec Note Co-signed by Attending: Coverage Notice Comment: ward to continue home health with [facility] Last DP export: 01/17/20 12:31 p Patient Name: SRIKANTH JAMES Page [phone] at 1339 All edits/amendments must be made on the electronic document DICTATION DATE: 01/17/201337 SWISS TYPE SCREW MACHINE OPERATOR: JARRED 01/17/201337 RPT#: [id number] DC DATE: STATUS: ADM IN [facility] [address] [place] [address] END OF REPORT
--- NOTE | 2020-01-17 18:54 | NUR ---
PATIENT RESTING WITH NO NEEDS VOICED, CL IN REACH
--- NOTE | 2020-01-17 19:35 | NUR ---
A&O X 4, DENIES PAIN. SUPIN IN BED, LOWER EXTREMETIES ELEVATED. 1ST STEP OVERLAY MATTRESS IN USE. NO S/SX OF DISTRESS, WILL CONTINUE TO MONITOR
[2020-01-17 21:43] LABS: HEMATOCRIT 38.7 % (42.0-54.0); HEMOGLOBIN 13.4 g/dL (13.5-17.5)
[2020-01-18] VITALS (17 sets, daily range): BP systolic 91–135; BP diastolic 8–104; Ht 180.3 cm; Wt 90.2 kg
[2020-01-18 04:38] LABS: BASOPHILS 0.1 % (0-2); EOSINOPHILS 1.6 % (0-7); HEMATOCRIT 39.1 % (42.0-54.0); HEMOGLOBIN 13.5 g/dL (13.5-17.5); IMMATURE GRANULOCYTES 0.6 % (0-5); MCH 31.6 pg (26.0-34.0); MCHC 34.5 g/dL (31.0-37.0); MCV 91.6 fL (80.0-100.0); MEAN PLATELET VOLUME 8.2 fL (7.4-10.4); MONOCYTES 10.1 % (2-11); NEUTROPHILS 80.6 % (40-80); PLATELET COUNT 343 10x3/uL (130-400); RBC 4.27 10x6/uL (4.20-6.10); RDW 15.8 % (11.5-14.5); WBC 10.2 10x3/uL (4.8-10.8)
[2020-01-18 04:47] LABS: CALC OSMOLALITY 264 mosm/kg (275-300); CALCIUM 8.2 mg/dL (8.5-10.1); CARBON DIOXIDE 21.7 mmol/L (21.0-32.0); CHLORIDE - SERUM 103 mmol/L (98-107); CREATININE - SERUM 0.4 mg/dL (0.6-1.3); GLUCOSE 87 mg/dL (74-106); MAGNESIUM - SERUM 1.6 mg/dL (1.8-2.4); POTASSIUM - SERUM 3.3 mmol/L (3.5-5.1); SODIUM 134 mmol/L (136-145); UREA NITROGEN 6 mg/dL (7-18); eGFR NON AFRICAN AMERICAN > 90 mL/min (90-120)
--- NOTE | 2020-01-18 05:10 | NUR ---
I have reviewed this patient and I concur with the Shift Assessment completed by the Licensed Practical Nurse today this shift.
--- NOTE | 2020-01-18 09:45 | NUR ---
INCREASED SHORTNESS OF BREATH.SATS 95 AFTER PLACING PATIENT ON 3 LITERS PER CANULA. PATIENTS COLORS IS DUSKY. RAPID RESPONCE CALLED SEE RAPID SHEET.
--- NOTE | 2020-01-18 09:45 | NUR ---
ONCE PATIENT ARRIVED, PT GCS WAS 14.
--- NOTE | 2020-01-18 10:17 | NUR ---
ALL TO FAMILY PUJA STEWART TO INFORM HIM OF PATIENT BEING MOVED TO ICU, ROOM 6565
--- NOTE | 2020-01-18 10:20 | NUR ---
REPORT TO ICU, SPOKE WITH HAILEY
[2020-01-18 10:34] LABS: CALC OSMOLALITY 266 mosm/kg (275-300); CALCIUM 8.8 mg/dL (8.5-10.1); CHLORIDE - SERUM 103 mmol/L (98-107); CREATININE - SERUM 0.5 mg/dL (0.6-1.3); GLUCOSE 120 mg/dL (74-106); POTASSIUM - SERUM 4.4 mmol/L (3.5-5.1); SODIUM 134 mmol/L (136-145); UREA NITROGEN 7 mg/dL (7-18); eGFR NON AFRICAN AMERICAN > 90 mL/min (90-120)
[2020-01-18 10:37] LABS: CARBON DIOXIDE 15.8 mmol/L (21.0-32.0)
[2020-01-18 10:39] LABS: CKMB 2.8 U/L (0.0-3.6); CREATINE KINASE 52 UL (21-232)
[2020-01-18 10:47] LABS: TROPONIN-I 0.226 ng/mL (0.000-0.060)
--- NOTE | 2020-01-18 10:52 | NUR ---
PT ARRIVED IN THE UNIT. PT SOB. HOB ELEVATED. SVT ON THE MONITOR 160 BPM. CARDIZEM GIVEN PER ORDERS. PT NOTED TO HAVE BILATERAL BKA. DR JAIN PAGED FOR FURTHER ORDERS.
--- NOTE | 2020-01-18 11:07 | NUR ---
DR ELKIN BOUDREAUX R/T CONSULT.
--- NOTE | 2020-01-18 11:07 | NUR ---
DR EAGLE AT THE PTS BEDSIDE.
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
--- NOTE | 2020-01-18 11:46 | NUR ---
DR EAGLE PAGED. OK TO EAT AND DRINK. DR GRANGER AT THE PTS BEDSIDE. SEE ORDERS. DC CARDIZEM GTT ONCE PO MEDS GIVEN.
--- NOTE | 2020-01-18 14:06 | NUR ---
Nutrition follow-up: Pt has been NPO for surgery today; however, rapid response called and now pt in ICU. Surgery canceled and regular diet resumed PO intake 25-50% of meals Labs reviewed Wt: 175# RDN following.
[2020-01-18 16:44] LABS: HEMATOCRIT 44.8 % (42.0-54.0); HEMOGLOBIN 15.3 g/dL (13.5-17.5)
--- NOTE | 2020-01-18 16:57 | NUR ---
PT HEART RATE BELOW 100 NSR. VSS. PT BREATHING BETTER. WILL CONT POC.
--- NOTE | 2020-01-18 19:14 | NUR ---
REPORT RECEIVED, SHIFT ASSESSMENT COMPLETED PER FLOW SHEET, SEE FOR DETAILS. INFORMED BY DAY SHIFT RN Soumya MONTOYA THAT CARDIZEM DRIP IS OFF PER DR. GRANGER'S ORDERS, AND TO KEEP PATIENT NPO AFTER MIDNIGHT. 2133 SCHEDULED MEDS GIVEN, SEE EMAR FOR DETAILS. 2313 REASSESSMENT COMPLETED PER FLOW SHEET, SEE FOR DETAILS. 0100 RESTING, DENIES NEEDS, WILL CONTINUE TO MONITOR. 0317 REASSESSMENT COMPLETED PER FLOW SHEET, SEE FOR DETAILS. 0440 LOW UOP NOTED, BLADDER SCAN OBATINED, 318 ML NOTED. PATIENT HAS NO COMPLAINTS AT THIS TIME. 0500 COMPLETE CHG BATH GIVEN, COMPLETE BED LINEN CHANGE PROVIDED [address] MEADE WHO IS FRETTED INSTRUMENT INSPECTOR FOR DR. JAIN TO INFORM HIM OF LOW UOP AND UPDATE HIM ON PATIENT'S STATUS. 05 DR. MEADE RETURNED CALL, INFORMED HIM OF PATIENT'S STATUS AND LOW UOP, REVIEWED HOME MEDS, INFORMED HIM OF BLADDER SCAN RESULTS, NEW ORDERS RECEIVED, SEE ORDERS FOR DETAILS.
[2020-01-18 22:17] LABS: HEMATOCRIT 39.4 % (42.0-54.0)
[2020-01-19] VITALS (20 sets, daily range): BP systolic 91–105; BP diastolic 60–84
[2020-01-19 04:23] LABS: HEMATOCRIT 43.2 % (42.0-54.0); HEMOGLOBIN 14.2 g/dL (13.5-17.5); MCH 31.6 pg (26.0-34.0); MCHC 32.9 g/dL (31.0-37.0); MEAN PLATELET VOLUME 8.9 fL (7.4-10.4); PLATELET COUNT 371 10x3/uL (130-400); RDW 16.3 % (11.5-14.5); WBC 20.5 10x3/uL (4.8-10.8)
--- NOTE | 2020-01-19 04:33 | NUR ---
PAGED EUGENIA GUIDRY TO INFORM HIM OF RECENT LAB VALUES AND UPDATE HIM ON PATIENT'S STATUS.
--- NOTE | 2020-01-19 04:35 | NUR ---
EUGENIA GUIDRY RETURNED CALL, UPDATED HIM ON PATIENT'S STATUS, REVIEWED VS, I&0, LAB RESULTS, IV DRIPS AND INFORMED HIM THAT PATIENT HAS NO MOTOR OR EYE OPENING RESPONSE DESPITE SEDATION BEING DECREASED, INFORMED HIM THAT RR DID COME UP TO 18-20 WHEN FENTANYL WAS DECREASED BUT BECAUSE PATIENT'S BREATHING BECAME IRREGULAR FENTANYL RATE WAS INCREASED BACK TO 200 MCG. NEW ORDERS RECEIVED TO INFORM RT TO INCREASE RATE ON VENTILATOR.
[2020-01-19 04:43] LABS: CALCIUM 8.3 mg/dL (8.5-10.1); CARBON DIOXIDE 17.4 mmol/L (21.0-32.0); CHLORIDE - SERUM 102 mmol/L (98-107); GLUCOSE 96 mg/dL (74-106); SODIUM 135 mmol/L (136-145)
[2020-01-19 04:46] LABS: CALC OSMOLALITY 269 mosm/kg (275-300); CREATININE - SERUM 0.9 mg/dL (0.6-1.3); UREA NITROGEN 13 mg/dL (7-18)
[2020-01-19 04:47] LABS: LYMPHOCYTES 7 % (15-50); MONOCYTES 1 % (2-11); NEUTROPHILS 92 % (40-80); eGFR NON AFRICAN AMERICAN > 90 mL/min (90-120)
[2020-01-19 04:48] LABS: PLATELET ESTIMATE NORMAL
--- NOTE | 2020-01-19 07:00 | NUR ---
RECEIVED BEDSIDE REPORT ON PATIENT AND ASSUMED CARE. PATIENT AWAKE AND ALERT ORIENTED X 4, WATCHING TV, NO NEEDS AT THIS TIME. VSS. HR - SR RATE OF 88, WITH NO ECTOPY NOTED. RR - 18, NON LABORED, RRR, BBS CLEAR DIMINISHED IN THE BASES. BILATERAL AMPUTATIONS OF LEGS BKA, DRESSINGS C/D/I, MAGAÑA CATH IN PLACE WITH STRAW COLORED UOP CLOUDY NOTED. UC AND UA COLLECTED AND SENT TO LAB. IV 20 GA TO RIGHT FA INFUSING NS AT 75 ML/HR WITH NO S/S OF INFILTRATION NOTED. HEAD TO TOE ASSESSMENT COMPLETED.
[2020-01-19 08:36] LABS: BILIRUBIN NEGATIVE (NEGATIVE); GLUCOSE NEGATIVE (NEGATIVE); KETONE MODERATE mg/dL (NEGATIVE); NITRITE NEGATIVE (NEGATIVE); UROBILINOGEN NORMAL (NORMAL)
[2020-01-19 08:42] LABS: BACTERIA FEW /hpf (NEGATIVE); EPITHELIAL CELLS 0-5 /hpf (0-5); WHITE CELLS - URINE 0-5 /hpf (NEGATIVE)
[2020-01-19 08:44] LABS: RED CELLS - URINE 0-5 /hpf (0-5)
--- NOTE | 2020-01-19 08:56 | NUR ---
MORNING MEDS GIVEN PER MAR, NO NEEDS AT THIS TIME. VSS.
--- NOTE | 2020-01-19 10:20 | NUR ---
Bedside report taken and patient care assumed at this time.
--- NOTE | 2020-01-19 12:38 | NUR ---
Patient sitting up in bed watching TV. Denies any needs at this time. Bed locked and in low position. Call light within reach.
--- NOTE | 2020-01-19 13:00 | NUR ---
Consents for Bilateral Above Knee Amputation with Dr Multani have been signed and placed in the front of the chart.
--- NOTE | 2020-01-19 16:45 | NUR ---
Bowel movement; partial linen change. Repositioned for comfort. Bed locked and in low position. Call light and personal items within reach.
--- NOTE | 2020-01-19 16:56 | NUR ---
SPOKE WITH DR MICHAUD. OK TO TRANSFER TO THE FLOOR.
--- NOTE | 2020-01-19 20:34 | NUR ---
RECEIVED PATIENT TO ROOM 2111 VIA BED FROM ICU. PATIENT IS AAOX4, BEDFAST. BILAT BKA, CHRONIC MAGAÑA TO RT SIDE OF BED, EMPTIED JUST BEFORE TRANSFER. PIV TO RT FA INFUSING NS @ 125 ON ARRIVAL. QUICK START, PHARM AND MED REC COMPLETE. HS MEDS ADMINISTERED PER ORDERS. PATIENT DENIES FURTHER NEEDS AT THIS TIME. CL IN REACH, BED LOCKED AND LOWERED. WILL CTM.
--- NOTE | 2020-01-19 21:43 | NUR ---
CORE SHAPER TOP REPORTED BP 91/60 AND RR 36. RECHECK BY MANUAL BP 88/62 AND RR 40. PATIENT STATES HE'S RR ARE ALWAYS LIKE THIS, ACCORDING TO PREVIOUS VS HIS RR WERE IN THE LOW TO MID 20S. PATIENT IS ASYMPTOMATIC. TELEMETRY APPLIED AND READING 82 SR. PATIENT DENIES DISCOMFORT OR NEEDS AT THIS TIME. WILL CTM.
[2020-01-20] VITALS: BP 88/54
--- NOTE | 2020-01-20 03:04 | NUR ---
I have reviewed this patient and I concur with the Shift Assessment completed by the Licensed Practical Nurse today this shift.
[2020-01-20 04:00] VITALS: BP 90/66
[2020-01-20 05:59] LABS: BASOPHILS 0.1 % (0-2); EOSINOPHILS 0.1 % (0-7); HEMATOCRIT 41.7 % (42.0-54.0); HEMOGLOBIN 13.9 g/dL (13.5-17.5); IMMATURE GRANULOCYTES 3.1 % (0-5); LYMPHOCYTES 6.3 % (15-50); MCHC 33.3 g/dL (31.0-37.0); MCV 96.1 fL (80.0-100.0); MEAN PLATELET VOLUME 9.1 fL (7.4-10.4); MONOCYTES 10.3 % (2-11); NEUTROPHILS 80.1 % (40-80); PLATELET COUNT 312 10x3/uL (130-400); RBC 4.34 10x6/uL (4.20-6.10); RDW 16.5 % (11.5-14.5); WBC 17.2 10x3/uL (4.8-10.8)
[2020-01-20 06:24] LABS: ANION GAP 18.9 mmol/L (8-16); CALCIUM 8.6 mg/dL (8.5-10.1); CARBON DIOXIDE 15.7 mmol/L (21.0-32.0); POTASSIUM - SERUM 4.6 mmol/L (3.5-5.1)
[2020-01-20 07:22] LABS: CREATININE - SERUM 1.2 mg/dL (0.6-1.3)
--- NOTE | 2020-01-20 07:53 | NUR ---
PT LYING IN BED. CHANGED NS FROM 125 TO 75ML/HR AND GAVE PT INCENTIVE SPIROMETER AND EXPLAINED HOW TO USE. PT VERBALIZED UNDERSTANDING. BED LOW. CL IN REACH.
--- NOTE | 2020-01-20 08:40 | NUR ---
CALLED SX AND ASKED IF I NEED TO HOLD OR GIVE HEPARIN. THEY STATED THEY WOULD FIND OUT AND CALL ME BACK.
[2020-01-20 08:52] VITALS: BP 97/66
--- NOTE | 2020-01-20 08:58 | NUR ---
SPOKE WITH ISACC IN SX SHE STATES DR. EAGLE STATES TO HOLD HEPARIN. I VERBALIZED UNDERSTANDING.
--- NOTE | 2020-01-20 09:25 | NUR ---
WORKED WITH PT ON INCENTIVE SPIROMETRY.
--- NOTE | 2020-01-20 09:32 | NUR ---
CALLED AND SPOKE WITH PHARMACY ABOUT SAMSCA AND THEY STATE THEY WILL BRING IT UP.
--- NOTE | 2020-01-20 12:07 | NUR ---
Nutrition Follow-up: NPO for will AKAs today. Wt: 198.4# (01/18); 175# (01/14 - stated) Labs noted: Na 134 Meds noted: NS @ 75, Protonix -Rec resume diet when medically feasible. -Monitor wt; noted daily wts ordered. -RD following.
--- NOTE | 2020-01-20 12:30 | NUR ---
MYKE CAME TO NURSES STATION AND STATES PT IS SUPPOSSED TO BE A DNR. ASKED PT IF SOMETHING WAS TO HAPPEN TO HIM DOES HE WANT CPR DONE ON HIM AND FOR US TO TAKE EVERY MEASURE TO BRING HIM BACK. PT STATES "I JUST DON'T WANT TO BE A VEGETABLE." I THEN STATED TO PT FOR EXAMPLE WHEN YOPU GO TO SX TODAY IF YOU WHILE THEY WERE DOING SX WOULD YOU WANT THEM TO DO CHEST COMPRESSIONS AND PUT A TUBE DOWN YOUR THROAT SO YOU WOULD BE ABLE TO BREATH AND DO MEDICATION MEASURES. PT STATES "THAT'S HARD TO SAY. I'M NOT SURE." I VERBALIZED UNDERSTANDING AND STATED MY CONVERSATION TO DR. AJIN AND HE STATES "WELL THAT'S NOT A DNR THEN."
[2020-01-20 12:46] VITALS: BP 100/69
[2020-01-20 13:18] LABS: HEMATOCRIT 45.9 % (42.0-54.0); HEMOGLOBIN 14.9 g/dL (13.5-17.5)
--- NOTE | 2020-01-20 13:22 | NUR ---
PT TAKEN TO SX VIA BED.
--- NOTE | 2020-01-20 14:17 | NUR ---
I have reviewed this patient and I concur with the Shift Assessment completed by the Licensed Practical Nurse today this shift.
--- NOTE | 2020-01-20 18:32 | NUR ---
1805 LEFT RADIAL ARTERIAL LINE DISCONTINUED. PRESSURE HELD FOR 15 MINUTES. NO ACTIVE BLEEDING OBSERVED. COBAN DRESSING APPLIED TO LEFT WRIST
[2020-01-20 18:50] VITALS: BP 121/80
--- NOTE | 2020-01-20 18:50 | NUR ---
PT ARRIVED TO FLOOR. BILATERAL WOUND VAC DRESSING C/D/I. PT AROUSES TO VOICE. VS STABLE. BED LOW. CL IN REACH. BED ALARM ON. WILL CONTINUE TO MONITOR.
[2020-01-20 20:44] VITALS: BP 113/78
[2020-01-20 22:42] LABS: HEMATOCRIT 44.2 % (42.0-54.0); HEMOGLOBIN 13.6 g/dL (13.5-17.5)
[2020-01-21 01:16] VITALS: BP 108/59
[2020-01-21 01:21] VITALS: BP 93/66
[2020-01-21 05:45] VITALS: BP 96/68
--- NOTE | 2020-01-21 07:00 | NUR ---
RECEIVED REPORT. ASSUMED CARE OF PATIENT. CALL LIGHT WITHIN REACH. CONTINUOUS 02 SAT @ 97% ON HIGH FLOW NASAL CANULA. PATIENT RESTING WITH EYES CLOSED, EASILY AROUSED. LAB AT BEDSIDE TRYING TO DRAW LABS, UNSUCCESSFUL AT THIS TIME. NO DISTRESS.
--- NOTE | 2020-01-21 09:00 | NUR ---
CODE STATUS - AT BEDSIDE DISCUSSING CODE STATUS WITH PATIENT. PATIENT STATES "NO" WHEN ASKED IF HE WANTS CHEST COMPRESSIONS (CPR) OR IF HE WANTED TO BE INTUBATED. WILL CALL CAREGIVERS TO INFORM THEM OF PATIENTS WISHES.
[2020-01-21 09:04] VITALS: BP 107/76
[2020-01-21 09:38] LABS: BASOPHILS 0.1 % (0-2); EOSINOPHILS 0 % (0-7); HEMATOCRIT 43.1 % (42.0-54.0); IMMATURE GRANULOCYTES 2.6 % (0-5); LYMPHOCYTES 5.8 % (15-50); MCH 31.7 pg (26.0-34.0); MCHC 32.5 g/dL (31.0-37.0); MCV 97.5 fL (80.0-100.0); MEAN PLATELET VOLUME 8.8 fL (7.4-10.4); MONOCYTES 16.2 % (2-11); NEUTROPHILS 75.3 % (40-80); RBC 4.42 10x6/uL (4.20-6.10); RDW 16.9 % (11.5-14.5); WBC 15.9 10x3/uL (4.8-10.8)
[2020-01-21 09:39] LABS: PLATELET COUNT 233 10x3/uL (130-400)
--- NOTE | 2020-01-21 09:53 | NUR ---
DNR PLACED ON CHART.
[2020-01-21 10:07] LABS: CREATININE - SERUM 1.3 mg/dL (0.6-1.3)
[2020-01-21 10:33] LABS: ANION GAP 20.2 mmol/L (8-16); CARBON DIOXIDE 20.8 mmol/L (21.0-32.0)
--- NOTE | 2020-01-21 11:20 | NUR ---
PATIENT PROVIDED WITH JUICE AT THIS TIME. PATIENT REFUSED PROBIOTIC SCHEDULED AT THIS TIME. 1ST STEP OVERLAY PATENT. NO DISTRESS. O2 SAT 100%. CALL LIGHT WITHIN REACH.
[2020-01-21 13:17] LABS: HEMATOCRIT 38.3 % (42.0-54.0); HEMOGLOBIN 12.7 g/dL (13.5-17.5)
--- NOTE | 2020-01-21 15:47 | NUR ---
REPOSITIONED PATIENT IN BED. PATIENT HOLLORING AND CURSING AT THIS HEADING MAKER. EMERSON, PATIENT CAREGIVER, AT BEDSIDE TO ASSIST AND STATES PATIENT NEVER ACTS THIS WAY. PATIENT NOW RESTING WITH EYES OPEN. RESP EVEN AND UNLABORED. O2 SAT 99%, HR 84. CALL LIGHT WITHIN REACH. NO DISTRESS.
--- NOTE | 2020-01-21 16:12 | OP ---
PATIENT NAME: SRIKANTH LU MEDICAL RECORD: [id number] :58 LOCATION:D. D.2111 ADMISSION DATE:01/15/20 SURGEON: SRIKANTH EAGLE, DATE OF OPERATION: 01/20/2020 PROCEDURE PERFORMED: Bilateral above-knee amputations and hardware removal from bilateral femur. PREOPERATIVE DIAGNOSIS: Bilateral below-knee amputation wound dehiscence. POSTOPERATIVE DIAGNOSIS: Bilateral below-knee amputation wound dehiscence. INDICATIONS: Mr. Lu is a 59-year-old male who had bilateral below-knee amputations about a month ago, he had dehiscence of the wounds and was set to have bilateral above-knee amputations last Thursday; however, he had made himself not n.p.o. and put on for Thursday the . He had a rapid response called in for respiratory issues as he had been admitted for in patient's status over the weekend and then today he was stable enough to have the procedure. He was aware of the risks including further wound dehiscence further pain, blood clots, infection, continued problems with wound and continued problems healing and even . He signed the consent. SURGEON: Srikanth Eagle MD PROCEDURE: The patient was taken to the operative suite, laid in supine position, given general anesthetic and intubated. Bilateral lower extremities were then prepped and draped in sterile fashion. Timeout was performed. Everyone was in agreement as to the correct side, site, patient, and procedure. We then proceeded with a right femur first, the right AK first. Tourniquet was inflated to 350 mmHg, was up for 34 minutes. We then made an incision down in a fishmouth pattern for the above knee amputation. The dissection was made down to the lateral plate. This was removed and the femur was cut first and the proximal screws were taken out. Then, the vessels were encountered and tied off and then the femur cut. Then, the tourniquet was let down. Any bleeding was coagulated with Aquamantys and the plasma blade. Once sufficient or adequate blood control was achieved, Restrata graft was put over the distal end of the femur that had been cut and then #1 Vicryl was used in an inverted fashion to hold the wound together through the fascia, then put Restrata below that and closed the skin with 2-0 Vicryl in inverted interrupted fashion and 3-0 Prolene in a [id number]-pk-xlbor fashion. This was done by Sathya Rossi, certified nurse who assisted me throughout the procedure. While that was being closed by Sathya Rossi, I started on the left. The tourniquet was inflated to 350 mmHg and the incision was made down to the femur. The vessels were again tied off and the femur was cut. He had a titanium nail in this femur and the Midas-Rexwas used with ultrasound jelly put over the cut site to catch the metal flakes and the nail was cut through and the femur was cut through. The vessels were then tied off prior to this and then the nerve was cut as well. This was also done on the right leg. At that point, the tourniquet was let down and bone wax has been placed over the nail and the exposed bone and then Restrata over that. The same process was repeated on the left with a #1 Vicryl to bring up the fascia and then Restrata was stuffed in that layer and 2-0 Vicryl in inverted interrupted fashion on the subcutaneous area and then a 3-0 Prolene and 2-0 Prolene was used in a horizontal mattress fashion to close the skin. He was then dressed with a Prevena plus VACs on bilateral legs and awakened and taken to recovery in stable condition. Blood loss approximately 300 mL. OPERATIVE REPORT [id number] SRIKANTH LU COMPLICATIONS: None. TRANSINT:[id number] Voice Confirmation ID: [id number] DOCUMENT ID: [id number] SRIKANTH EAGLE DO at 1612 CC: [id number] DICTATION DATE: 01/20/20 1755 CASH CONTROLLER: 01/21/20 0203 ADM IN [facility] [address] [place] [address]
--- NOTE | 2020-01-21 16:30 | NUR ---
PATIENT REFUSED PROTONIX.
--- NOTE | 2020-01-21 19:00 | NUR ---
REPROT RECEIVED. BEDSIDE SHIFT REPORT COMPLETE. PT RESTING IN BED. RR EVEN AND UNLABORED. NO S/SX OF DISTRESS OBSERVED AT THIS TIME. NO NEEDS EXPRESSED. CALL LIGHT IN REACH. WILL CTM.
--- NOTE | 2020-01-21 20:00 | NUR ---
PT AWAKE AND REFUSING VITALS AT THIS TIME. PT TRYING TO BITE THIS BINDERY PRODUCTION MANAGER WHEN ADJUSTING HIS NC. PT SCREAMING "NO" AND "STOP" BUT NOT ANSWERING QUESTIONS AT THIS TIME. WILL CTM
--- NOTE | 2020-01-21 21:30 | NUR ---
CALLED PTS CAREGIVER REGARDING PTS ALERTNESS. PTS CAREGIVER STATES THAT HE HAS BEEN REFUSING MEDS AND FOOD ALL DAY. SHE STATED THAT SHE IS "PROBABLY GOING TO TALK TO THE DOCTOR ABOUT HOSPICE". PT CONTINUES TO TRY TO BITE THIS EXPENSE CLERK WHEN ATTEMPTING TO PROVIDE CARE. WILL DRAKE.
--- NOTE | 2020-01-21 22:00 | NUR ---
ATTEMPTED TO PROVIDED PAIN MEDICATION AND PM MEDS. PT REFUSED SCREAMING "NO". NO S/SX OF DISCOMFORT AT THIS TIME. WILL CTM.
--- NOTE | 2020-01-22 01:11 | NUR ---
REINFORCED WOUND VAC TO LEFT EXTREMITIY ON THE TOP. PT AGREED TO DRINK SOME WATER AT THIS TIME, DRANK A FEW SWALLOWS WITH SOME DIFFICULTY. REPOSITIONED AT THIS TIME, PT CONTINUES TO YELL "NO, STOP" WILL CTM.
--- NOTE | 2020-01-22 03:08 | NUR ---
PT CONTINUES TO YELL AND TRY TO HIT NURSING STAFF. DENIES PAIN BUT STATED "TURN THE OXYGEN THE FUCK OFF". HUMIDIFIER APPLIED FOR COMFORT. CALL LIGHT IN REACH.
[2020-01-22 04:49] LABS: HEMATOCRIT 34.8 % (42.0-54.0); HEMOGLOBIN 11.4 g/dL (13.5-17.5)
--- NOTE | 2020-01-22 06:29 | NUR ---
PT STATED "I WANT A PAIN PILL" PROVIDED PAIN PILL AND PT SPIT IT OUT WITH ANOTHER NURSE PRESENT AT BEDIDE. PT STATED "I DONT WANT YOUR PAIN PILL" X2 ATEEMPTS. REPOSITONED FOR COMFORT, WILL CTM.
--- NOTE | 2020-01-22 07:00 | NUR ---
RECEIVED REPORT. ASSUMED CARE OF PATIENT. PATIENT RESTING WITH EYES CLOSED. EASILY AROUSED TO VERBAL STIMULI. PATIENT DENIES NEEDS AT THIS TIME. REMAINS ON FIRST STEP OVERLAY. CALL LIGHT WITHIN REACH. WOUND VACS PATENT TO BILATERAL AKA. NO DISTRESS. SR, RATE OF 78 ON TELEMETRY.
--- NOTE | 2020-01-22 07:10 | NUR ---
CAREGIVER EMERSON AT BEDSIDE. EMERSON STATES THAT THEY HAVE DECIDED THAT THEY WOULD LIKE TO PURSUE HOSPICE AT THIS TIME. THE PATIENT WAS QUESTIONED ABOUT HOSPICE ON THE PREVIOUS SHIFT AND HE EXPRESSED HIS CONCERNS FOR HOSPICE. AWAITING ON MD TO ROUND THIS AM.
--- NOTE | 2020-01-22 08:59 | NUR ---
PATIENT HOLLORING TO STOP IT AND NOBODY IS IN THE ROOM WITH PATIENT. PATIENT VERBALLY UNCONSOLIBLE. CALL LIGHT WITHIN REACH.
--- NOTE | 2020-01-22 09:08 | NUR ---
PATIENT HOLLORING "NO" "STOP IT" AND CURSING AT STAFF THEY ENTER THE ROOM. PATIENT WITH OXYGEN OFF. WHEN TRYING TO PLACE OXYGEN ON PATIENT, PATIENT GRABING THIS PRECINCT POLICE LIEUTENANT AND PINCHING AND SWINGING HIS ARMS. UNABLE TO PLACE OXYGEN ON PATIENT. PATIENT IS UNABLE TO VERBALLY BE REORIENTED. CALL LIGHT IS WITHIN REACH. PATIENT OFFERED WATER BUT HOLLORED NO BUT REACHED FOR CUP AND DRANK THE ENTIRE GLASS OF ICEWATER. COGNITIVE STATUS OF PATIENT IS PREVENTING CARES.
--- NOTE | 2020-01-22 09:23 | NUR ---
CAREGIVER EMERSON AT BEDSIDE. MD HERE FOR ROUNDS.
--- NOTE | 2020-01-22 09:59 | NUR ---
MEDICATED FOR PAIN AT THIS TIME. CALL LIGHT WITHIN REACH. NO DISTRESS. 02 SAT 97%
[2020-01-22 10:04] VITALS: BP 122/81
--- NOTE | 2020-01-22 11:31 | NUR ---
MEDICATED FOR ANXIETY. PATIENT SCREAMING AND HOLLORING "STOP IT" AND NOBODY AT BEDSIDE BOTHERING PATIENT.
--- NOTE | 2020-01-22 13:00 | MORECARE ---
CASE MANAGEMENT DISCHARGE SUMMARY PATIENT: SRIKANTH JAMES UNIT: [id number] ADM DATE: 01/15/20 AGE: 59 : 58 SEX: M ROOM/BED: D.2113 AUTHOR: BRENDEN JUSTIN PHYSICIAN: REFERRING PHYSICIAN: SCOT JAIN MD DATE OF SERVICE: 01/22/20 Discharge Plan Patient Name: SRIKANTH JAMES Facility: [facility]:[place] : 1960 Planned Disposition: Home with Home Health Anticipated Discharge Date: Discharge Date: Expected LOS: Initial Reviewer: [email or web address] Initial Review Date: 01/15/2020 Generated: 01/22/20 1:59 pm DCP- Discharge Planning Updated by [email or web address]: Florencia Kohler on 01/17/20 12:[address] Patient Name: SRIKANTH JAMES Admission Status: ER Accout number: [id number] Admission Date: 01-15-2020 : 1960 Admission Diagnosis:ANEMIA, UNSPECIFIED Attending: SCOT JAIN Current LOS: 2 Anticipated DC Date: Planned Disposition: Home with Home Health Primary Insurance: MEDICARE A & B Discharge Planning Comments: CM met with patient to complete initial dc planning assessment. CM educated patient on the CM role and verbal consent given by patient to complete assessment. Patient lives at home by himself where he states he was independent at home. He stated that that he has support from family/friends at home. At discharge patient plans to return home and feels this is a safe discharge. CM discussed availability of home health, rehab services, and medical equipment. He does NOT was inpatient rehab. He is current with [facility] and will have them back when he is discharged. He has a PT mat, wheelchair, electric wheelchair, slide board, hospital bed, trapeze bar. Patient denied known discharge needs at this time. CM will continue to follow and will assist as needed with dc plans/needs. Hand Surgeon: Florencia Kohler DCPIA - Discharge Planning Initial Assessment Updated by [email or web address]: Florencia Kohler on 01/17/20 1:29 pm * Is the patient Alert and Oriented? Yes * How many steps to enter\exit or inside your home? * PCP CRISTOBAL * Pharmacy [facility] * Preadmission Environment Home Alone * ADLs Partial Dependent * Partial ADLs (Assistance needed) Ambulation * Equipment Hospital Bed Other Power Chair or Electric Scooter Trapeze Wheelchair * Other Equipment PT MAT SLIDE BOARD * List name and contact numbers for known caregivers / representatives who currently or will assist patient after discharge: PAT LUO [phone] * Verbal permission to speak to the caregivers and representatives has been obtained from the patient. N/A * Community resources currently utilized Home Health * Please name any agencies selected above. [facility] * Additional services required to return to the preadmission environment? No * Can the patient safely return to the preadmission environment? Yes * Has this patient been hospitalized within the prior 30 days at any hospital? Yes External Providers External Provider: [facility](provides inp Next Contact Date: Service Request Date: Service Type: Resolution: Reviewer: Comments: Coverage Notice Reviewer: [email or web address] Miley Kohler Notice Issued Date-Time: 01/17/2020 12:30 Notice Type: Patient Choice Letter Notice Delivered To: Patient Relationship to Patient: Hospice Music Therapist Name: Delivery Method: HAND - Hand Delivered Mine Days: Prior Verbal Notification: Recipient Understood Notice: Yes Recipient Signature: Yes Med Rec Note Co-signed by Attending: Coverage Notice Comment: ward to continue home health with [facility] Last DP export: 01/17/20 12:39 p Patient Name: SRIKANTH JAMES Page [phone] at 1300 All edits/amendments must be made on the electronic document DICTATION DATE: 01/22/20 1259 COPY MESSENGER: JARRED 01/22/20 1259 RPT#: [id number] DC DATE: STATUS: ADM IN [facility] [address] [place] [address] END OF REPORT
--- NOTE | 2020-01-22 13:13 | MORECARE ---
CASE MANAGEMENT DISCHARGE SUMMARY PATIENT: SRIKANTH JAMES UNIT: [id number] ADM DATE: 01/15/20 AGE: 59 : 58 SEX: M ROOM/BED: D.2112 AUTHOR: NHAN,DOC PHYSICIAN: REFERRING PHYSICIAN: SCOT JAIN MD DATE OF SERVICE: 01/22/20 Discharge Plan Patient Name: SRIKANTH JAMES Facility: [facility]:[place] : 1960 Planned Disposition: Home with Home Health Anticipated Discharge Date: Discharge Date: Expected LOS: Initial Reviewer: [email or web address] Initial Review Date: 01/15/2020 Generated: 01/22/20 2:12 pm Comments DCP- Discharge Planning Updated by [email or web address]: Ana Maria Cr on 01/22/20 12:[address] Patient Name: SRIKANTH JAMES Admission Status: ER Accout number: [id number] Admission Date: 01-15-2020 : 1960 Admission Diagnosis:ANEMIA, UNSPECIFIED Attending: SCOT JAIN Current LOS: 7 Anticipated DC Date: Planned Disposition: Home with Home Health Primary Insurance: MEDICARE A & B Discharge Planning Comments: CM SPOKE WITH EMERSON STRINGER TODAY ABOUT PLANNING. WARD SIGNED FOR [facility] AND I RECEIVED A COPY OF THE POA. [facility]ER CONTACTED, WAITING FOR CALL BACK. REFERRAL FAXED TO [facility]. [facility] PHONE NUMBER [phone], HOSPICE TO PLEASE CALL ON ARRIVAL, SHE WORKS HERE IN THE HOSPITAL. Dough Molder Hand: Ana Maria Cr Appended by Ana Maria Cr on 01/22/2020 13:11 CDT: [facility] PHONE NUMBER [phone]. DCP- Discharge Planning Updated by [email or web address]: Florencia Kohler on 01/17/20 12:[address] Patient Name: SRIKANTH JAMES Admission Status: ER Accout number: [id number] Admission Date: 01-15-2020 : 1960 Admission Diagnosis:ANEMIA, UNSPECIFIED Attending: SCOT JAIN Current LOS: 2 Anticipated DC Date: Planned Disposition: Home with Home Health Primary Insurance: MEDICARE A & B Discharge Planning Comments: CM met with patient to complete initial dc planning assessment. CM educated patient on the CM role and verbal consent given by patient to complete assessment. Patient lives at home by himself where he states he was independent at home. He stated that that he has support from family/friends at home. At discharge patient plans to return home and feels this is a safe discharge. CM discussed availability of home health, rehab services, and medical equipment. He does NOT was inpatient rehab. He is current with [facility] and will have them back when he is discharged. He has a PT mat, wheelchair, electric wheelchair, slide board, hospital bed, trapeze bar. Patient denied known discharge needs at this time. CM will continue to follow and will assist as needed with dc plans/needs. Dough Molder Hand: Florencia Kohler DCPIA - Discharge Planning Initial Assessment Updated by [email or web address]: Florencia Kohler on 01/17/20 1:29 pm * Is the patient Alert and Oriented? Yes * How many steps to enter\exit or inside your home? * PCP CRISTOBAL * Pharmacy [facility] * Preadmission Environment Home Alone * ADLs Partial Dependent * Partial ADLs (Assistance needed) Ambulation * Equipment Hospital Bed Other Power Chair or Electric Scooter Trapeze Wheelchair * Other Equipment PT MAT SLIDE BOARD * List name and contact numbers for known caregivers / representatives who currently or will assist patient after discharge: PAT LUO [phone] * Verbal permission to speak to the caregivers and representatives has been obtained from the patient. N/A * Community resources currently utilized Home Health * Please name any agencies selected above. [facility] * Additional services required to return to the preadmission environment? No * Can the patient safely return to the preadmission environment? Yes * Has this patient been hospitalized within the prior 30 days at any hospital? Yes Coverage Notice Reviewer: [email or web address] - Florencia Kohler Notice Issued Date-Time: 01/17/2020 12:30 Notice Type: Patient Choice Letter Notice Delivered To: Patient Relationship to Patient: Master Cosmetologist Name: Delivery Method: HAND - Hand Delivered Mine Days: Prior Verbal Notification: Recipient Understood Notice: Yes Recipient Signature: Yes Med Rec Note Co-signed by Attending: Coverage Notice Comment: ward to continue home health with [facility] Reviewer: [id number] Miley Cr Notice Issued Date-Time: 01/22/2020 13:11 Notice Type: Patient Choice Letter Notice Delivered To: Other Relationship to Patient: Power of Optical Coating Technician Master Cosmetologist Name: EMERSON STEWART Delivery Method: HAND - Hand Delivered Mine Days: Prior Verbal Notification: Recipient Understood Notice: Yes Recipient Signature: Yes Med Rec Note Co-signed by Attending: Coverage Notice Comment: WARD FOR [facility]. Last DP export: 01/22/20 12:00 p Patient Name: SRIKANTH JAMES Page [phone] at 1313 All edits/amendments must be made on the electronic document DICTATION DATE: 01/22/201311 ARTIST AGENT: JARRED 01/22/201311 RPT#: [id number] DC DATE: STATUS: ADM IN [facility] [address] [place] [address] END OF REPORT
--- NOTE | 2020-01-22 13:31 | NUR ---
PATIENT RESTING IN BED WITH EYES CLOSED. NO DISTRESS. AWAITING HOSPICE ARRIVAL FOR CONSULT.
[2020-01-22 13:48] VITALS: BP 101/66
--- NOTE | 2020-01-22 13:56 | NUR ---
PATIENT REFUSE BLOOD DRAW AT THIS TIME.
--- NOTE | 2020-01-22 14:12 | MORECARE ---
CASE MANAGEMENT DISCHARGE SUMMARY PATIENT: SRIKANTH JAMES UNIT: [id number] ADM DATE: 01/15/20 AGE: 59 : 58 SEX: M ROOM/BED: D.2112 AUTHOR: BRENDEN JUSTIN PHYSICIAN: REFERRING PHYSICIAN: SCOT JAIN MD DATE OF SERVICE: 01/22/20 Discharge Plan Patient Name: SRIKANTH JAMES Facility: [facility]:[place] : 1960 Planned Disposition: Home with Home Health Anticipated Discharge Date: Discharge Date: Expected LOS: Initial Reviewer: [email or web address] Initial Review Date: 01/15/2020 Generated: 01/22/20 3:11 pm Comments DCP- Discharge Planning Updated by [email or web address]: Ana Maria Cr on 01/22/20 1:[address] Patient Name: SRIKANTH JAMES Admission Status: ER Accout number: [id number] Admission Date: 01-15-2020 : 1960 Admission Diagnosis:ANEMIA, UNSPECIFIED Attending: SCOT JAIN Current LOS: 7 Anticipated DC Date: Planned Disposition: Home with Home Health Primary Insurance: MEDICARE A & B Discharge Planning Comments: JEN SPOKE WITH EMERSON STRINGER TODAY ABOUT PLANNING. WARD SIGNED FOR [facility] AND I RECEIVED A COPY OF THE POA. [facility] CONTACTED, WAITING FOR CALL BACK. REFERRAL FAXED TO [facility]. [facility] PHONE NUMBER [phone], HOSPICE TO PLEASE CALL ON ARRIVAL, SHE WORKS HERE IN THE HOSPITAL. Center Receptionist: Ana Maria Cr Appended by Ana Maria Cr on 01/22/2020 13:11 CDT: [facility] PHONE NUMBER [phone]. Appended by Ana Maria Cr on 01/22/2020 14:07 CDT: PACKET FOR [facility] LEFT WITH MIQUEL AND RN NOTIFIED [facility] TO BE HERE AT APPROX 4PM TODAY. DCP- Discharge Planning Updated by [email or web address]: Florencia Kohler on 01/17/20 12:[address] Patient Name: SRIKANTH JAMES Admission Status: ER Accout number: [id number] Admission Date: 01-15-2020 : 1960 Admission Diagnosis:ANEMIA, UNSPECIFIED Attending: SCOT JAIN Current LOS: 2 Anticipated DC Date: Planned Disposition: Home with Home Health Primary Insurance: MEDICARE A & B Discharge Planning Comments: CM met with patient to complete initial dc planning assessment. CM educated patient on the CM role and verbal consent given by patient to complete assessment. Patient lives at home by himself where he states he was independent at home. He stated that that he has support from family/friends at home. At discharge patient plans to return home and feels this is a safe discharge. CM discussed availability of home health, rehab services, and medical equipment. He does NOT was inpatient rehab. He is current with [facility] and will have them back when he is discharged. He has a PT mat, wheelchair, electric wheelchair, slide board, hospital bed, trapeze bar. Patient denied known discharge needs at this time. CM will continue to follow and will assist as needed with dc plans/needs. Center Receptionist: Florencia Kohler DCPIA - Discharge Planning Initial Assessment Updated by [email or web address]: Florencia Kohler on 01/17/20 1:29 pm * Is the patient Alert and Oriented? Yes * How many steps to enter\exit or inside your home? * PCP CRISTOBAL * Pharmacy [facility] * Preadmission Environment Home Alone * ADLs Partial Dependent * Partial ADLs (Assistance needed) Ambulation * Equipment Hospital Bed Other Power Chair or Electric Scooter Trapeze Wheelchair * Other Equipment PT MAT SLIDE BOARD * List name and contact numbers for known caregivers / representatives who currently or will assist patient after discharge: PAT LUO [phone] * Verbal permission to speak to the caregivers and representatives has been obtained from the patient. N/A * Community resources currently utilized Home Health * Please name any agencies selected above. [facility] * Additional services required to return to the preadmission environment? No * Can the patient safely return to the preadmission environment? Yes * Has this patient been hospitalized within the prior 30 days at any hospital? Yes Coverage Notice Reviewer: [id number] - Florencia Kohler Notice Issued Date-Time: 01/17/2020 12:30 Notice Type: Patient Choice Letter Notice Delivered To: Patient Relationship to Patient: Tandem Mill Roller Name: Delivery Method: HAND - Hand Delivered Mine Days: Prior Verbal Notification: Recipient Understood Notice: Yes Recipient Signature: Yes Med Rec Note Co-signed by Attending: Coverage Notice Comment: ward to continue home health with [place] Reviewer: [id number] Miley Cr Notice Issued Date-Time: 01/22/2020 13:11 Notice Type: Patient Choice Letter Notice Delivered To: Other Relationship to Patient: Power of Armored Machine Operator Tandem Mill Roller Name: EMERSON STEWART Delivery Method: HAND - Hand Delivered Mine Days: Prior Verbal Notification: Recipient Understood Notice: Yes Recipient Signature: Yes Med Rec Note Co-signed by Attending: Coverage Notice Comment: WARD FOR [facility]. Last DP export: 01/22/20 12:13 p Patient Name: SRIKANTH JAMES Page [phone] at 1412 All edits/amendments must be made on the electronic document DICTATION DATE: 01/22/20 1411 COATING MANAGER: JARRED 01/22/20 1411 RPT#: [id number] DC DATE: STATUS: ADM IN [facility] [address] [place] [address] END OF REPORT
--- NOTE | 2020-01-22 14:15 | NUR ---
TURNED AND REPOSITIONED. NO DISTRESS. CALL LIGHT WITHIN REACH.
--- NOTE | 2020-01-22 15:18 | NUR ---
PATIENT NOT COMBATIVE AND NOT RESISTING HEPARIN INJECTION AT THIS TIME. NO DISTRESS.
--- NOTE | 2020-01-22 16:57 | NUR ---
PATIENT HOLLORING "STOP IT" "DONT" AND NOBODY IN ROOM WITH PATIENT. PATIENT PULLING ALL TELEMETRY WIRES OFF. PATIENT UNCOOPERATIVE AND AGGITATED. ATIVAN ADMINISTERED AT THIS TIME. HOSPICE HERE TO EVALUATE.
--- NOTE | 2020-01-22 19:35 | NUR ---
PT ADMITTED TO HOSPICE
--- NOTE | 2020-01-23 09:01 | MORECARE ---
CASE MANAGEMENT DISCHARGE SUMMARY PATIENT: SRIKANTH JAMES UNIT: [id number] ADM DATE: 01/15/20 AGE: 59 : 58 SEX: M ROOM/BED: D.2112 AUTHOR: BRENDEN JUSTIN PHYSICIAN: REFERRING PHYSICIAN: SCOT JAIN MD DATE OF SERVICE: 01/23/20 Discharge Plan Patient Name: SRIKANTH JAMES Facility: [facility]:[place] : 1960 Planned Disposition: Hospice Medical Facility Anticipated Discharge Date: 01/22/20 Discharge Date: 01/22/2020 Expected LOS: 7 Initial Reviewer: [email or web address] Initial Review Date: 01/15/2020 Generated: 01/23/20 10:01 am Comments DCP- Discharge Planning Updated by [id number]: Ana Maria Cr on 01/22/20 1:[address] Patient Name: SRIKANTH JAMES Admission Status: ER Accout number: [id number] Admission Date: 01-15-2020 : 1960 Admission Diagnosis:ANEMIA, UNSPECIFIED Attending: SCOT JAIN Current LOS: 7 Anticipated DC Date: Planned Disposition: Home with Home Health Primary Insurance: MEDICARE A & B Discharge Planning Comments: JEN SPOKE WITH EMERSON STRINGER TODAY ABOUT PLANNING. MICHAELA SIGNED FOR [facility] AND I RECEIVED A COPY OF THE POA. [facility] LIFE INSURANCE SALESPERSON CONTACTED, WAITING FOR CALL BACK. REFERRAL FAXED TO [facility]. [facility] PHONE NUMBER [phone], HOSPICE TO PLEASE CALL ON ARRIVAL, SHE WORKS HERE IN THE HOSPITAL. Quality Control Auditor: Ana Maria Cr Appended by Ana Maria Cr on 01/22/2020 13:11 CDT: [facility]ONE NUMBER [phone]. Appended by Ana Maria Cr on 01/22/2020 14:07 CDT: PACKET FOR [facility] LEFT WITH MIQUEL AND RN NOTIFIED [facility] TO BE HERE AT APPROX 4PM TODAY. DCP- Discharge Planning Updated by [id number]: Florencia Kohler on 01/17/20 12:[address] Patient Name: SRIKANTH JAMES Admission Status: ER Accout number: [id number] Admission Date: 01-15-2020 : 1960 Admission Diagnosis:ANEMIA, UNSPECIFIED Attending: SCOT JAIN Current LOS: 2 Anticipated DC Date: Planned Disposition: Home with Home Health Primary Insurance: MEDICARE A & B Discharge Planning Comments: CM met with patient to complete initial dc planning assessment. CM educated patient on the CM role and verbal consent given by patient to complete assessment. Patient lives at home by himself where he states he was independent at home. He stated that that he has support from family/friends at home. At discharge patient plans to return home and feels this is a safe discharge. CM discussed availability of home health, rehab services, and medical equipment. He does NOT was inpatient rehab. He is current with [facility] and will have them back when he is discharged. He has a PT mat, wheelchair, electric wheelchair, slide board, hospital bed, trapeze bar. Patient denied known discharge needs at this time. CM will continue to follow and will assist as needed with dc plans/needs. Quality Control Auditor: Florencia Kohler DCPIA - Discharge Planning Initial Assessment Updated by [id number]: Florencia Kohler on 01/17/20 1:29 pm * Is the patient Alert and Oriented? Yes * How many steps to enter\exit or inside your home? * PCP CRISTOBAL * Pharmacy [facility] * Preadmission Environment Home Alone * ADLs Partial Dependent * Partial ADLs (Assistance needed) Ambulation * Equipment Hospital Bed Other Power Chair or Electric Scooter Trapeze Wheelchair * Other Equipment PT MAT SLIDE BOARD * List name and contact numbers for known caregivers / representatives who currently or will assist patient after discharge: PAT PUJA [phone] * Verbal permission to speak to the caregivers and representatives has been obtained from the patient. N/A * Community resources currently utilized Home Health * Please name any agencies selected above. [facility] * Additional services required to return to the preadmission environment? No * Can the patient safely return to the preadmission environment? Yes * Has this patient been hospitalized within the prior 30 days at any hospital? Yes Coverage Notice Reviewer: [id number] - Florencia Kohler Notice Issued Date-Time: 01/17/2020 12:30 Notice Type: Patient Choice Letter Notice Delivered To: Patient Relationship to Patient: Newspaper Publisher Name: Delivery Method: HAND - Hand Delivered Mine Days: Prior Verbal Notification: Recipient Understood Notice: Yes Recipient Signature: Yes Med Rec Note Co-signed by Attending: Coverage Notice Comment: michaela to continue home health with [facility] Reviewer: [id number] Miley Cr Notice Issued Date-Time: 01/22/2020 13:11 Notice Type: Patient Choice Letter Notice Delivered To: Other Relationship to Patient: Power of Machine Brusher Newspaper Publisher Name: EMERSON STEWART Delivery Method: HAND - Hand Delivered Mine Days: Prior Verbal Notification: Recipient Understood Notice: Yes Recipient Signature: Yes Med Rec Note Co-signed by Attending: Coverage Notice Comment: MICHAELA FOR [facility]. Last DP export: 01/22/20 1:12 p Patient Name: SRIKANTH JAMES Page [phone] at 0901 All edits/amendments must be made on the electronic document DICTATION DATE: 01/23/20900 TRANSIT PROOF MACHINE OPERATOR: JARRED 01/23/20900 RPT#: [id number] DC DATE:01/22/20 STATUS: DIS IN [facility] [address] [place] [address] END OF REPORT
--- NOTE | 2020-01-27 11:26 | CN ---
PATIENT NAME:SRIKANTH LU MEDICAL RECORD: [id number] : 58 LOCATION:D. D.2112 ADMIT DATE: 01/15/20 ACCOUNT: [id number] CONSULTING PHYSICIAN: ERA GRANGER MD REFERRING PHYSICIAN: SCOT JAIN MD DATE OF CONSULTATION: 01/18/2020 DIAGNOSES: 1. Supraventricular tachycardia. 2. Peripheral vascular disease. 3. Hypertension. 4. Pulmonary embolus. 5. Xarelto anticoagulation. HISTORY OF PRESENT ILLNESS: Mr. Lu has had a BKA. He is now here for an AKA. His heart went into a tachyarrhythmia with rate of 180s. He is found to be in a supraventricular tachycardia. He was given a bolus of Cardizem. He is now in the 140s. He does not have any chest pain or chest discomfort. He does feel palpitations with this. He does not have a history of these palpitations. He has a history of a pulmonary embolus for which he is on Xarelto anticoagulation, but no cardiac history. PHYSICAL EXAMINATION: CONSTITUTIONAL/GENERAL APPEARANCE: Well nourished, well developed, appears stated age. EYES: Lids and conjunctivae noninjected. No discharge. No pallor. ENT: Lips within normal limit. No cyanosis. No pallor. NECK: Carotid arteries, bilateral normal upstroke. No bruits. No thrills. No jugular venous pressure or distention. CERVICAL LYMPH NODES: Nontender. Nonenlarged. THYROID: Not enlarged. No nodules. CARDIOVASCULAR: Heart is tachycardic, regular at 140s. RESPIRATORY: Respiratory effort, unlabored. Normal curvature. No thoracic deformity. No chest wall tenderness. Percussion, resonant. Auscultation, clear. No wheezes, no rales, no rhonchi. ABDOMEN: Soft, nondistended, nontender. No abdominal pain, no vomiting and normal appetite. MUSCULOSKELETAL: No joint tenderness, normal gait, normal tone. SKIN: Warm and dry. OVERALL IMPRESSION: Supraventricular tachycardia versus a 2:1 atrial flutter. We will give another dose of diltiazem. We will also give sotalol 120 b.i.d. He is on a diltiazem drip. This can be weaned if the heart converts. TRANSINT:[id number] Voice Confirmation ID: [id number] DOCUMENT ID: [id number] ERA GRANGER MD at 1126 CC: [id number] DICTATION DATE: 01/18/20 1150 FISCAL ACCOUNTING CLERK: 01/18/20 1420 DIS IN 01/22/20 [place] [id number] [place] [id number]
--- NOTE | 2020-01-27 11:26 | EC ---
PATIENT:SRIKANTH JAMES DATE OF SERVICE: 01/15/20 SEX: M MEDICAL RECORD: [id number] DATE OF : 58 LOCATION:D.M2 D.211 AGE OF PATIENT: 60 ADMISSION DATE: 01/15/20 REFERRING PHYSICIAN: INTERPRETING PHYSICIAN: ERA RAO MD ECHOCARDIOGRAM REPORT ECHO CHARGES 4 ECHO COMPLETE Date: 01/18/20 CLINICAL DIAGNOSIS: SVT ECHOCARDIOGRAPHIC MEASUREMENTS (adult normal given) AC root (d.<3.7cm) 3.3 cm LV Septum d (<1.2 cm> 0.9 cm Valve Excursion 1.2 cm LV Septum (systole) 1.4 cm Left Atria (s.<4.0cm> 2.5 cm LVPW d(<1.2cm) 1.0 cm RV (d.<2.3cm) 4.4 cm LVPW (sytole) 1.1 cm LV diastole(<5.6CM) 5.6 cm MV E-F(>70mm/sec) cm LV systole 4.2 cm LVOT Diameter 1.7 cm MV exc.(>10mm) cm Est.ejection fraction (50-75%) % DOPPLER: LVIT cm/sec A 43 cm/sec E 85 cm/sec LA cm/sec RVSP 24.5 mmHg LVOT 67 cm/sec AOP1/2T m/s Asc. Ao 81 cm/sec RVOT 63 cm/sec RA cm/sec PA 70 cm/sec AV Gradient Peak 2.6 mmHg AV Mean 1.6 mmHg AV Area 21 cm MV Gradient Peak 4.2 mmHg MV Mean 1.9 mmHg MV Area cm COMMENTS: Russian Language Professor: Renzo [facility] Lens Coater: 1 Dr. Rao TAPE# PACS Pericardial Effusion N DATE OF SERVICE: FINDINGS: 1. Left ventricular chamber size is mildly dilated. Left ventricular systolic function is markedly reduced at 15% to 20%. 2. Left atrium, right atrium, and right ventricle chamber sizes are upper limits of normal. 3. Valvular structures have normal structure and motion. 4. Doppler interrogation reveals mild mitral regurgitation, no other valvular insufficiency or stenosis. Pulmonary systolic pressure is estimated at 24 mmHg. ECHOCARDIOGRAM REPORT [id number] SRIKANTH JAMES 5. No evidence of pericardial effusion or left ventricular thrombus. TRANSINT:[id number] Voice Confirmation ID: [id number] DOCUMENT ID: [id number] ERA RAO MD at 1126 CC: [id number] DICTATION DATE: 01/18/20 1407 SAMPLE EXAMINER: 01/18/20 1508 DIS IN 01/22/20 [facility] [place] [address] [place] [address]
== END 2020-01-22 20:34 | disposition hospice, inpatient (51) | DRG 811 ==
LOC: D.ICU → D.ER 13:13 → D.M2 17:13 → D.MS 17:13 → D.ICU 17:13 → D.M2 01-19 19:28
PROVIDERS: Emergency Medicine; Orthopaedic Surgery; ADMIT Family Medicine; ATTEND Family Medicine
DX: D64.9 Anemia, unspecified (principal); J18.9 Pneumonia, unspecified organism; I50.23 Acute on chronic systolic (congestive) heart failure; E87.1 Hypo-osmolality and hyponatremia; I47.1 Supraventricular tachycardia; I48.92 Unspecified atrial flutter; T87.81 Dehiscence of amputation stump; K21.9 Gastro-esophageal reflux disease without esophagitis; E88.09 Other disorders of plasma-protein metabolism, not elsewhere classified; I11.0 Hypertensive heart disease with heart failure

== ENCOUNTER 2020-01-22 20:09 | Inpatient (IN) | payer OTHER ==
[2020-01-23] VITALS: BP 132/84
--- NOTE | 2020-01-23 00:22 | NUR ---
PT RESTING QUIETLY. NO S/SX OF PAIN OR DISCOMFORT OBSERVED. WILL CTM.
[2020-01-23 09:00] VITALS: BP 127/32
--- NOTE | 2020-01-23 09:00 | NUR ---
PT RESTING IN BED WITH EYES CLOSED RR EVEN AND UNLABORED AT THIS TIME. ORAL CARE PROVIDED. OFFERED PT A DRINK. PT REFUSED. REPOSTIONED PT IN BED. NO S/S OF DISTRESS. VSS. PT COMFORTABLE. BED LOW CALL LIGHT WIITHIN REACH. WILL CONTINUE TO MONITOR.
--- NOTE | 2020-01-23 09:08 | MORECARE ---
CASE MANAGEMENT DISCHARGE SUMMARY PATIENT: SRIKANTH JAMES UNIT: [id number] ADM DATE: 01/22/20 AGE: 59 : 58 SEX: M ROOM/BED: D.2112 AUTHOR: BRENDEN JUSTIN PHYSICIAN: REFERRING PHYSICIAN: AUSTEN MCINTOSH MD DATE OF SERVICE: 01/23/20 Discharge Plan Patient Name: SRIKANTH JAMES [facility] [facility] 1960 Planned Disposition: Hospice Medical Facility Anticipated Discharge Date: Discharge Date: Expected LOS: Initial Reviewer: [email or web address] Initial Review Date: 01/23/2020 Generated: 01/23/20 10:07 am Patient Name: SRIKANTH JAMES Page [phone] at 0908 All edits/amendments must be made on the electronic document DICTATION DATE: 01/23/20906 WHOLESALE LOAN PROCESSOR: JARRED 01/23/20906 RPT#: [id number] DC DATE: STATUS: ADM IN [facility] [address] [place] [address] END OF REPORT
--- NOTE | 2020-01-23 09:14 | MORECARE ---
CASE MANAGEMENT DISCHARGE SUMMARY PATIENT: SRIKANTH JAMES UNIT: [id number] ADM DATE: 01/22/20 AGE: 59 : 58 SEX: M ROOM/BED: D.2112 AUTHOR: BRENDEN JUSTIN PHYSICIAN: REFERRING PHYSICIAN: AUSTEN MCINTOSH MD DATE OF SERVICE: 01/23/20 Discharge Plan Patient Name: SRIKANTH JAMES [facility] : 1960 Planned Disposition: Hospice Medical Facility Anticipated Discharge Date: Discharge Date: Expected LOS: Initial Reviewer: [email or web address] Initial Review Date: 01/23/2020 Generated: 01/23/20 10:14 am Comments DCP- Discharge Planning Updated by [id number]: Guanaco Jessica on 01/23/20 8:[address] Patient Name: SRIKANTH JAMES Admission Status: Elective Accout number: [id number] Admission Date: 01-22-2020 : 1960 Admission Diagnosis: Attending: AUSTEN MCINTOSH Current LOS: 1 Anticipated DC Date: Planned Disposition: Hospice Medical Facility Primary Insurance: [facility] PLANNED EXTERNAL PROVIDER: [facility] Discharge Planning Comments: CM REVIEWED CHART, PT ADMITTED TO [facility]IENT [facility]OSPICE WITH [facility]. CM ANTICIPATES NO NEEDS OF HOSPITAL CASE MANAGEMENT PT RECEIVES ALL CASE MANAGEMENT SERVICES FROM [facility]. Auto Heater Mechanic: Guanaco Jessica Last DP export: 01/23/20 8:08 a Patient Name: SRIKANTH JAMES Page [phone] at 0914 All edits/amendments must be made on the electronic document DICTATION DATE: 01/23/20913 CAMERA MECHANIC: JARRED 01/23/20913 RPT#: [id number] DC DATE: STATUS: ADM IN [facility] [address] [place] [address] END OF REPORT
[2020-01-23 11:00] VITALS: BP 145/93
--- NOTE | 2020-01-23 12:15 | NUR ---
PT RESTING WITH EYES CLOSED AT THIS TIME. RR EVEN AND UNLABORED. PT REFUSES O2 AND WONT LET ANYONE LOOK AT IV. PT YELLS NOOO! AND SWATS AT ME. PT DOESN'T APPEAR TO BE IN ANY PAIN AT THIS TIME. BED LOW CALL LIGHT WITHIN REACH. WILL CONTINUE TO MONITOR
--- NOTE | 2020-01-23 13:08 | NUR ---
PT AGGITATED AND THRASHING AROUND MAKING GRIMECING SOUNDS. PT IV OUT. UNABLE TO RESTART IV PT JERKING ARM BACK. MAGDALENA PAGED NEW ORDER FOR SUBLINGUAL ATIVAN ESTABLISHED. WILL CONTINUE TO MONITOR.
--- NOTE | 2020-01-23 13:45 | NUR ---
PT CALMED DOWN. ISIAH SHUKLA ASSISTED WITH NEW RADHA 20G IV. IT APPLICATION DEVELOPMENT MANAGER RESTARTED 2MG BOLUS GIVEN. PT RESTING COMFORTABLE AT THIS TIME. RR EVEN AND UNLABORED. WILL CONTINUE TO MONITOR.
--- NOTE | 2020-01-23 15:14 | NUR ---
REPOSTIONED PT IN BED. PT RESTING COMFORTABLY. RR 16 AND UNLABORED. NO S/S OF DISTRESS AT THIS TIME. WILL CONTINUE TO MONITOR.
--- NOTE | 2020-01-23 17:20 | NUR ---
PT RESTING COMFORTABLY. NO S/S OF DISTRESS. RR EVEN/UNLABORED. BED LOW CALL LIGHT WITHIN REACH. WILL CONTINUE TO MONITOR.
--- NOTE | 2020-01-23 18:28 | NUR ---
OFFERED PT HYDRATION PT REFUSED. PT RESTING COMFORTABLY AT THIS TIME. RR EVEN AND UNLABORED. NO S/S OF DISTRESS. WILL CONTINUE TO MONITOR.
--- NOTE | 2020-01-23 18:46 | NUR ---
I have reviewed this patient and I concur with the Shift Assessment completed by the Licensed Practical Nurse today this shift.
--- NOTE | 2020-01-23 19:15 | NUR ---
REPORT RECEIVED, WILL CONTINUE POC. PATIENT IS RESTING WITH EYES CLOSED, DID NOT DISTURB PATIENT, RR EVEN AND UNLABORED ON ROOM AIR, PATIENT REFUSING O2. PIV TO RT UPPER ARM INFUSING 1MG/HR OF MORPHINE, PATENT, DRSG C/D/I. F/C DRAING YELLOW URINE BY GRAVITY TO LT SIDE OF BED. CL IN REACH, BED LOCKED AND LOWERED. WILL CTM.
--- NOTE | 2020-01-23 20:06 | NUR ---
PATIENT REFUSED VS.
--- NOTE | 2020-01-23 21:29 | NUR ---
PATIENT RESTING WITH EYES CLOSED, LYING IN SEMI-FOWLERS POSITION. NO S/S OF DISTRESS OBSERVED. CL IN REACH.
--- NOTE | 2020-01-24 00:11 | NUR ---
UNABLE TO OBTAIN VS, PATIENT VERY UNCOOPERATIVE. WAS ABLE TO CHANGE PADS AND REPOSITION PATIENT. PLACED 10X10 MEPILEX TO SACRUM.
--- NOTE | 2020-01-24 01:52 | NUR ---
PATIENT RESTING COMFORTABLY.
--- NOTE | 2020-01-24 03:30 | NUR ---
PATIENT RESTING COMFORTABLY.
--- NOTE | 2020-01-24 05:16 | NUR ---
PATIENT RESTING WITH EYES CLOSED, NO S/S OF DISTRESS OBSERVED. RR EVEN AND UNLABORED ON ROOM AIR.
--- NOTE | 2020-01-24 05:38 | NUR ---
I have reviewed this patient and I concur with the Shift Assessment completed by the Licensed Practical Nurse today this shift.
--- NOTE | 2020-01-24 07:00 | NUR ---
RECEIVED REPORT. ASSUMED CARE OF PATIENT. CALL LIGHT WITHIN REACH. PATIENT RESTING WITH EYES CLOSED. RESP EVEN AND UNLABORED. IV WITH CONTINUOUS MORPHINE INFUSING ORDERED. 1ST STEP OVERLAY AND WOUND VACS TO BILATERAL AKA PATENT. NO DISTRESS. NO DISTRESS. NATALIE BELLO, HERE FOR AM ROUNDS AT THIS TIME.
--- NOTE | 2020-01-24 09:17 | NUR ---
ATTEMPTING TO PROVIDE CARES FOR PATIENT. PATIENT HITTING AT STAFF, HOLLORING. MEDICATED FOR AGGITATION AT THIS TIME. CARES RENDERED.
[2020-01-24 09:41] VITALS: BP 148/102
--- NOTE | 2020-01-24 12:29 | NUR ---
RESTING WITH EYES CLOSED. NO DISTRESS. CALL LIGHT WITHIH REACH. NO VISITORS AT BEDSIDE.
[2020-01-24 14:01] VITALS: BP 136/94
--- NOTE | 2020-01-24 14:54 | NUR ---
MEDICATED FOR ANXIETY. NO DISTRESS. CALL LIGHT WITHIN REACH.
--- NOTE | 2020-01-24 16:50 | NUR ---
NEW MORPHINE KILN CHARGER LOADED. PATIENT RESTING WELL. NO DISTRESS.
--- NOTE | 2020-01-24 19:25 | NUR ---
REPORT RECEIVED, WILL CONTINE POC. PATIENT IS RESTING WITH EYES CLOSED. NO S/S OF DISTRESS OBSERVED, RR EVEN AND UNLABORED ON ROOM AIR. PIV TO RT AC INFUSING NS@30ML/HR AND PRODUCTION TEAM ADVISOR MORPHINE 1MG/HR. WOUND VAC TO BILAT AKA AMPUTATIONS. F/C DRAINING YELLOW URINE BY GRAVITY TO LT SIDE OF BED, PATENT. CL IN REACH, BED LOCKED AND LOWERED. WILL CTM.
[2020-01-24 20:00] VITALS: BP 131/94
--- NOTE | 2020-01-24 20:25 | NUR ---
PATIENT MEDICATED FOR ANXIETY AT THIS TIME. HOSPITALIST NOCTURNIST PHYSICIAN ABLE TO OBATIN VS.
[2020-01-25 00:16] VITALS: BP 154/97
[2020-01-25 05:15] VITALS: BP 152/94
--- NOTE | 2020-01-25 06:25 | NUR ---
ADMINISTERED ORAL ATIVAN FOR ANXIETY AFTER ATTEMPTING TO ADMINISTERED IV ATIVAN. PATIENT PULL IV OUT BEFORE IT COULD BE ADMINISTERED. REPOSITIONED PATIENT IN BED. F/C PATENT, DRAINING DARK YELLOW URINE TO LEFT SIDE OF BED.
--- NOTE | 2020-01-25 06:27 | NUR ---
I have reviewed this patient and I concur with the Shift Assessment completed by the Licensed Practical Nurse today this shift.
[2020-01-25 07:59] VITALS: BP 161/99
--- NOTE | 2020-01-25 10:00 | NUR ---
PT AWAKE AND ORIENTED TALKING TO ME BUT VERY SHORT RESPONSES. PT IS ON HOSPICE BUT HE IS REFUSING ALL CARE. HE WONT LET US DO AN IV AND APPEARS IN PAIN, MOANING AND GRIMANCING. PT DID TELL ME "MY BACK ITCHES, SCRATCH IT" UPON SCRATCHING IT I NOTICED HIS SHEETS WERE ALL BUNDLED UP SO I WANTED TO REPOSITION HIM FOR COMFORT. UPON TRYING TO DO SO AND GIVE A BATH PT START YELLING "NO, NO, NO, STOP IT" PT DOESNT WANT ANYTHING AND IS WANTING TO BE LEFT ALONE. PT WILL NOT WEAR HIS OXYGEN OR LET US CHECK HIS O2 SAT HOWEVER HE APPEARS LABORED WITH SHALLOW BREATHS. ITS VERY SAD BUT WE CAN ONLY PROVIDE WHAT HE WILL ALLOW. MOUTH IS VERY DRY WITH NOTED CRUSTED STUFF ON HIS LIPS AND TONGUE. PT HIT MY HAND UPON ME TRYING TO PROVIDE ORAL CARE. I DISCUSSED WITH PT I WILL LET HIM REST AND THAT I WAS SORRY. ASKED PT TO PLEASE LET ME DO ANYTHING FOR HIM AND HE STATES "I WANT A BEER" WILL ORDER PT A BEER AND SEE IF HE WILL DRINK. ALSO WILL DISCUSS WITH HOSPICE ABOUT PT NOT WANTING OUR CARE AND SEE ABOUT HOME HOSPICE.
--- NOTE | 2020-01-25 12:45 | NUR ---
D/C BILAT AKA WOUND VAC AND APPLIED ADAPTIC DRSG WITH NONADHERENT DRSG AND WRAPPED WITH KERLIX. PT IS GOING TO BE DISCHARGED HOME TO HOME HOSPICE. UNABLE TO SIGN PAPERS WILL DOUBLE NURSE WITNESS. ARCHANA IS TO REMAIN IN PLACE. COLLECTED ALL PTS BELONGINGS AND WILL SEND WITH AMBULANCE. NO CURRENT NEEDS.
--- NOTE | 2020-01-25 13:46 | NUR ---
LADONNAFNET HERE FOR PT. ASSISTED PT ONTO STRETCHER. ALL BELONGINGS GATHERED IN CAMO DUFFLE BAG ALONG WITH PTS HEATED BLUE BLANKET. WOUND VAC PLACED IN SOILED UTILITY ALONG WITH AIR MATTRESS OVERLAY. PT NOW LEAVING NO FURTHER NEEDS.
--- NOTE | 2020-01-26 16:56 | MORECARE ---
CASE MANAGEMENT DISCHARGE SUMMARY PATIENT: SRIKANTH JAMES UNIT: [id number] ADM DATE: 01/22/20 AGE: 60 : 58 SEX: M ROOM/BED: D.2112 AUTHOR: BRENDEN JUSTIN PHYSICIAN: REFERRING PHYSICIAN: AUSTEN MCINTOSH MD DATE OF SERVICE: 01/26/20 Discharge Plan Patient Name: SRIKANTH JAMES [facility] [facility] 1960 Planned Disposition: Home with Hospice Anticipated Discharge Date: 01/25/20 Discharge Date: 01/25/2020 Expected LOS: 3 Initial Reviewer: [id number] Initial Review Date: 01/23/2020 Generated: 01/26/20 5:56 pm Comments DCP- Discharge Planning Updated by [email or web address]: Guanaco Jessica on 01/23/20 8:[address] Patient Name: SRIKANTH JAMES Admission Status: Elective Accout number: [id number] Admission Date: 01-22-2020 : 1960 Admission Diagnosis: Attending: AUSTEN MCINTOSH Current LOS: 1 Anticipated DC Date: Planned Disposition: Hospice Medical Facility Primary Insurance: [facility] PLANNED EXTERNAL PROVIDER: [facility] Discharge Planning Comments: CM REVIEWED CHART, PT ADMITTED TO [facility]IENT [facility]OSPICE WITH [facility]. JEN ANTICIPATES NO NEEDS OF HOSPITAL CASE MANAGEMENT PT RECEIVES ALL CASE MANAGEMENT SERVICES FROM [facility]. Blocker And Sewer: Guanaco Jessica Last DP export: 01/23/20 8:14 a Patient Name: SRIKANTH JAMES Page [phone] at 1656 All edits/amendments must be made on the electronic document DICTATION DATE: 01/26/201655 SUPERVISOR SLEEPING BAG DEPARTMENT: JARRED 01/26/201655 RPT#: [id number] DC DATE:01/25/20 STATUS: DIS IN [facility] [address] [place] [address] END OF REPORT
== END 2020-01-25 13:53 | disposition home health service (06) | DRG 951 ==
LOC: D.M2 20:09
PROVIDERS: ADMIT Legal Medicine; ATTEND Legal Medicine
DX: Z51.5 Encounter for palliative care (principal)